=== PATIENT | male | born 1960 | race Caucasian/White ===

== ENCOUNTER → 2018-10-15 | Outpatient (CLI) | payer OTHER ==
[~2018-10-15] MED LIST: ACET120S; ASPI81CH PO; ASPI81EC PO; ATOR10 PO; BENZ100A PO; BRAIN MIGHT-DH1 EACH; CARV3.125; FERSU90EL PO; GLIP10 PO; Humalog100 UNIT/1; LISI5 PO; MELO7.5 PO; METF500 PO; METF500C PO; METR500 PO; MORP30ER PO; Naprosyn500 MG PO; PRAV20 PO; SULTRIDS PO; TRESIBA FL100 UNIT/1 SQ; VIT1CAPS12
[2018-10-15 15:19] LABS: Albumin, Blood 3.7 g/dL (3.4-5.0); Albumin/Globulin Ratio 1.1 (0.8-1.8); Bilirubin, Total 0.6 mg/dL (0.1-1.0); Bun/Creatinine Ratio 13.7 (12.0-20.0); Calcium, Blood 9.7 mg/dL (8.5-10.1); Creatinine, Blood 2.49 mg/dL (0.60-1.20); Globulin, Blood 3.5 g/dL (2.2-4.0); Potassium, Blood 5.2 mmol/L (3.5-5.5); Total Protein, Blood 7.2 g/dL (6.4-8.2)
== END | disposition home or self-care (01) ==
LOC: LAB SHORT 14:32 → LAB 14:32
PROVIDERS: Nurse Practitioner Family
DX: R10.32 Left lower quadrant pain (principal)
CPT/HCPCS: 80053

== ENCOUNTER 2019-02-14 09:05 | Emergency (ER) | payer OTHER ==
[~2019-02-14] VITALS: Ht 172.7 cm; Wt 70.3 kg
[2019-02-14 09:34] LABS: BASOPHILS ABSOLUTE AUTO 0.07 K/mm3 (0.00-0.23); BASOPHILS PERCENT AUTO 1 % (0-2); EOSINOPHILS ABSOLUTE AUTO 0.34 K/mm3 (0.00-0.68); EOSINOPHILS PERCENT AUTO 3 % (0-6); Hematocrit 40.3 % (37.0-53.0); Hemoglobin 13.2 g/dL (13.5-17.5); IMMATURE GRAN ABSOLUTE AUTO 0.06 K/mm3 (0.00-0.10); IMMATURE GRAN PERCENT AUTO 1 % (0-1); LYMPHOCYTES ABSOLUTE AUTO 2.35 K/mm3 (0.84-5.20); LYMPHOCYTES PERCENT AUTO 22 % (21-46); MONOCYTES ABSOLUTE AUTO 0.57 K/mm3 (0.16-1.47); MONOCYTES PERCENT AUTO 5 % (4-13); Mean Corpuscular HGB 30.6 pg (26.0-34.0); Mean Corpuscular HGB Conc 32.8 g/dL (31.5-36.5); Mean Corpuscular Volume 93 fL (80-100); Mean Platelet Volume 9.7 fL (9.1-12.4); NEUTROPHILS ABSOLUTE AUTO 7.18 K/mm3 (1.96-9.15); NEUTROPHILS PERCENT AUTO 68 % (41-73); Platelet Count 262 K/mm3 (150-400); RDW Coefficient Variation 12.2 % (11.7-14.2); RDW Standard Deviation 42.1 fL (35.1-46.3); Red Blood Cell Count 4.32 M/mm3 (4.30-5.90); White Blood Cell Count 10.57 K/mm3 (4.00-11.30)
[2019-02-14 09:47] LABS: International Normalized Ratio 0.96; Prothrombin Time Results 10.2 Sec (9.7-11.5)
[2019-02-14] MEDS ORDERED: CLOP75 PO (09:47)
[2019-02-14 10:00] LABS: Albumin, Blood 3.6 g/dL (3.4-5.0); Bilirubin, Total 0.4 mg/dL (0.1-1.0); Bun/Creatinine Ratio 20.6 (12.0-20.0); Calcium, Blood 8.9 mg/dL (8.5-10.1); Creatinine, Blood 1.31 mg/dL (0.60-1.20); Globulin, Blood 3.5 g/dL (2.2-4.0); Potassium, Blood 5.1 mmol/L (3.5-5.5); Total Protein, Blood 7.1 g/dL (6.4-8.2)
[2019-02-14] MEDS ORDERED: Percocet 5-3251 EACH PO (11:24)
[2019-02-14] MEDS ORDERED: Zofran4 MG PO (11:24)
== END 2019-02-14 11:53 | disposition home or self-care (01) ==
LOC: ER 09:05
PROVIDERS: Physician Assistant
DX: R51 Headache (principal); R11.0 Nausea; E11.9 Type 2 diabetes mellitus without complications; Z87.891 Personal history of nicotine dependence; Z79.82 Long term (current) use of aspirin; Z79.4 Long term (current) use of insulin; Z79.02 Long term (current) use of antithrombotics/antiplatelets; Z79.899 Other long term (current) drug therapy; Z86.73 Personal history of transient ischemic attack (TIA), and cerebral infarction without residual deficits
CPT/HCPCS: 36415; 70450; 80053; 85025; 85610; 93005; 93010; 96374; 96375; 99284-25; J1170; J2405

== ENCOUNTER → 2021-05-14 | Outpatient (CLI) | payer OTHER ==
[~2021-05-14] MED LIST changes: +CLOP75 PO; +Percocet 5-3251 EACH PO; +Zofran4 MG PO
[2021-05-14 18:28] LABS: BASOPHILS ABSOLUTE AUTO 0.08 K/mm3 (0.00-0.23); BASOPHILS PERCENT AUTO 1 % (0-2); EOSINOPHILS PERCENT AUTO 3 % (0-6); Hematocrit 41.9 % (37.0-53.0); Hemoglobin 14.1 g/dL (13.5-17.5); IMMATURE GRAN PERCENT AUTO 1 % (0-1); LYMPHOCYTES ABSOLUTE AUTO 3.22 K/mm3 (0.84-5.20); LYMPHOCYTES PERCENT AUTO 25 % (21-46); MONOCYTES ABSOLUTE AUTO 0.72 K/mm3 (0.16-1.47); MONOCYTES PERCENT AUTO 6 % (4-13); Mean Corpuscular HGB 30.9 pg (26.0-34.0); Mean Corpuscular HGB Conc 33.7 g/dL (31.5-36.5); Mean Corpuscular Volume 92 fL (80-100); NEUTROPHILS PERCENT AUTO 65 % (41-73); Platelet Count 297 K/mm3 (150-400); RDW Coefficient Variation 12.5 % (11.7-14.2); RDW Standard Deviation 41.7 fL (35.1-46.3); Red Blood Cell Count 4.56 M/mm3 (4.30-5.90); White Blood Cell Count 12.82 K/mm3 (4.00-11.30)
== END | disposition home or self-care (01) ==
LOC: LAB SHORT 18:22
PROVIDERS: Physician Assistant
DX: G50.0 Trigeminal neuralgia (principal)
CPT/HCPCS: 85025; 85651

== ENCOUNTER 2021-10-31 10:26 | Day surgery (SDC) | payer OTHER ==
[~2021-10-31] VITALS: Ht 172.7 cm; Wt 68.0 kg
[2021-10-31] MEDS ORDERED: PERIDEX15 ML (11:17)
[2021-10-31] MEDS ORDERED: GABA300 (11:18)
[2021-10-31] MEDS ORDERED: HYDCHL25 (11:18)
[2021-10-31] MEDS ORDERED: INVOKANA100 MG (11:19)
--- NOTE | 2021-10-31 11:58 | NUR ---
10/31/21 1158 Jesus Alberto Vaughn 0.15MG EPI ADDED TO 30 ML'S OF 0.5% BUPIVACAINE TO ACHIEVE SOLUTION OF 1:200,000. 5 ML'S INJ INTO OPSITE BY MAE.
--- NOTE | 2021-10-31 13:51 | NUR ---
10/31/21 1351 LC WILKINSON PT DC SBA TO GO HOME WITH .
== END 2021-10-31 13:50 | disposition home or self-care (01) ==
LOC: ORSCSDS 10:26
PROVIDERS: Otolaryngology
PROC: 0JB10ZZ Excision of Face Subcutaneous Tissue and Fascia, Open Approach (ICD-10-PCS; principal; 2021-10-31 11:45)
DX: H61.002 Unspecified perichondritis of left external ear (principal); Z87.891 Personal history of nicotine dependence; I25.10 Atherosclerotic heart disease of native coronary artery without angina pectoris; E78.5 Hyperlipidemia, unspecified; Z79.899 Other long term (current) drug therapy; E11.22 Type 2 diabetes mellitus with diabetic chronic kidney disease; I12.9 Hypertensive chronic kidney disease with stage 1 through stage 4 chronic kidney disease, or unspecified chronic kidney disease; N18.4 Chronic kidney disease, stage 4 (severe); Z79.4 Long term (current) use of insulin; Z79.02 Long term (current) use of antithrombotics/antiplatelets
CPT/HCPCS: 82947; 87071; 87075; 87205; 88305; 88312; A9270; J0171; J1100; J2250; J2370; J2405; J2704; J3010; J7120

== ENCOUNTER 2022-11-29 07:33 | Observation (INO) | payer OTHER ==
[~2022-11-29] VITALS: Ht 172.7 cm; Wt 67.7 kg
[~2022-11-29 07:33] MED LIST changes: +GABA300; +HYDCHL25; +INVOKANA100 MG; +PERIDEX15 ML
[2022-11-29 08:11] LABS: BASOPHILS ABSOLUTE AUTO 0.06 K/mm3 (0.00-0.23); BASOPHILS PERCENT AUTO 1 % (0-2); EOSINOPHILS ABSOLUTE AUTO 0.16 K/mm3 (0.00-0.68); EOSINOPHILS PERCENT AUTO 2 % (0-6); Hematocrit 36.2 % (37.0-53.0); Hemoglobin 11.4 g/dL (13.5-17.5); IMMATURE GRAN ABSOLUTE AUTO 0.02 K/mm3 (0.00-0.10); IMMATURE GRAN PERCENT AUTO 0 % (0-1); LYMPHOCYTES ABSOLUTE AUTO 1.13 K/mm3 (0.84-5.20); LYMPHOCYTES PERCENT AUTO 12 % (21-46); MONOCYTES ABSOLUTE AUTO 0.49 K/mm3 (0.16-1.47); MONOCYTES PERCENT AUTO 5 % (4-13); Mean Corpuscular HGB 29.3 pg (26.0-34.0); Mean Corpuscular HGB Conc 31.5 g/dL (31.5-36.5); Mean Corpuscular Volume 93 fL (80-100); Mean Platelet Volume 9.7 fL (9.1-12.4); NEUTROPHILS ABSOLUTE AUTO 7.72 K/mm3 (1.96-9.15); NEUTROPHILS PERCENT AUTO 81 % (41-73); Platelet Count 329 K/mm3 (150-400); RDW Coefficient Variation 12.8 % (11.7-14.2); RDW Standard Deviation 43.8 fL (35.1-46.3); Red Blood Cell Count 3.89 M/mm3 (4.30-5.90); White Blood Cell Count 9.58 K/mm3 (4.00-11.30)
[2022-11-29 08:24] LABS: Albumin, Blood 3.5 g/dL (3.4-5.0); Albumin/Globulin Ratio 0.8 (0.8-1.8); Bilirubin, Total 0.4 mg/dL (0.1-1.0); Bun/Creatinine Ratio 20.9 (12.0-20.0); Calcium, Blood 9.1 mg/dL (8.5-10.1); Creatinine, Blood 2.73 mg/dL (0.60-1.20); Globulin, Blood 4.3 g/dL (2.2-4.0); Potassium, Blood 5.2 mmol/L (3.5-5.5); Total Protein, Blood 7.8 g/dL (6.4-8.2)
[2022-11-29 12:43] VITALS: BP 150/83
[2022-11-29 14:52] VITALS: BP 150/85
[2022-11-29] MEDS ORDERED: VITAMIN D5000 UNIT PO (16:21)
--- NOTE | 2022-11-29 18:41 | NUR ---
SHIFT SUMMARY: PATIENT ARRIVES TO ROOM AT AROUND 1220'S FROM ER FOR DX OF CVA. PATIENT A&OX3 AND FORGETFULL AT TIMES. NO DEFICIT NOTED. PERRLA WNL. SENSATIONS AND STRENGTH EQUAL TO ALL EXTREMITIES. PATIENT REPORTS HEADACHE " CONSTANT AND DULL." MEDICATED X1 c PO FIORECIT c ADEQUATE RELIEF. PATIENT WORK c PT MOBILITY TODAY. PATIENT AMBULATES TO BATHROOM c SBA WITHOUT ANY GAIT DIFFICULTIES AND NO ASSISTIVE DEVICE NEEDED. DENIES CP/PRESSURE. REPORTS SOB. PATIENT ON RA c SPO2 RANGES 96-99%. PATIENT ON ADA DIET c ACCU CHECK ACHS c NO INSULIN COVERAGE ORDER. VITAL SIGNS REVIEWED. PIV TO LAC SALINE LOCKED. CALL LIGHT IN REACH.
[2022-11-29 19:10] VITALS: BP 148/77
[2022-11-30 04:41] VITALS: BP 137/71
--- NOTE | 2022-11-30 05:02 | NUR ---
Summary: No acute events overnight. VSS. Patient requested something for sleep last night, gave melatonin. Headache this am, medicated per emar. Patient independent with ambulation in room. Call light in reach.
[2022-11-30 05:06] LABS: BASOPHILS ABSOLUTE AUTO 0.08 K/mm3 (0.00-0.23); BASOPHILS PERCENT AUTO 1 % (0-2); EOSINOPHILS ABSOLUTE AUTO 0.18 K/mm3 (0.00-0.68); EOSINOPHILS PERCENT AUTO 1 % (0-6); Hematocrit 36.3 % (37.0-53.0); Hemoglobin 11.9 g/dL (13.5-17.5); IMMATURE GRAN ABSOLUTE AUTO 0.08 K/mm3 (0.00-0.10); IMMATURE GRAN PERCENT AUTO 1 % (0-1); LYMPHOCYTES ABSOLUTE AUTO 1.27 K/mm3 (0.84-5.20); LYMPHOCYTES PERCENT AUTO 9 % (21-46); MONOCYTES ABSOLUTE AUTO 0.63 K/mm3 (0.16-1.47); MONOCYTES PERCENT AUTO 5 % (4-13); Mean Corpuscular HGB 29.8 pg (26.0-34.0); Mean Corpuscular HGB Conc 32.8 g/dL (31.5-36.5); Mean Corpuscular Volume 91 fL (80-100); Mean Platelet Volume 9.9 fL (9.1-12.4); NEUTROPHILS PERCENT AUTO 83 % (41-73); Platelet Count 331 K/mm3 (150-400); RDW Coefficient Variation 12.8 % (11.7-14.2); RDW Standard Deviation 42.6 fL (35.1-46.3); Red Blood Cell Count 3.99 M/mm3 (4.30-5.90); White Blood Cell Count 13.44 K/mm3 (4.00-11.30)
[2022-11-30 05:33] LABS: Albumin, Blood 3.1 g/dL (3.4-5.0); Albumin/Globulin Ratio 0.7 (0.8-1.8); Bilirubin, Total 0.6 mg/dL (0.1-1.0); Bun/Creatinine Ratio 19.8 (12.0-20.0); Creatinine, Blood 2.47 mg/dL (0.60-1.20); Globulin, Blood 4.6 g/dL (2.2-4.0); Magnesium, Blood 2.1 mg/dL (1.6-2.4); Potassium, Blood 5.2 mmol/L (3.5-5.5); Total Protein, Blood 7.7 g/dL (6.4-8.2)
[2022-11-30 08:15] VITALS: BP 154/80
[2022-11-30 10:25] VITALS: BP 129/57
[2022-11-30 15:42] VITALS: BP 130/67
[2022-11-30] MEDS ORDERED: Carvedilol12.5 MG PO (16:38)
[2022-11-30] MEDS ORDERED: OMEP20ER PO (16:39)
[2022-11-30] MEDS ORDERED: ATOR40TA PO (16:39)
[2022-11-30] MEDS ORDERED: LOSA25 PO (16:40)
[2022-11-30] MEDS ORDERED: CLOP75 PO (16:40)
--- NOTE | 2022-11-30 17:06 | NUR ---
SHIFT SUMMARY: Pt remains A&O X3 this shift. Denies pain. VSS. Ambulating with min ast. LSCTA on RA. Voiding without difficulty. Home med list updated with Marycruz MCGHEE and pt . Dr Byers at bedside. Plan is to dc home today.
--- NOTE | 2022-11-30 18:00 | NUR ---
DISCHARGE SUMMARY: All discharge instructions reviewed with pt and at bedside. Return verbal understanding received. Pt voiced preference to walk to main entrance. Steady gait noted.
== END 2022-11-30 17:52 | disposition home or self-care (01) ==
LOC: ER 07:33 → MEDS 11:23 → ER 11:52 → MEDS 11:52
PROVIDERS: Student in an Organized Health Care Education/Training Program; ADMIT Internal Medicine
DX: I63.9 Cerebral infarction, unspecified (principal); J44.9 Chronic obstructive pulmonary disease, unspecified; N17.9 Acute kidney failure, unspecified; I12.9 Hypertensive chronic kidney disease with stage 1 through stage 4 chronic kidney disease, or unspecified chronic kidney disease; E11.22 Type 2 diabetes mellitus with diabetic chronic kidney disease; N18.30 Chronic kidney disease, stage 3 unspecified; I25.10 Atherosclerotic heart disease of native coronary artery without angina pectoris; L40.9 Psoriasis, unspecified; F41.9 Anxiety disorder, unspecified; Z88.6 Allergy status to analgesic agent; Z88.1 Allergy status to other antibiotic agents
CPT/HCPCS: 36415; 70450; 70496; 70498; 80053; 82947; 83735; 85025; 92610; 93005; 93010; 93306; 96374-59; 96375-59; 97112; 97116; 97162; 99285-25; A9270; G0378; J0360; J1200; J1650; J2765; J3010; J7030; Q9967

== ENCOUNTER → 2023-12-19 | Outpatient (CLI) | payer OTHER ==
[~2023-12-19] MED LIST changes: +ATOR40TA PO; +Betamethasone D15 G1 TOP; +Carvedilol12.5 MG PO; +DUPIXENT300 MG/21 SC; +Deltasone 10 mg10 MG PO; +ENTRESTO 24 MG1 EACH PO; +FARXIGA10 MG PO; +HUMALOG100 UNIT/1 SC; +HYDCHL25 PO; +INSULIN GL300 UNIT/1 SC; +ISOMON20 PO; +LOSA25 PO; +METO25ER PO; +METPRE4DP PO; +NEURONTIN300 MG PO; +Norco 5-325 Ta1 EACH PO; +OMEP20ER PO; +SERT50 PO; +Triamcinolone A15 G3 TOP; +VITAMIN D5000 UNIT PO; +XARELTO20 MG PO
[2023-12-19 09:36] LABS: BASOPHILS ABSOLUTE AUTO 0.02 K/mm3 (0.00-0.23); BASOPHILS PERCENT AUTO 0 % (0-2); EOSINOPHILS ABSOLUTE AUTO 0.09 K/mm3 (0.00-0.68); EOSINOPHILS PERCENT AUTO 1 % (0-6); Hematocrit 30.7 % (37.0-53.0); IMMATURE GRAN ABSOLUTE AUTO 0.06 K/mm3 (0.00-0.10); IMMATURE GRAN PERCENT AUTO 1 % (0-1); LYMPHOCYTES PERCENT AUTO 11 % (21-46); MONOCYTES ABSOLUTE AUTO 0.48 K/mm3 (0.16-1.47); MONOCYTES PERCENT AUTO 5 % (4-13); Mean Corpuscular HGB 29.5 pg (26.0-34.0); Mean Corpuscular HGB Conc 32.6 g/dL (31.5-36.5); Mean Corpuscular Volume 91 fL (80-100); Mean Platelet Volume 9.9 fL (9.1-12.4); NEUTROPHILS ABSOLUTE AUTO 8.43 K/mm3 (1.96-9.15); NEUTROPHILS PERCENT AUTO 83 % (41-73); Platelet Count 309 K/mm3 (150-400); RDW Coefficient Variation 14.1 % (11.7-14.2); RDW Standard Deviation 46.8 fL (35.1-46.3); Red Blood Cell Count 3.39 M/mm3 (4.30-5.90); White Blood Cell Count 10.18 K/mm3 (4.00-11.30)
[2023-12-19 10:26] LABS: Albumin, Blood 3.1 g/dL (3.4-5.0); Anion Gap 14 mmol/L (6-16); Blood Urea Nitrogen 56 mg/dL (8-24); Bun/Creatinine Ratio 23.1 (12.0-20.0); CO2, Blood 23 mmol/L (21-32); Calcium, Blood 8.7 mg/dL (8.5-10.1); Chloride, Blood 107 mmol/L (98-108); Creatinine, Blood 2.42 mg/dL (0.60-1.20); Glomerular Filtration Rate 30 (60-); Glucose, Blood 123 mg/dL (70-99); Phosphorus, Blood 3.5 mg/dL (2.5-4.9); Potassium, Blood 5.7 mmol/L (3.5-5.5); Sodium, Blood 138 mmol/L (136-145)
[2023-12-19 11:09] LABS: Percent Saturation 16.3 % (20.0-50.0)
== END | disposition home or self-care (01) ==
LOC: LAB SHORT 09:20 → LAB 09:20
PROVIDERS: Family Medicine
DX: D64.9 Anemia, unspecified (principal); E87.5 Hyperkalemia
CPT/HCPCS: 36415; 80069; 82728; 83540; 83550; 83735; 85025

== ENCOUNTER 2024-02-26 09:33 | Emergency (ER) | payer OTHER ==
[~2024-02-26] VITALS: Ht 172.7 cm; Wt 64.9 kg
[~2024-02-26 09:33] MED LIST changes: +ATOR80 PO; +CALC.25 PO; +ELIQUIS5 M2 PO; +EPOGEN4000 UNIT/ INJ; +HUMALOG KW100 UNIT/1 SC; +MELATONIN5 M1 PO; +ONE DAILY ESS400 MCG PO; +PANT20 PO; +Vitamin D1000 UNI1 PO; +XARELTO15 MG PO; -XARELTO20 MG PO
[2024-02-26 09:51] LABS: BASOPHILS ABSOLUTE AUTO 0.05 K/mm3 (0.00-0.23); BASOPHILS PERCENT AUTO 1 % (0-2); EOSINOPHILS ABSOLUTE AUTO 0.17 K/mm3 (0.00-0.68); EOSINOPHILS PERCENT AUTO 2 % (0-6); Hemoglobin 9.3 g/dL (13.5-17.5); IMMATURE GRAN ABSOLUTE AUTO 0.04 K/mm3 (0.00-0.10); IMMATURE GRAN PERCENT AUTO 0 % (0-1); LYMPHOCYTES ABSOLUTE AUTO 0.87 K/mm3 (0.84-5.20); LYMPHOCYTES PERCENT AUTO 10 % (21-46); MONOCYTES ABSOLUTE AUTO 0.66 K/mm3 (0.16-1.47); MONOCYTES PERCENT AUTO 7 % (4-13); Mean Corpuscular HGB 28.4 pg (26.0-34.0); Mean Corpuscular Volume 92 fL (80-100); NEUTROPHILS ABSOLUTE AUTO 7.25 K/mm3 (1.96-9.15); NEUTROPHILS PERCENT AUTO 80 % (41-73); Platelet Count 372 K/mm3 (150-400); RDW Coefficient Variation 15.4 % (11.7-14.2); RDW Standard Deviation 50.7 fL (35.1-46.3); Red Blood Cell Count 3.27 M/mm3 (4.30-5.90); White Blood Cell Count 9.04 K/mm3 (4.00-11.30)
[2024-02-26 10:07] LABS: Albumin, Blood 2.8 g/dL (3.4-5.0); Albumin/Globulin Ratio 0.7 (0.8-1.8); Bilirubin, Total 0.5 mg/dL (0.1-1.0); Calcium, Blood 8.3 mg/dL (8.5-10.1); Creatinine, Blood 2.44 mg/dL (0.60-1.20); Magnesium, Blood 2.1 mg/dL (1.6-2.4); Potassium, Blood 4.4 mmol/L (3.5-5.5); Total Protein, Blood 6.8 g/dL (6.4-8.2)
[2024-02-26] MEDS ORDERED: Acetaminophen 500 MG Tab PO ONE (10:25)
[2024-02-26] MEDS ORDERED: Epoetin Alfa-EPBX 10,000 Unit/ML 1ML Vial SC ONE (11:30)
[2024-02-26] MEDS ORDERED: Epoetin Alfa-EPBX 4,000 UNIT/ML 1ML Vial SC ONE (12:10)
[2024-02-26 12:15] VITALS: BP 114/64
== END 2024-02-26 12:27 | disposition home or self-care (01) ==
LOC: ER 09:33
PROVIDERS: Physician Assistant
DX: R55 Syncope and collapse (principal); E11.22 Type 2 diabetes mellitus with diabetic chronic kidney disease; I12.9 Hypertensive chronic kidney disease with stage 1 through stage 4 chronic kidney disease, or unspecified chronic kidney disease; N18.30 Chronic kidney disease, stage 3 unspecified; J44.9 Chronic obstructive pulmonary disease, unspecified; E78.5 Hyperlipidemia, unspecified; Z86.73 Personal history of transient ischemic attack (TIA), and cerebral infarction without residual deficits; Z87.891 Personal history of nicotine dependence; Z79.899 Other long term (current) drug therapy; Z79.4 Long term (current) use of insulin; Z88.6 Allergy status to analgesic agent; Z88.1 Allergy status to other antibiotic agents; Z88.8 Allergy status to other drugs, medicaments and biological substances
CPT/HCPCS: 70450; 71046; 80053; 83735; 85025; 93005; 93010; 96372; 99285-25; A9270; Q5106

== ENCOUNTER 2024-03-03 13:40 | Inpatient (IN) | payer OTHER ==
[~2024-03-03] VITALS: Ht 172.7 cm; Wt 63.9 kg
[2024-03-03] MEDS ORDERED: Ondansetron HCl 2 MG / ML 2ML Vial IV PRN ×2 (13:55→18:35)
[2024-03-03 14:12] LABS: BASOPHILS ABSOLUTE AUTO 0.04 K/mm3 (0.00-0.23); BASOPHILS PERCENT AUTO 0 % (0-2); EOSINOPHILS PERCENT AUTO 0 % (0-6); Hematocrit 31.4 % (37.0-53.0); Hemoglobin 9.9 g/dL (13.5-17.5); IMMATURE GRAN ABSOLUTE AUTO 0.11 K/mm3 (0.00-0.10); IMMATURE GRAN PERCENT AUTO 1 % (0-1); LYMPHOCYTES PERCENT AUTO 3 % (21-46); MONOCYTES ABSOLUTE AUTO 0.73 K/mm3 (0.16-1.47); MONOCYTES PERCENT AUTO 5 % (4-13); Mean Corpuscular HGB 28.6 pg (26.0-34.0); Mean Corpuscular HGB Conc 31.5 g/dL (31.5-36.5); Mean Corpuscular Volume 91 fL (80-100); Mean Platelet Volume 9.8 fL (9.1-12.4); NEUTROPHILS ABSOLUTE AUTO 13.22 K/mm3 (1.96-9.15); NEUTROPHILS PERCENT AUTO 91 % (41-73); Platelet Count 263 K/mm3 (150-400); RDW Standard Deviation 53.2 fL (35.1-46.3); Red Blood Cell Count 3.46 M/mm3 (4.30-5.90)
[2024-03-03 14:38] LABS: Albumin, Blood 3.1 g/dL (3.4-5.0); Albumin/Globulin Ratio 0.7 (0.8-1.8); Bilirubin, Total 0.8 mg/dL (0.1-1.0); Calcium, Blood 9.1 mg/dL (8.5-10.1); Creatinine, Blood 4.12 mg/dL (0.60-1.20); Globulin, Blood 4.5 g/dL (2.2-4.0); Potassium, Blood 4.5 mmol/L (3.5-5.5); Total Protein, Blood 7.6 g/dL (6.4-8.2)
[2024-03-03] MEDS ORDERED: NS 1,000 ML IV SCH (16:00)
[2024-03-03 17:14] LABS: Influenza A, PCR NEGATIVE (NEGATIVE); Influenza B, PCR NEGATIVE (NEGATIVE); Resp Syncytial Virus, PCR NEGATIVE (NEGATIVE); SARS-Cov-2 (COVID-19) PCR, MMC NEGATIVE (NEGATIVE)
[2024-03-03] MEDS ORDERED: Cefepime HCl 1,000 MG in NS 100 ML IV ONE (17:45)
[2024-03-03 18:12] LABS: Source, Urine Voided
[2024-03-03 18:15] LABS: Appearance, Urine Clear (Clear); Bilirubin, Urine Neg (Neg); Blood, Urine 2+ (Neg); Color, Urine Yellow (P-Yellow); Glucose Qualitative, Urine Neg (Neg); Ketones, Urine Neg (Neg); Leukocyte Esterase, Urine Neg (Neg); Nitrite, Urine Neg (Neg); Protein, Urine 4+ (Neg); Urobilinogen, Urine 1+ (Normal)
[2024-03-03 18:24] LABS: Amorphous Light (0-Heavy); Bacteria Few /hpf; Squamous Epithelial Cells Rare /hpf (Few); White Blood Cells, Urine 0-2 /hpf (0-5)
[2024-03-03 18:25] LABS: Hyaline Casts 0-2 /lpf (0-2)
[2024-03-03] MEDS ORDERED: Acetaminophen 325 MG TABLET PO PRN (18:35)
[2024-03-03] MEDS ORDERED: Vancomycin HCL 1,500 MG in NS 250 ML IV ONE (20:00)
[2024-03-03] MEDS ORDERED: Vancomycin HCL 1,250 MG in NS 250 ML IV ONE (20:05)
[2024-03-03] MEDS ORDERED: Apixaban 5 MG Tab PO SCH (21:00)
[2024-03-03] MEDS ORDERED: Insulin Glargine-Yfgn 100 Unit/mL 3 ML SYR SC SCH (21:00)
[2024-03-03] MEDS ORDERED: NITR.4SL (21:07)
[2024-03-03 22:46] VITALS: BP 138/64
[2024-03-04] MEDS ORDERED: CALC.25 PO (01:41)
[2024-03-04] MEDS ORDERED: DUPIXENT P300 MG/2 M SC (01:42)
[2024-03-04] MEDS ORDERED: PROCRIT4000 UNIT/ SC (01:43)
[2024-03-04] MEDS ORDERED: TOUJEO SOL300 UNIT/2 SC (01:44)
[2024-03-04] MEDS ORDERED: MELATONIN5 M1 PO (01:45)
[2024-03-04] MEDS ORDERED: HUMALOG KW100 UNIT/1 SC (01:45)
[2024-03-04] MEDS ORDERED: MIRALAX17 GM PO (01:46)
[2024-03-04] MEDS ORDERED: PANT20 PO (01:46)
[2024-03-04] MEDS ORDERED: MULVITA PO (01:46)
[2024-03-04] MEDS ORDERED: Triamcinolone A15 G3 TOP (01:48)
[2024-03-04 03:50] VITALS: BP 116/70
--- NOTE | 2024-03-04 04:27 | NUR ---
SHIFT SUMMARY PATIENT ABLE TO SLEEP INLONG INTERVAL. C/O HEADACHE, BUT TOO EARLY TO MEDICATE WITH TYLENOL. TELE SR 81. NO NAUSEA DRINKING WATER
[2024-03-04 05:23] LABS: BASOPHILS ABSOLUTE AUTO 0.02 K/mm3 (0.00-0.23); BASOPHILS PERCENT AUTO 0 % (0-2); Hematocrit 24.6 % (37.0-53.0); LYMPHOCYTES ABSOLUTE AUTO 0.55 K/mm3 (0.84-5.20); LYMPHOCYTES PERCENT AUTO 4 % (21-46); MONOCYTES ABSOLUTE AUTO 0.96 K/mm3 (0.16-1.47); MONOCYTES PERCENT AUTO 7 % (4-13); Mean Corpuscular HGB Conc 32.5 g/dL (31.5-36.5); Mean Corpuscular Volume 89 fL (80-100); Mean Platelet Volume 9.9 fL (9.1-12.4); Platelet Count 199 K/mm3 (150-400); RDW Standard Deviation 51.9 fL (35.1-46.3); Red Blood Cell Count 2.76 M/mm3 (4.30-5.90); White Blood Cell Count 14.34 K/mm3 (4.00-11.30)
[2024-03-04 05:27] LABS: EOSINOPHILS PERCENT AUTO 0 % (0-6); IMMATURE GRAN ABSOLUTE AUTO 0.14 K/mm3 (0.00-0.10); IMMATURE GRAN PERCENT AUTO 1 % (0-1); NEUTROPHILS ABSOLUTE AUTO 12.67 K/mm3 (1.96-9.15); NEUTROPHILS PERCENT AUTO 88 % (41-73)
[2024-03-04 05:46] LABS: Bun/Creatinine Ratio 17.7 (12.0-20.0); Calcium, Blood 8.3 mg/dL (8.5-10.1); Creatinine, Blood 4.41 mg/dL (0.60-1.20); Magnesium, Blood 2.2 mg/dL (1.6-2.4)
[2024-03-04 05:50] LABS: BAND PERCENT MAN 4 % (0-8); BASOPHILS PERCENT MAN 0 % (0-2); EOSINOPHILS PERCENT MAN 0 % (0-6); LYMPHOCYTES ABSOLUTE MAN 0.14 K/mm3 (0.84-5.20); LYMPHOCYTES PERCENT MAN 1 % (21-46); MONOCYTES ABSOLUTE MAN 0.28 K/mm3 (0.16-1.47); MONOCYTES PERCENT MAN 2 % (4-13); SEG NEUTROPHILS PERCENT MAN 93 % (41-73); TOTAL CELLS COUNTED 100
[2024-03-04] MEDS ORDERED: Pantoprazole Sodium 20 MG Tab PO SCH (06:00)
[2024-03-04] MEDS ORDERED: Insulin Human Lispro 100 Units/ML 3ML Syringe SC SCH ×3 (07:30→21:00)
[2024-03-04 07:36] VITALS: BP 113/65
[2024-03-04] MEDS ORDERED: Heparin Sodium,Porcine 5,000 UNIT/0.5 ML SDV SC SCH (08:00)
[2024-03-04] MEDS ORDERED: Carvedilol 6.25 MG Tab PO SCH (08:00)
[2024-03-04] MEDS ORDERED: Metoprolol Succinate 50 MG TABCR PO SCH (09:00)
[2024-03-04] MEDS ORDERED: Atorvastatin 40 MG Tab PO SCH (09:00)
[2024-03-04 09:29] LABS: Vancomycin, Random 20.1 ug/mL
[2024-03-04] MEDS ORDERED: CefTRIAXone Sodium 1,000 MG in NS 100 ML IV SCH (12:00)
[2024-03-04] MEDS ORDERED: HYDROcodone 5-APAP 325 TAB PO PRN (12:30)
[2024-03-04 16:04] VITALS: BP 96/56
--- NOTE | 2024-03-04 17:19 | NUR ---
SHIFT SUMMARY; PATIENT WILL HAVE PERMA CATH REMOVED TOMORROW. HOPE IS FOR BEFORE NOON. PATIENT IS AO X 4 TODAY. AFEBRILE. COMPLAINS OF MIGRAINE HEADACHE EARLY AFTERNOON AND IS MEDICATED WITH HYDROCODONE 5/325 FOR PAIN. PATIENT SAYS IT BROUGHT LEVEL TO MANAGEABLE LEVEL. HE IS NOTED TO BE UP AMBULATING USING FWW IN HALLWAY AND AROUND UNIT. PATIENT HAS PLEASANT AFFECT AND IS COOPERATIVE WITH CARE. HIS CHEM BG ARE IN THE 200 RANGE THROUGHOUT DAY AND HE RECEIVES INSULIN ORDERED. HE IS ON A 2GM LOW SODIUM RENAL DIET AND 2 LITER FLUID RESTRICTION. WILL CONTINUE TO MONITOR THIS PATIENT CLOSELY UNTIL REPORT AND HAND OFF TO NOC SHIFT RN.
[2024-03-04] MEDS ORDERED: Cefepime HCl 1,000 MG in NS 100 ML IV SCH (18:00)
[2024-03-04 19:23] VITALS: BP 100/53
[2024-03-05 04:21] VITALS: BP 122/62
[2024-03-05 05:48] LABS: BASOPHILS ABSOLUTE AUTO 0.02 K/mm3 (0.00-0.23); BASOPHILS PERCENT AUTO 0 % (0-2); EOSINOPHILS ABSOLUTE AUTO 0.15 K/mm3 (0.00-0.68); EOSINOPHILS PERCENT AUTO 2 % (0-6); Hematocrit 24.7 % (37.0-53.0); IMMATURE GRAN ABSOLUTE AUTO 0.02 K/mm3 (0.00-0.10); IMMATURE GRAN PERCENT AUTO 0 % (0-1); LYMPHOCYTES ABSOLUTE AUTO 0.75 K/mm3 (0.84-5.20); LYMPHOCYTES PERCENT AUTO 8 % (21-46); MONOCYTES PERCENT AUTO 10 % (4-13); Mean Corpuscular HGB Conc 32.4 g/dL (31.5-36.5); Mean Corpuscular Volume 90 fL (80-100); Mean Platelet Volume 10.2 fL (9.1-12.4); NEUTROPHILS PERCENT AUTO 80 % (41-73); Platelet Count 182 K/mm3 (150-400); RDW Coefficient Variation 15.7 % (11.7-14.2); RDW Standard Deviation 50.7 fL (35.1-46.3); Red Blood Cell Count 2.76 M/mm3 (4.30-5.90); White Blood Cell Count 9.04 K/mm3 (4.00-11.30)
[2024-03-05 06:23] LABS: Albumin, Blood 2.5 g/dL (3.4-5.0); Anion Gap 13 mmol/L (3-11); Blood Urea Nitrogen 99 mg/dL (8-24); Bun/Creatinine Ratio 21.4 (12.0-20.0); CO2, Blood 25 mmol/L (21-32); Calcium, Blood 8.8 mg/dL (8.5-10.1); Chloride, Blood 97 mmol/L (98-108); Creatinine, Blood 4.62 mg/dL (0.60-1.20); Glomerular Filtration Rate 14 (60-); Glucose, Blood 169 mg/dL (70-99); Potassium, Blood 3.8 mmol/L (3.5-5.5); Sodium, Blood 131 mmol/L (136-145); Vancomycin, Random 15.8 ug/mL
--- NOTE | 2024-03-05 07:08 | NUR ---
NO ACUTE CHANGES OVERNIGHT. NO SIGNS OF FLUID OVERLOAD. NO SWELLING, LUNGS ARE CLEAR, NO SOB. PT HAS BEEN NPO SINCE MIDNIGHT. TALKED TO WARP TESTER MD AND GOT STOOL SOFTENERS ORDERED AND CLARIFIED OK TO HOLD SQ HEPARIN FOR PROCEDURE.
[2024-03-05 07:35] VITALS: BP 101/54
[2024-03-05] MEDS ORDERED: Sertraline HCl 50 MG Tab PO SCH (09:00)
[2024-03-05] MEDS ORDERED: Docusate Sodium/Senna 1 Tab PO SCH (09:00)
[2024-03-05] MEDS ORDERED: Vancomycin HCL 750 MG in NS 250 ML IV ONE (09:55)
[2024-03-05 14:39] VITALS: BP 111/74
--- NOTE | 2024-03-05 16:52 | NUR ---
SHIFT SUMMARY; PERMACATH REMOVED BY DR.SAVATORE KINNEY IN PATIENT ROOM. PATIENT TOLERATED WELL. MINIMAL BLEEDING NOTED AND PATIENT DENIES ANY PAIN AFTER PROCEDURE FROM PERMACATH SITE. PER MD PATIENT CAN TAKE SHOWER TOMORROW WITH SITE COVERED. PATIENT COMPLAINS OF FEELING VERY TIRED TODAY. HE IS NOTED TO BE UP AND AMBULATING IN HALLWAY OFTEN. HE HAS FAIR APPETITE AND SPOUSE BRINGS HIM VENISON WITH ONIONS FROM HOME. HIS BLOOD SUGARS ARE ELEVATE DURING DAY AND HE RECEVES INSULIN FOR COVERAGE. NEW ORDER FOR IRON PO TODAY.
[2024-03-05] MEDS ORDERED: Ferrous Sulfate 325 MG Tab PO SCH (17:00)
--- NOTE | 2024-03-05 18:23 | NUR ---
Encountered Pt. as he is slowly walking the halls with his walker. Pt. displays evidence of being weak, so this cigar bander hand stayed with him till he returned to the room. Pt. displayed evidence of mixed emotions. Pt. verbalized that he doesn't want to be a burden to his , while on his own he is trying to make himself stronger. Listen with empathy and pastoral care. Pts. overall demeanor reflected exhaustion. Once in is room, this cigar bander hand Prayed for the Pt. Pt. verbalized gratitude for the companionship and spiritual care support.
[2024-03-05 19:48] VITALS: BP 125/65
[2024-03-06 03:24] VITALS: BP 129/76
--- NOTE | 2024-03-06 04:30 | NUR ---
DRUG INSPECTOR SUMMARY NO ACUTE CHANGES OVERNIGHT. SITE WHERE PERMACATH WAS PULLED MONITORED AND REMAINS WNL. PT CONTINUES TO SHOW NO SIGNS OF FLUID OVERLOAD WITH VITALS WNL.
[2024-03-06 06:24] LABS: Vancomycin, Random 21.8 ug/mL
[2024-03-06 07:11] VITALS: BP 131/60
[2024-03-06] MEDS ORDERED: Insulin Human Lispro 100 Units/ML 3ML Syringe SC SCH (08:30)
[2024-03-06 08:32] LABS: BASOPHILS ABSOLUTE AUTO 0.03 K/mm3 (0.00-0.23); BASOPHILS PERCENT AUTO 0 % (0-2); EOSINOPHILS ABSOLUTE AUTO 0.09 K/mm3 (0.00-0.68); EOSINOPHILS PERCENT AUTO 1 % (0-6); Hematocrit 25.3 % (37.0-53.0); Hemoglobin 8.3 g/dL (13.5-17.5); IMMATURE GRAN ABSOLUTE AUTO 0.05 K/mm3 (0.00-0.10); IMMATURE GRAN PERCENT AUTO 1 % (0-1); LYMPHOCYTES ABSOLUTE AUTO 0.68 K/mm3 (0.84-5.20); LYMPHOCYTES PERCENT AUTO 8 % (21-46); MONOCYTES ABSOLUTE AUTO 0.72 K/mm3 (0.16-1.47); MONOCYTES PERCENT AUTO 9 % (4-13); Mean Corpuscular HGB 28.8 pg (26.0-34.0); Mean Corpuscular HGB Conc 32.8 g/dL (31.5-36.5); Mean Corpuscular Volume 88 fL (80-100); Mean Platelet Volume 10.2 fL (9.1-12.4); NEUTROPHILS ABSOLUTE AUTO 6.54 K/mm3 (1.96-9.15); NEUTROPHILS PERCENT AUTO 81 % (41-73); Platelet Count 205 K/mm3 (150-400); RDW Coefficient Variation 15.5 % (11.7-14.2); RDW Standard Deviation 49.9 fL (35.1-46.3); Red Blood Cell Count 2.88 M/mm3 (4.30-5.90); White Blood Cell Count 8.11 K/mm3 (4.00-11.30)
[2024-03-06 08:42] LABS: Albumin, Blood 2.5 g/dL (3.4-5.0); Anion Gap 14 mmol/L (3-11); Blood Urea Nitrogen 94 mg/dL (8-24); Bun/Creatinine Ratio 22.8 (12.0-20.0); CO2, Blood 23 mmol/L (21-32); Calcium, Blood 8.4 mg/dL (8.5-10.1); Chloride, Blood 101 mmol/L (98-108); Creatinine, Blood 4.13 mg/dL (0.60-1.20); Glomerular Filtration Rate 16 (60-); Glucose, Blood 206 mg/dL (70-99); Phosphorus, Blood 3.8 mg/dL (2.5-4.9); Sodium, Blood 134 mmol/L (136-145)
[2024-03-06] MEDS ORDERED: CeFAZolin Sodium 2,000 MG in NS 100 ML IV ONE (11:55)
--- NOTE | 2024-03-06 12:39 | NUR ---
CALL FROM SHA IN LAB: BLOOD CULTURE YIELDED GRAM-POSITIVE COCCI IN CLUSTERS.
[2024-03-06 14:56] VITALS: BP 132/74
[2024-03-06] MEDS ORDERED: Polyethylene Glycol 3350 17 gm PO SCH (15:35)
--- NOTE | 2024-03-06 15:36 | NUR ---
CONTACTED DR RAMOS FOR BOWEL MEDICATIONS. INFORMED HIM THAT PATIENT CONTINUES TO DUMP URINE MAKING IT DIFFICULT TO ACCURATELY MEASURE. PATIENT INDEPENDENT IN ROOM AND A/O X4. DOC WOULD LIKE TO CONTINUE TO OBTAIN MEASUREMENTS. SIGNAGE PLACED IN PATIENT'S BATHROOM AND GIVEN SEVERAL VERBAL REMINDERS TO SAVE URINE FOR MEASUREMENT. DISCUSSED PATIENT WRITING IT ON BOARD IF UNCOMFORTABLE WITH SAVING IT, PATIENT DEFERRED TO THE LATER. STRICT I &O ORDER PLACED.
--- NOTE | 2024-03-06 16:43 | NUR ---
SHIFT SUMMARY PATIENT INDEPENDENT IN ROOM. STRICT I &O, WHICH PATIENT HAS DIFFICULTIES WITH, SIGNAGE PLACED IN BATHROOM TO HELP HIM REMEMBER. GIVEN MIRALAX AND SWAMP JUICE THIS SHIFT WITH GOOD RESULTS, MEDIUM BM. C/O PAIN TO POSTERIOR RIGHT EAR OCCIPUT REGION, GIVEN NORCO FOR RELIEF. BLOOD CX RESULTED WITH BACTERIA GROWTH CONTINUED. ABLE TO MAKE NEEDS KNOWN. CALL LIGHT IN REACH WHEN IN ROOM. CARES ONGOING.
--- NOTE | 2024-03-06 18:43 | NUR ---
CONTACTED DR RAMOS REGARDING PERSISTENT RIGHT EAR PAIN. PATIENT STATES THE PAIN CAME ON SUDDENLY AND HASN'T RESPONDED TO NORCO DOSE GIVEN. RECEIVED ORDER FOR ONE TIME ADDITIONAL NORCO 10MG TO BE GIVEN AND TO CONTINUE TO OFFER ICE. STATED IF PAIN PERSISTED INTO TOMORROW HE WOULD CONSIDER IMAGING.
[2024-03-06] MEDS ORDERED: HYDROcodone 10-APAP 325 TAB PO ONE (18:45)
[2024-03-06 19:13] VITALS: BP 142/67
[2024-03-07] MEDS ORDERED: CeFAZolin Sodium 1,000 MG in NS 50 ML IV SCH
--- NOTE | 2024-03-07 03:44 | NUR ---
BIN FILLER SUMMARY NO ACUTE CHANGES OVERNIGHT. PT IS MAKING SOME URINE AND IS BEING COMPLIANT ABOUT USING THE URINAL INSTEAD OF THE TOILET. (SEE I$O). STRICT I AND O IN PROGRESS. NO SIGNS OF FLUID OVERLOAD. HE DOESNT APPEAR SWOLLEN, LUNGS ARE CLEAR, NO SOB WHILE AMBULATING IN THE HALLWAY. HE CONTINUES TO ASK FOR PAIN MEDICATION RELATED TO HIS FALL AT HOME (HIS HIPS AND RIBS ARE PAINFUL). BUT HE IS ALSO COMPLAINING OF PAIN BEHIND HIS R EAR, SHARP, STABBING AND INTERMITTENT. HE SAYS HE WILL DISCUSS THIS WITH HIS DOCTOR AGAIN TODAY. HE IS FIXATED ON GETTING HIS EAR EVALUATED.
[2024-03-07 04:23] VITALS: BP 161/82
[2024-03-07 07:49] VITALS: BP 144/62
[2024-03-07 09:23] LABS: Albumin, Blood 2.6 g/dL (3.4-5.0); Anion Gap 14 mmol/L (3-11); Blood Urea Nitrogen 95 mg/dL (8-24); Bun/Creatinine Ratio 25.6 (12.0-20.0); CO2, Blood 22 mmol/L (21-32); Calcium, Blood 8.9 mg/dL (8.5-10.1); Chloride, Blood 105 mmol/L (98-108); Creatinine, Blood 3.71 mg/dL (0.60-1.20); Glomerular Filtration Rate 18 (60-); Glucose, Blood 133 mg/dL (70-99); Phosphorus, Blood 3.2 mg/dL (2.5-4.9); Potassium, Blood 4.2 mmol/L (3.5-5.5); Sodium, Blood 137 mmol/L (136-145)
--- NOTE | 2024-03-07 14:47 | NUR ---
CALLED BLOOD CULTURE RESULTS TO DR RAMOS THAT WERE DRAWN 03/06. STATED NO CX TODAY, BUT WOULD DRAW TOMORROW AGAIN.
[2024-03-07 15:36] VITALS: BP 134/64
--- NOTE | 2024-03-07 17:31 | NUR ---
PATIENT DECLINED TO HAVE STAFF CHECK BLOOD SUGAR WITH OUR EQUIPMENT, HAS METER PLACED TO L ARM. STATED READING PRIOR TO EATING WAS 128. SPOUSE BROUGHT IN DINNER FROM [employer], APPROXIMATE CARBS CONSUMED THIS MEAL WAS 15. 1 UNIT HUMALOG ADMINISTERED.
--- NOTE | 2024-03-07 17:38 | NUR ---
SHIFT SUMMARY PATIENT INDEPENDENT IN ROOM AND HALLS THIS SHIFT, INTERACTING PLEASANTLY WITH STAFF. VSS AND WNL. ECHO SCHEDULED, WILL PROBABLY HAPPEN TOMORROW. CT OF FACE PERFOMED THIS SHIFT, FOLLOWING UP FROM C/O EAR PAIN. SEE REPORT. SEVERAL REMINDERS TO SAVE URINE OUTPUT FOR MEASURING. CONTINUES TO COMPLAIN OF RIGHT EAR PAIN, GIVEN NORCO WITH MINIMAL RELIEF, STATED IT TAKES THE EDGE OFF AND STOPS THE PULSATING SENSATION. CONTINUING TO WAIT FOR NEG BLOOD CX RESULTS. CALL LIGHT IN REACH WHEN IN ROOM, ABLE TO MAKE NEEDS KNOWN. CARES ONGOING.
[2024-03-07] MEDS ORDERED: Insulin Glargine-Yfgn 100 Unit/mL 3 ML SYR SC SCH (21:00)
[2024-03-07 21:22] VITALS: BP 171/77
[2024-03-07 22:00] VITALS: BP 158/92
[2024-03-08 04:45] VITALS: BP 144/57
[2024-03-08 06:06] LABS: BASOPHILS ABSOLUTE AUTO 0.05 K/mm3 (0.00-0.23); BASOPHILS PERCENT AUTO 1 % (0-2); EOSINOPHILS ABSOLUTE AUTO 0.17 K/mm3 (0.00-0.68); EOSINOPHILS PERCENT AUTO 2 % (0-6); Hematocrit 26.8 % (37.0-53.0); Hemoglobin 8.7 g/dL (13.5-17.5); IMMATURE GRAN ABSOLUTE AUTO 0.42 K/mm3 (0.00-0.10); IMMATURE GRAN PERCENT AUTO 4 % (0-1); LYMPHOCYTES ABSOLUTE AUTO 1.36 K/mm3 (0.84-5.20); LYMPHOCYTES PERCENT AUTO 14 % (21-46); MONOCYTES ABSOLUTE AUTO 0.82 K/mm3 (0.16-1.47); MONOCYTES PERCENT AUTO 8 % (4-13); Mean Corpuscular HGB 28.6 pg (26.0-34.0); Mean Corpuscular HGB Conc 32.5 g/dL (31.5-36.5); Mean Corpuscular Volume 88 fL (80-100); Mean Platelet Volume 9.8 fL (9.1-12.4); NEUTROPHILS ABSOLUTE AUTO 6.94 K/mm3 (1.96-9.15); NEUTROPHILS PERCENT AUTO 71 % (41-73); Platelet Count 304 K/mm3 (150-400); RDW Coefficient Variation 15.5 % (11.7-14.2); RDW Standard Deviation 49.8 fL (35.1-46.3); Red Blood Cell Count 3.04 M/mm3 (4.30-5.90); White Blood Cell Count 9.76 K/mm3 (4.00-11.30)
[2024-03-08 06:40] LABS: Albumin, Blood 2.6 g/dL (3.4-5.0); Anion Gap 14 mmol/L (3-11); Blood Urea Nitrogen 86 mg/dL (8-24); Bun/Creatinine Ratio 24.7 (12.0-20.0); CO2, Blood 21 mmol/L (21-32); Calcium, Blood 9.1 mg/dL (8.5-10.1); Chloride, Blood 108 mmol/L (98-108); Creatinine, Blood 3.48 mg/dL (0.60-1.20); Glomerular Filtration Rate 19 (60-); Glucose, Blood 101 mg/dL (70-99); Phosphorus, Blood 3.3 mg/dL (2.5-4.9); Potassium, Blood 4.4 mmol/L (3.5-5.5); Sodium, Blood 139 mmol/L (136-145)
--- NOTE | 2024-03-08 06:43 | NUR ---
HIRED WORKER SUMMARY --9-2 NO ACUTE CHANGES OVERNIGHT. PT IS MAKING SOME URINE AND IS BEING COMPLIANT WITH STRICT I AND OS. NO SIGNS OF FLUID OVERLOAD. HE ASKS FOR PAIN MEDICATION FOR THE PAIN BEHIND HIS R EAR AND THE PAIN FROM HIS FALL TO HIS RIBS AND HIPS. NORCO APPEARS VERY EFFECTIVE FOR HIS PAIN AND HE APPEARED TO SLEEP WELL.
[2024-03-08 07:29] VITALS: BP 134/62
[2024-03-08] MEDS ORDERED: Epoetin Alfa-EPBX 10,000 Unit/ML 1ML Vial SC SCH (09:00)
--- NOTE | 2024-03-08 12:42 | NUR ---
PATIENT C/O NO APPETITE FOR SOLID FOOD BUT DID REQUEST TWO ENSURES FOR LUNCH.
--- NOTE | 2024-03-08 12:48 | NUR ---
TOOK PATIENT HIS LUNCH TRAY. C/O RIGHT EAR PAIN, SEVERE HEADACHE AND NOT WANTING TO EAT. REQUESTED TRAY BE REMOVED FROM ROOM AND REQUESTED ENSURE x2.
[2024-03-08 15:41] VITALS: BP 141/55
--- NOTE | 2024-03-08 16:30 | NUR ---
RETURNED CALL TO . SHE WANTED TO CHECK ON PATIENT HE HAS BEEN AVOIDING HER PHONE CALLS AND VERY SLEEPY WHEN SHE HAS SPOKEN TO HIM. THIS RN HAS NOTICED THAT PATIENT HAS BEEN MORE TIRED, TODAY. PATIENT DID STATE HE'S ALWAYS TAKEN 25MG SERTRALINE AND HE IS ON 50MG HERE WHICH HE THINKS MAY BE CONTRIBUTING TO HIS FATIGUE. WILL DISCUSS WITH PROVIDER.
--- NOTE | 2024-03-08 16:43 | NUR ---
CALL TO PROVIDER WHO WILL ADJUST SERTRALINE.
[2024-03-08] MEDS ORDERED: ValACYClovir HCL 500 MG Tab PO SCH (19:00)
--- NOTE | 2024-03-08 19:50 | NUR ---
END OF SHIFT SUMMARY: A&Ox4. PLEASANT AND COOPERATIVE WITH CARE. CALLS APPROPRIATELY AND IS ABLE TO ADVOCATE NEEDS EFFECTIVELY. AMBULATION. CONTINENT OF BOTH BOWEL AND BLADDER. NO BM REPORTED TODAY. TRACKING URINE OUTPUT. MEDS WHOLE WITH FLUIDS. TELE NS c BBB @ 72bpm. C / O PAIN DIRECTLY BEHIND RIGHT EAR/CARTILAGE IN EMINENT OF CONCH REGION. ? SEVERE HEADACHE. VERY FATIGUED TODAY AND HAS SLEPT MUCH OF THE DAY. MORE APATHETIC THIS AFTERNOON, AVOIDING S PHONE CALLS. DR. RAMOS MADE ADJUSTMENT TO SERTRALINE DOSE AND TIMING. IN TO VISIT AND BROUGHT HIM DINNER. HE DID NOT EAT LUNCH, BUT INSTEAD OPTED FOR TWO GLUCERNA ORAL SUPPLEMENT DRINKS. AMBULATES INDEPENDENTLY c FWW, BUT WAS NOTED TO BE DOING LESS WALKING TODAY. ECHO COMPLETED TODAY; RESULTS PENDING. AROUND 1800 PATIENT S NOTED PT TO HAVE PATCHY AREA OF FLUID-FILLED VESICLES RIGHT BANDING ALONG RIGHT SIDE OF NECK. PT CONFIRMED Hx SHINGLES. CALL TO PROVIDER: GIVEN SEVERE HEADACHE, MALAISE/FATIGUE AND EAR PAIN TODAY, STARTED ON VALTREX, PLACED ON AIRBORNE PRECAUTIONS WITH PLANS TO MOVE TO AIRBORNE ROOM. BED IN LOWEST POSITION. CALL LIGHT WITHIN REACH. ALL NEEDS MET. REPORT TO ONCOMING RN.
[2024-03-09 03:55] VITALS: BP 150/74
--- NOTE | 2024-03-09 04:12 | NUR ---
AIR BAG BUILDER SUMMARY PT WAS MOVED TO ROOM 332, A NEGATIVE PRESSURE ROOM, RELATED TO HIS SHINGLES OUTBREAK. HOWEVER, ACCORDING TO OUR PROTOCOL, SINCE HIS SHINGLES ARE LOCATED IN ONE DERMATOME AND ARE NOT YET WEEPING, HE DOESNT NEED TO BE ON AIRBORNE PRECAUTIONS. WE WILL KEEP HIM LOCATED THERE JUST IN CASE HIS LESIONS OPEN. PT CONTINUES TO EXPERIENCE SHINGLES RELATED PAIN. [employer] APPEARS TO WORK WELL FOR THIS. PT CONTINUES TO USE URINAL FOR ADEQUATE URINE MEASURING. NO SIGNS OF FLUID OVERLOAD. ANTICIPATE ECHO WILL BE INTERPRETED TODAY.
[2024-03-09 05:13] LABS: Hematocrit 29.4 % (37.0-53.0); Hemoglobin 9.2 g/dL (13.5-17.5); Mean Corpuscular HGB 28.3 pg (26.0-34.0); Mean Corpuscular HGB Conc 31.3 g/dL (31.5-36.5); Mean Corpuscular Volume 91 fL (80-100); Mean Platelet Volume 9.7 fL (9.1-12.4); Platelet Count 373 K/mm3 (150-400); RDW Coefficient Variation 15.5 % (11.7-14.2); RDW Standard Deviation 51.4 fL (35.1-46.3); Red Blood Cell Count 3.25 M/mm3 (4.30-5.90); White Blood Cell Count 9.76 K/mm3 (4.00-11.30)
[2024-03-09 05:38] LABS: Albumin, Blood 2.7 g/dL (3.4-5.0); Anion Gap 14 mmol/L (3-11); Blood Urea Nitrogen 75 mg/dL (8-24); Bun/Creatinine Ratio 23.9 (12.0-20.0); CO2, Blood 21 mmol/L (21-32); Calcium, Blood 9.4 mg/dL (8.5-10.1); Chloride, Blood 110 mmol/L (98-108); Creatinine, Blood 3.14 mg/dL (0.60-1.20); Glomerular Filtration Rate 22 (60-); Glucose, Blood 84 mg/dL (70-99); Phosphorus, Blood 3.8 mg/dL (2.5-4.9); Potassium, Blood 4.8 mmol/L (3.5-5.5); Sodium, Blood 140 mmol/L (136-145)
[2024-03-09 05:53] LABS: BAND PERCENT MAN 2 % (0-8); BASOPHILS ABSOLUTE MAN 0.29 K/mm3 (0.00-0.23); BASOPHILS PERCENT MAN 3 % (0-2); EOSINOPHILS ABSOLUTE MAN 0.29 K/mm3 (0.00-0.68); EOSINOPHILS PERCENT MAN 3 % (0-6); LYMPHOCYTES % ATYPICAL MANUAL 3 % (0-0); LYMPHOCYTES ABSOLUTE MAN 2.34 K/mm3 (0.84-5.20); LYMPHOCYTES PERCENT MAN 21 % (21-46); MONOCYTES ABSOLUTE MAN 0.68 K/mm3 (0.16-1.47); MONOCYTES PERCENT MAN 7 % (4-13); NEUTROPHILS ABSOLUTE MAN 6.14 K/mm3 (1.96-9.15); SEG NEUTROPHILS PERCENT MAN 61 % (41-73); TOTAL CELLS COUNTED 100
[2024-03-09 07:55] VITALS: BP 140/64
[2024-03-09] MEDS ORDERED: Ergocalciferol 50000 Intn'l Units PO SCH (11:25)
--- NOTE | 2024-03-09 11:34 | NUR ---
Pt. is awake in bed while in isolation for Shingles when he welcomes my visit. Pt. is pleasant but displays fatigue from the lengthy series of hospital visits. Pt. verbalized that he wasn't eating much, and that the meals he was provdied did not appeal to him. Pt. verbalized that what he really wanted was biscuits and gravy, and/or a mocha. Facilitated more life review. Pt. displays evidence of trust, engagement, and hope. Prayed with Pt. Pt. verbalized gratitude for the spiritual care visit. After the visit this transfer agent confirmed with the Pts. nurse if it would be permissible to provide the Pt. with a Mocha. Upon apprival of Pts. nurse, this transfer agent provided a sugar-free Mocha to the Pt. Pt. verbalized gratitude for the gift.
[2024-03-09 16:19] VITALS: BP 149/65
[2024-03-09] MEDS ORDERED: Ascorbic Acid 250 MG Chew PO SCH (17:00)
--- NOTE | 2024-03-09 19:38 | NUR ---
VSS, A-Ox4, denies SOB, states 7 our of 10 pain that was well managed with prn norco, ambulates independently, on RA. Lungs clear, heart regular, bowel sounds normative, continent of urine, shingles dry intact, dressing C/D/I. Pt can make needs known, call taveras in hand, bed in lowest position.
[2024-03-09 20:01] VITALS: BP 146/60
[2024-03-09] MEDS ORDERED: Sertraline HCl 50 MG Tab PO SCH (21:00)
--- NOTE | 2024-03-10 04:02 | NUR ---
PT C/O PAIN. MEDICATED X 1 THROUGH THE NIGHT. RESTING QUIETLY IN BED WITH EYES CLOSED. RESP EVEN AND UNLABORED. NO DISTRESS NOTED.
[2024-03-10 04:45] VITALS: BP 161/70
[2024-03-10 05:59] LABS: BASOPHILS ABSOLUTE AUTO 0.08 K/mm3 (0.00-0.23); BASOPHILS PERCENT AUTO 1 % (0-2); EOSINOPHILS ABSOLUTE AUTO 0.43 K/mm3 (0.00-0.68); EOSINOPHILS PERCENT AUTO 5 % (0-6); Hematocrit 27.9 % (37.0-53.0); Hemoglobin 8.8 g/dL (13.5-17.5); IMMATURE GRAN ABSOLUTE AUTO 0.52 K/mm3 (0.00-0.10); IMMATURE GRAN PERCENT AUTO 6 % (0-1); LYMPHOCYTES ABSOLUTE AUTO 1.75 K/mm3 (0.84-5.20); LYMPHOCYTES PERCENT AUTO 19 % (21-46); MONOCYTES ABSOLUTE AUTO 0.75 K/mm3 (0.16-1.47); MONOCYTES PERCENT AUTO 8 % (4-13); Mean Corpuscular HGB 28.3 pg (26.0-34.0); Mean Corpuscular HGB Conc 31.5 g/dL (31.5-36.5); Mean Corpuscular Volume 90 fL (80-100); Mean Platelet Volume 9.8 fL (9.1-12.4); NEUTROPHILS ABSOLUTE AUTO 5.81 K/mm3 (1.96-9.15); NEUTROPHILS PERCENT AUTO 62 % (41-73); Platelet Count 389 K/mm3 (150-400); RDW Coefficient Variation 15.7 % (11.7-14.2); RDW Standard Deviation 50.7 fL (35.1-46.3); Red Blood Cell Count 3.11 M/mm3 (4.30-5.90); White Blood Cell Count 9.34 K/mm3 (4.00-11.30)
[2024-03-10 06:33] LABS: Albumin, Blood 2.4 g/dL (3.4-5.0); Albumin/Globulin Ratio 0.5 (0.8-1.8); Bilirubin, Total 0.3 mg/dL (0.1-1.0); Bun/Creatinine Ratio 23.4 (12.0-20.0); Calcium, Blood 9.2 mg/dL (8.5-10.1); Creatinine, Blood 2.99 mg/dL (0.60-1.20); Globulin, Blood 4.5 g/dL (2.2-4.0); Phosphorus, Blood 3.8 mg/dL (2.5-4.9); Potassium, Blood 5.1 mmol/L (3.5-5.5); Total Protein, Blood 6.9 g/dL (6.4-8.2)
[2024-03-10 06:52] LABS: BAND PERCENT MAN 1 % (0-8); BASOPHILS PERCENT MAN 0 % (0-2); EOSINOPHILS ABSOLUTE MAN 0.46 K/mm3 (0.00-0.68); EOSINOPHILS PERCENT MAN 5 % (0-6); LYMPHOCYTES ABSOLUTE MAN 1.49 K/mm3 (0.84-5.20); LYMPHOCYTES PERCENT MAN 16 % (21-46); MONOCYTES ABSOLUTE MAN 0.46 K/mm3 (0.16-1.47); MONOCYTES PERCENT MAN 5 % (4-13); NEUTROPHILS ABSOLUTE MAN 6.91 K/mm3 (1.96-9.15); SEG NEUTROPHILS PERCENT MAN 73 % (41-73); TOTAL CELLS COUNTED 100
[2024-03-10 07:55] VITALS: BP 133/66
[2024-03-10 15:50] VITALS: BP 143/74
--- NOTE | 2024-03-10 17:40 | NUR ---
Pt. is awake in bed and welcomes my visit. Pt. is pleasant and is very familiar to this tongue binder over his extended hospitalization. Facilitated an update, and Pt. verbalized an expectation that he would be having a procedure tomorrow that would seek to address the soource of his blood infection. Listen with interest and empathy. Pt. verbalized concerns about adjusting to new routines to address his health. Personal stories are shared. Pt. displayed evidence of understanding and agreement with the idea that he can make some changes in his routine. We prayed together. Pt. verbalized gratitude for the spiritual care visit. Will remain available to the Pt. and his family.
--- NOTE | 2024-03-10 19:32 | NUR ---
VSS, A-Ox4, denies SOB, states 6 out of 10 pain that was well managed with prn norco, ambulates independently, on RA. Lungs clear, heart regular, bowel sounds normative, R should, and back dressing changed, shingles dry and intact, new dressing C/D/I, R chest dressing changed new dressing C/D/I. Pt can make needs known, call taveras in hand, bed in lowest position.
[2024-03-10 20:33] VITALS: BP 141/61
[2024-03-10] MEDS ORDERED: Lactobacil 2-S.Thermo-Bifido 1 1 Cap PO SCH (21:00)
[2024-03-11] VITALS (9 sets, daily range): BP systolic 122–155; BP diastolic 61–93
--- NOTE | 2024-03-11 04:35 | NUR ---
PT RESTING QUIETLY THROUGH THE NIGHT. MEDICATED X1 FOR C/O PAIN. NO DISTRESS NOTED.
[2024-03-11 05:12] LABS: BASOPHILS ABSOLUTE AUTO 0.08 K/mm3 (0.00-0.23); BASOPHILS PERCENT AUTO 1 % (0-2); EOSINOPHILS ABSOLUTE AUTO 0.39 K/mm3 (0.00-0.68); EOSINOPHILS PERCENT AUTO 4 % (0-6); Hematocrit 27.5 % (37.0-53.0); Hemoglobin 8.8 g/dL (13.5-17.5); IMMATURE GRAN PERCENT AUTO 7 % (0-1); LYMPHOCYTES ABSOLUTE AUTO 2.34 K/mm3 (0.84-5.20); LYMPHOCYTES PERCENT AUTO 22 % (21-46); MONOCYTES ABSOLUTE AUTO 0.82 K/mm3 (0.16-1.47); MONOCYTES PERCENT AUTO 8 % (4-13); Mean Corpuscular HGB 28.8 pg (26.0-34.0); Mean Corpuscular Volume 90 fL (80-100); Mean Platelet Volume 9.8 fL (9.1-12.4); NEUTROPHILS ABSOLUTE AUTO 6.32 K/mm3 (1.96-9.15); NEUTROPHILS PERCENT AUTO 59 % (41-73); Platelet Count 425 K/mm3 (150-400); RDW Coefficient Variation 15.9 % (11.7-14.2); RDW Standard Deviation 51.7 fL (35.1-46.3); Red Blood Cell Count 3.06 M/mm3 (4.30-5.90); White Blood Cell Count 10.65 K/mm3 (4.00-11.30)
[2024-03-11 05:32] LABS: Albumin, Blood 2.4 g/dL (3.4-5.0); Albumin/Globulin Ratio 0.5 (0.8-1.8); Bilirubin, Total 0.2 mg/dL (0.1-1.0); Creatinine, Blood 2.96 mg/dL (0.60-1.20); Globulin, Blood 4.7 g/dL (2.2-4.0); Potassium, Blood 5.5 mmol/L (3.5-5.5); Total Protein, Blood 7.1 g/dL (6.4-8.2)
[2024-03-11] MEDS ORDERED: NS 1,000 ML IV ONE (09:40)
[2024-03-11] MEDS ORDERED: Benzocaine Oral Spray 0.5ML UD ONE (09:42)
--- NOTE | 2024-03-11 10:25 | NUR ---
ASSUMED CARE FROM ANESTHESIA. PT AWAKE AND VERBALIZED WELL. PT TOLERATED PROCEDURE WELL.
--- NOTE | 2024-03-11 10:34 | NUR ---
PT A/OX3 AND VERABLIZING WELL. PT UP IN RM /S OUT DIFFICULTY. REPORT GIVEN TO MEDICAL FLOOR RN. PT WILL BE TRANSFERED BACK TO RM 332 VIA W/C.
--- NOTE | 2024-03-11 19:47 | NUR ---
VSS, A-Ox4, denies SOB, states 8 out 10 that was well managed with prn Roosevelt, ambulates independently, on RA. Lung clear, heart regular, bowel sounds normative, states small BM today, had FERMIN done today, changed from airborn to Contact precaution per MD due to shingle be dry and crusted. Pt possibly D/C tommorrow, can make needs known, call taveras in hand, bed in lowest position.
[2024-03-12 02:22] VITALS: BP 161/77
[2024-03-12] MEDS ORDERED: CeFAZolin Sodium 1,000 MG in NS 50 ML IV ONE ×2 (02:30→15:30)
[2024-03-12 05:55] LABS: BASOPHILS ABSOLUTE AUTO 0.05 K/mm3 (0.00-0.23); BASOPHILS PERCENT AUTO 1 % (0-2); EOSINOPHILS ABSOLUTE AUTO 0.33 K/mm3 (0.00-0.68); EOSINOPHILS PERCENT AUTO 3 % (0-6); Hematocrit 27.8 % (37.0-53.0); Hemoglobin 8.8 g/dL (13.5-17.5); IMMATURE GRAN ABSOLUTE AUTO 0.36 K/mm3 (0.00-0.10); IMMATURE GRAN PERCENT AUTO 3 % (0-1); LYMPHOCYTES ABSOLUTE AUTO 1.69 K/mm3 (0.84-5.20); LYMPHOCYTES PERCENT AUTO 16 % (21-46); MONOCYTES ABSOLUTE AUTO 0.67 K/mm3 (0.16-1.47); MONOCYTES PERCENT AUTO 6 % (4-13); Mean Corpuscular HGB 28.4 pg (26.0-34.0); Mean Corpuscular HGB Conc 31.7 g/dL (31.5-36.5); Mean Corpuscular Volume 90 fL (80-100); Mean Platelet Volume 9.4 fL (9.1-12.4); NEUTROPHILS ABSOLUTE AUTO 7.51 K/mm3 (1.96-9.15); NEUTROPHILS PERCENT AUTO 71 % (41-73); Platelet Count 436 K/mm3 (150-400); RDW Coefficient Variation 16.2 % (11.7-14.2); RDW Standard Deviation 51.6 fL (35.1-46.3); White Blood Cell Count 10.61 K/mm3 (4.00-11.30)
[2024-03-12 06:33] LABS: Albumin, Blood 2.5 g/dL (3.4-5.0); Albumin/Globulin Ratio 0.5 (0.8-1.8); Bilirubin, Total 0.2 mg/dL (0.1-1.0); Bun/Creatinine Ratio 23.8 (12.0-20.0); Calcium, Blood 9.2 mg/dL (8.5-10.1); Creatinine, Blood 2.81 mg/dL (0.60-1.20); Globulin, Blood 4.6 g/dL (2.2-4.0); Phosphorus, Blood 4.2 mg/dL (2.5-4.9); Potassium, Blood 5.6 mmol/L (3.5-5.5); Total Protein, Blood 7.1 g/dL (6.4-8.2)
[2024-03-12 07:38] VITALS: BP 155/72
[2024-03-12] MEDS ORDERED: Sodium Bicarb 8.4% Inj 150 MEQ in Dextrose 5% 1,000 ML IV SCH (08:00)
[2024-03-12] MEDS ORDERED: Fludrocortisone Acetate 0.1 MG Tab PO SCH (09:00)
[2024-03-12 15:07] VITALS: BP 143/68
[2024-03-12] MEDS ORDERED: VITAMIN C125 MG PO (16:14)
[2024-03-12] MEDS ORDERED: CEFAZOLIN SODIUM1 G1 IV (16:15)
[2024-03-12] MEDS ORDERED: FLUDROCORTISON0.1 M1 PO (16:16)
[2024-03-12] MEDS ORDERED: FERSU300 PO (16:16)
[2024-03-12] MEDS ORDERED: VISBIOME 112.51 EACH PO (16:17)
[2024-03-12] MEDS ORDERED: METO50ER PO (16:17)
[2024-03-12] MEDS ORDERED: VALA500 PO (16:18)
--- NOTE | 2024-03-12 17:16 | NUR ---
DISCHARGE: PT D/C @1648 INDEPENDENTLY WITH . SULEMAS FAXED TO [facility]. TELE SENT BACK. INFUSION SET UP @ 0730 AND 1600 TOMORROW. ANX INFUSED PRIOR TO D/C. PHARMACIST WENT OVER MEDICATIONS IN DEPTH WITH PT PRIOR TO D/C.
[2024-03-12] MEDS ORDERED: Etomidate 2MG / ML 10ML Vial IV ONE (17:31)
[2024-03-12] MEDS ORDERED: Lidocaine HCl 1% 5 ML SYR INFIL ONE (17:31)
[2024-03-12] MEDS ORDERED: Propofol 10mg/ml 20 ml Vial (Procedural) IV ONE (17:31)
== END 2024-03-12 16:48 | disposition home or self-care (01) | DRG 314 ==
LOC: ER 13:40 → MEDS 19:32 → EOR 19:32 → MEDS 22:31
PROVIDERS: Emergency Medicine; Family Medicine; Internal Medicine Endocrinology, Diabetes & Metabolism; Nurse Practitioner Acute Care; Student in an Organized Health Care Education/Training Program; ADMIT Internal Medicine
DX: T82.7XXA Infection and inflammatory reaction due to other cardiac and vascular devices, implants and grafts, initial encounter (principal); A41.01 Sepsis due to Methicillin susceptible Staphylococcus aureus; I33.0 Acute and subacute infective endocarditis; N18.6 End stage renal disease; N17.9 Acute kidney failure, unspecified; I25.810 Atherosclerosis of coronary artery bypass graft(s) without angina pectoris; I50.22 Chronic systolic (congestive) heart failure; F32.A Depression, unspecified; E11.22 Type 2 diabetes mellitus with diabetic chronic kidney disease; D63.1 Anemia in chronic kidney disease; D50.9 Iron deficiency anemia, unspecified; I48.0 Paroxysmal atrial fibrillation; I25.5 Ischemic cardiomyopathy; E78.5 Hyperlipidemia, unspecified; E87.5 Hyperkalemia; B02.9 Zoster without complications; H92.09 Otalgia, unspecified ear; Y83.8 Other surgical procedures as the cause of abnormal reaction of the patient, or of later complication, without mention of misadventure at the time of the procedure; Z79.4 Long term (current) use of insulin; Z99.2 Dependence on renal dialysis; Z86.73 Personal history of transient ischemic attack (TIA), and cerebral infarction without residual deficits; Z95.1 Presence of aortocoronary bypass graft; Z88.8 Allergy status to other drugs, medicaments and biological substances; Z88.1 Allergy status to other antibiotic agents; Z79.01 Long term (current) use of anticoagulants; Z79.899 Other long term (current) drug therapy; Z87.891 Personal history of nicotine dependence
CPT/HCPCS: 0241U; 36415; 36569; 70486; 71045; 80048; 80053; 80069; 80202; 81001; 82947; 83605; 83735; 84100; 84145; 84484; 85025; 87040; 87070; 87077; 87147; 87186; 87205; 93005; 93010; 93308; 93312; 93321; 93325; 94760; 96365; 96375; 97116; 97162; 97530; 99284-25; A9270; C1751; J0690; J0692; J0696; J1644; J1815; J2405; J2470; J2704; J3370; J7030; J7050; J7070; Q5106

== ENCOUNTER 2024-03-13 02:34 | Day surgery (SDC) | payer OTHER ==
[~2024-03-13 02:34] MED LIST changes: +CEFAZOLIN SODIUM1 G1 IV; +DUPIXENT P300 MG/2 M SC; +FERSU300 PO; +FLUDROCORTISON0.1 M1 PO; +METO50ER PO; +MIRALAX17 GM PO; +MULVITA PO; +NITR.4SL; +PROCRIT4000 UNIT/ SC; +TOUJEO SOL300 UNIT/2 SC; +VALA500 PO; +VISBIOME 112.51 EACH PO; +VITAMIN C125 MG PO
[2024-03-13] MEDS ORDERED: CeFAZolin Sodium 1,000 MG in NS 50 ML IV SCH (06:00)
[2024-03-13 08:16] VITALS: BP 133/65
[2024-03-13 16:25] VITALS: BP 132/70
== END 2024-03-13 16:47 | disposition home or self-care (01) ==
LOC: ATC 02:34
DX: A49.01 Methicillin susceptible Staphylococcus aureus infection, unspecified site (principal); I13.2 Hypertensive heart and chronic kidney disease with heart failure and with stage 5 chronic kidney disease, or end stage renal disease; E11.22 Type 2 diabetes mellitus with diabetic chronic kidney disease; N18.6 End stage renal disease; I50.20 Unspecified systolic (congestive) heart failure; E78.5 Hyperlipidemia, unspecified; I48.0 Paroxysmal atrial fibrillation; I25.10 Atherosclerotic heart disease of native coronary artery without angina pectoris; Z95.1 Presence of aortocoronary bypass graft; Z79.01 Long term (current) use of anticoagulants; Z88.1 Allergy status to other antibiotic agents; Z88.8 Allergy status to other drugs, medicaments and biological substances
CPT/HCPCS: 96365; J0690

== ENCOUNTER 2024-03-19 01:20 | Day surgery (SDC) | payer OTHER ==
[2024-03-19] MEDS ORDERED: CeFAZolin Sodium 1,000 MG in NS 50 ML IV SCH (06:00)
[2024-03-19 07:35] VITALS: BP 130/69
[2024-03-19 16:08] VITALS: BP 139/56
--- NOTE | 2024-03-24 15:33 | NUR ---
END TIME FOR 1600 DOSE WAS [id number]
== END 2024-03-19 16:28 | disposition home or self-care (01) ==
LOC: ATC 01:20
DX: I13.2 Hypertensive heart and chronic kidney disease with heart failure and with stage 5 chronic kidney disease, or end stage renal disease (principal); B95.61 Methicillin susceptible Staphylococcus aureus infection as the cause of diseases classified elsewhere; E78.5 Hyperlipidemia, unspecified; I50.20 Unspecified systolic (congestive) heart failure; N18.6 End stage renal disease; E11.22 Type 2 diabetes mellitus with diabetic chronic kidney disease; I25.10 Atherosclerotic heart disease of native coronary artery without angina pectoris; I48.0 Paroxysmal atrial fibrillation; Z79.01 Long term (current) use of anticoagulants; Z86.73 Personal history of transient ischemic attack (TIA), and cerebral infarction without residual deficits; Z88.8 Allergy status to other drugs, medicaments and biological substances; Z95.1 Presence of aortocoronary bypass graft; Z99.2 Dependence on renal dialysis
CPT/HCPCS: 96365; J0690

== ENCOUNTER 2024-03-22 02:59 | Day surgery (SDC) | payer OTHER ==
[2024-03-22] MEDS ORDERED: CeFAZolin Sodium 1,000 MG in NS 50 ML IV SCH (06:00)
[2024-03-22 07:20] VITALS: BP 144/72
[2024-03-22 16:11] VITALS: BP 159/75
== END 2024-03-22 16:33 | disposition home or self-care (01) ==
LOC: ATC 02:59
DX: A49.01 Methicillin susceptible Staphylococcus aureus infection, unspecified site (principal); I13.2 Hypertensive heart and chronic kidney disease with heart failure and with stage 5 chronic kidney disease, or end stage renal disease; E11.22 Type 2 diabetes mellitus with diabetic chronic kidney disease; N18.6 End stage renal disease; I50.20 Unspecified systolic (congestive) heart failure; I25.10 Atherosclerotic heart disease of native coronary artery without angina pectoris; E78.5 Hyperlipidemia, unspecified; I48.0 Paroxysmal atrial fibrillation; Z88.1 Allergy status to other antibiotic agents; Z88.8 Allergy status to other drugs, medicaments and biological substances; Z79.01 Long term (current) use of anticoagulants; Z79.899 Other long term (current) drug therapy
CPT/HCPCS: 96365; J0690

== ENCOUNTER 2024-03-23 03:13 | Day surgery (SDC) | payer OTHER ==
[2024-03-23] MEDS ORDERED: CeFAZolin Sodium 1,000 MG in NS 50 ML IV SCH (06:00)
[2024-03-23 07:25] VITALS: BP 137/71
== END 2024-03-23 16:57 | disposition home or self-care (01) ==
LOC: ATC 03:13
DX: B95.61 Methicillin susceptible Staphylococcus aureus infection as the cause of diseases classified elsewhere (principal); I48.0 Paroxysmal atrial fibrillation; E78.5 Hyperlipidemia, unspecified; E11.22 Type 2 diabetes mellitus with diabetic chronic kidney disease; I13.2 Hypertensive heart and chronic kidney disease with heart failure and with stage 5 chronic kidney disease, or end stage renal disease; I50.20 Unspecified systolic (congestive) heart failure; N18.6 End stage renal disease; Z88.8 Allergy status to other drugs, medicaments and biological substances; Z99.2 Dependence on renal dialysis
CPT/HCPCS: 96365; J0690

== ENCOUNTER 2024-03-24 01:34 | Day surgery (SDC) | payer OTHER ==
[2024-03-24] MEDS ORDERED: CeFAZolin Sodium 1,000 MG in NS 50 ML IV SCH (06:00)
[2024-03-24 07:21] VITALS: BP 100/61
[2024-03-24 16:30] VITALS: BP 137/67
== END 2024-03-24 16:50 | disposition home or self-care (01) ==
LOC: ATC 01:34
DX: R78.81 Bacteremia (principal); B95.61 Methicillin susceptible Staphylococcus aureus infection as the cause of diseases classified elsewhere
CPT/HCPCS: 96365; J0690

== ENCOUNTER 2024-03-25 02:40 | Day surgery (SDC) | payer OTHER ==
[2024-03-25] MEDS ORDERED: CeFAZolin Sodium 1,000 MG in NS 50 ML IV SCH (06:00)
[2024-03-25 07:42] VITALS: BP 123/65
[2024-03-25 16:21] VITALS: BP 140/66
== END 2024-03-25 16:34 | disposition home or self-care (01) ==
LOC: ATC 02:40
DX: A49.01 Methicillin susceptible Staphylococcus aureus infection, unspecified site (principal); I13.2 Hypertensive heart and chronic kidney disease with heart failure and with stage 5 chronic kidney disease, or end stage renal disease; E11.22 Type 2 diabetes mellitus with diabetic chronic kidney disease; N18.6 End stage renal disease; I50.20 Unspecified systolic (congestive) heart failure; I25.10 Atherosclerotic heart disease of native coronary artery without angina pectoris; I48.0 Paroxysmal atrial fibrillation; E78.5 Hyperlipidemia, unspecified
CPT/HCPCS: 96365; J0690

== ENCOUNTER 2024-03-26 04:32 | Day surgery (SDC) | payer OTHER ==
[2024-03-26] MEDS ORDERED: CeFAZolin Sodium 1,000 MG in NS 50 ML IV SCH (06:00)
[2024-03-26 07:42] VITALS: BP 138/79
[2024-03-26 17:14] LABS: BASOPHILS ABSOLUTE AUTO 0.07 K/mm3 (0.00-0.23); BASOPHILS PERCENT AUTO 1 % (0-2); EOSINOPHILS ABSOLUTE AUTO 0.31 K/mm3 (0.00-0.68); EOSINOPHILS PERCENT AUTO 4 % (0-6); Hematocrit 28.1 % (37.0-53.0); IMMATURE GRAN ABSOLUTE AUTO 0.02 K/mm3 (0.00-0.10); IMMATURE GRAN PERCENT AUTO 0 % (0-1); LYMPHOCYTES ABSOLUTE AUTO 1.03 K/mm3 (0.84-5.20); LYMPHOCYTES PERCENT AUTO 14 % (21-46); MONOCYTES ABSOLUTE AUTO 0.67 K/mm3 (0.16-1.47); MONOCYTES PERCENT AUTO 9 % (4-13); Mean Corpuscular HGB 31.4 pg (26.0-34.0); Mean Corpuscular Volume 98 fL (80-100); Mean Platelet Volume 9.7 fL (9.1-12.4); NEUTROPHILS ABSOLUTE AUTO 5.27 K/mm3 (1.96-9.15); NEUTROPHILS PERCENT AUTO 72 % (41-73); Platelet Count 274 K/mm3 (150-400); RDW Coefficient Variation 21.2 % (11.7-14.2); Red Blood Cell Count 2.87 M/mm3 (4.30-5.90); White Blood Cell Count 7.37 K/mm3 (4.00-11.30)
[2024-03-26 17:38] LABS: Albumin/Globulin Ratio 0.7 (0.8-1.8); Bilirubin, Total 0.3 mg/dL (0.1-1.0); Bun/Creatinine Ratio 22.3 (12.0-20.0); Calcium, Blood 8.4 mg/dL (8.5-10.1); Creatinine, Blood 2.24 mg/dL (0.60-1.20); Globulin, Blood 4.2 g/dL (2.2-4.0); Potassium, Blood 4.6 mmol/L (3.5-5.5); Total Protein, Blood 7.2 g/dL (6.4-8.2)
== END 2024-03-26 16:56 | disposition home or self-care (01) ==
LOC: ATC 04:32
PROVIDERS: Family Medicine
DX: R78.81 Bacteremia (principal); B95.61 Methicillin susceptible Staphylococcus aureus infection as the cause of diseases classified elsewhere
CPT/HCPCS: 80053; 85025; 96365; J0690

== ENCOUNTER 2024-03-27 01:55 | Day surgery (SDC) | payer OTHER ==
[2024-03-27] MEDS ORDERED: CeFAZolin Sodium 1,000 MG in NS 50 ML IV SCH (06:00)
[2024-03-27 07:14] VITALS: BP 146/72
[2024-03-27 16:12] VITALS: BP 162/75
== END 2024-03-27 16:36 | disposition home or self-care (01) ==
LOC: ATC 01:55
DX: D72.829 Elevated white blood cell count, unspecified (principal); B95.61 Methicillin susceptible Staphylococcus aureus infection as the cause of diseases classified elsewhere; R65.10 Systemic inflammatory response syndrome (SIRS) of non-infectious origin without acute organ dysfunction; Z88.8 Allergy status to other drugs, medicaments and biological substances
CPT/HCPCS: 96365; J0690

== ENCOUNTER 2024-03-28 07:04 | Day surgery (SDC) | payer OTHER ==
[~2024-03-28 07:04] MED LIST changes: +CeFAZolin Sodium 1,000 MG in NS 50 ML IV SCH
[2024-03-28 07:23] VITALS: BP 124/67
== END 2024-03-28 16:42 | disposition home or self-care (01) ==
LOC: ATC 07:04
DX: R78.81 Bacteremia (principal); B95.61 Methicillin susceptible Staphylococcus aureus infection as the cause of diseases classified elsewhere
CPT/HCPCS: 96365; J0690

== ENCOUNTER 2024-03-29 04:11 | Day surgery (SDC) | payer OTHER ==
[~2024-03-29 04:11] MED LIST changes: -CeFAZolin Sodium 1,000 MG in NS 50 ML IV SCH
[2024-03-29] MEDS ORDERED: CeFAZolin Sodium 1,000 MG in NS 50 ML IV SCH (06:00)
[2024-03-29 07:29] VITALS: BP 126/58
[2024-03-29 16:19] VITALS: BP 138/68
== END 2024-03-29 16:39 | disposition home or self-care (01) ==
LOC: ATC 04:11
DX: A49.02 Methicillin resistant Staphylococcus aureus infection, unspecified site (principal); B95.61 Methicillin susceptible Staphylococcus aureus infection as the cause of diseases classified elsewhere; I13.2 Hypertensive heart and chronic kidney disease with heart failure and with stage 5 chronic kidney disease, or end stage renal disease; I50.20 Unspecified systolic (congestive) heart failure; N18.6 End stage renal disease; E11.22 Type 2 diabetes mellitus with diabetic chronic kidney disease; E78.5 Hyperlipidemia, unspecified; I48.0 Paroxysmal atrial fibrillation; I25.10 Atherosclerotic heart disease of native coronary artery without angina pectoris
CPT/HCPCS: 96365; J0690

== ENCOUNTER 2024-04-01 02:48 | Day surgery (SDC) | payer OTHER ==
[2024-04-01] MEDS ORDERED: CeFAZolin Sodium 1,000 MG in NS 50 ML IV SCH (06:00)
[2024-04-01 07:20] VITALS: BP 131/71
[2024-04-01 16:18] VITALS: BP 147/79
== END 2024-04-01 16:41 | disposition home or self-care (01) ==
LOC: ATC 02:48
DX: A49.01 Methicillin susceptible Staphylococcus aureus infection, unspecified site (principal); I13.2 Hypertensive heart and chronic kidney disease with heart failure and with stage 5 chronic kidney disease, or end stage renal disease; N18.6 End stage renal disease; E11.22 Type 2 diabetes mellitus with diabetic chronic kidney disease; I50.20 Unspecified systolic (congestive) heart failure; Z99.2 Dependence on renal dialysis; E78.5 Hyperlipidemia, unspecified; I25.10 Atherosclerotic heart disease of native coronary artery without angina pectoris; I48.0 Paroxysmal atrial fibrillation; Z88.1 Allergy status to other antibiotic agents; Z79.01 Long term (current) use of anticoagulants; Z79.899 Other long term (current) drug therapy
CPT/HCPCS: 96365; J0690

== ENCOUNTER 2024-04-02 01:23 | Day surgery (SDC) | payer OTHER ==
[2024-04-02] MEDS ORDERED: CeFAZolin Sodium 1,000 MG in NS 50 ML IV SCH (06:00)
[2024-04-02 07:20] VITALS: BP 135/86
[2024-04-02 16:17] VITALS: BP 134/103
== END 2024-04-02 16:32 | disposition home or self-care (01) ==
LOC: ATC 01:23
DX: I13.2 Hypertensive heart and chronic kidney disease with heart failure and with stage 5 chronic kidney disease, or end stage renal disease (principal); B95.61 Methicillin susceptible Staphylococcus aureus infection as the cause of diseases classified elsewhere; R65.10 Systemic inflammatory response syndrome (SIRS) of non-infectious origin without acute organ dysfunction; E11.22 Type 2 diabetes mellitus with diabetic chronic kidney disease; N18.6 End stage renal disease; I25.10 Atherosclerotic heart disease of native coronary artery without angina pectoris; E78.5 Hyperlipidemia, unspecified; I48.0 Paroxysmal atrial fibrillation; Z86.73 Personal history of transient ischemic attack (TIA), and cerebral infarction without residual deficits; Z88.6 Allergy status to analgesic agent; Z88.1 Allergy status to other antibiotic agents; Z88.8 Allergy status to other drugs, medicaments and biological substances
CPT/HCPCS: 96365; J0690

== ENCOUNTER 2024-04-03 02:02 | Day surgery (SDC) | payer OTHER ==
[2024-04-03] MEDS ORDERED: CeFAZolin Sodium 1,000 MG in NS 50 ML IV SCH (07:00)
[2024-04-03 07:19] VITALS: BP 125/66
== END 2024-04-03 16:29 | disposition home or self-care (01) ==
LOC: ATC 02:02
DX: R78.81 Bacteremia (principal); B95.61 Methicillin susceptible Staphylococcus aureus infection as the cause of diseases classified elsewhere
CPT/HCPCS: 96365; J0690

== ENCOUNTER 2024-04-04 07:05 | Day surgery (SDC) | payer OTHER ==
[~2024-04-04 07:05] MED LIST changes: +CeFAZolin Sodium 1,000 MG in NS 50 ML IV SCH
[2024-04-04 07:12] VITALS: BP 141/78
[2024-04-04 16:15] VITALS: BP 151/85
== END 2024-04-04 16:38 | disposition home or self-care (01) ==
LOC: ATC 07:05
DX: A49.01 Methicillin susceptible Staphylococcus aureus infection, unspecified site (principal); I13.2 Hypertensive heart and chronic kidney disease with heart failure and with stage 5 chronic kidney disease, or end stage renal disease; E11.22 Type 2 diabetes mellitus with diabetic chronic kidney disease; N18.6 End stage renal disease; I50.20 Unspecified systolic (congestive) heart failure; I25.10 Atherosclerotic heart disease of native coronary artery without angina pectoris; E78.5 Hyperlipidemia, unspecified; I48.0 Paroxysmal atrial fibrillation; Z88.1 Allergy status to other antibiotic agents; Z88.8 Allergy status to other drugs, medicaments and biological substances; Z79.01 Long term (current) use of anticoagulants; Z79.899 Other long term (current) drug therapy
CPT/HCPCS: 96365; J0690

== ENCOUNTER 2024-08-31 09:28 | Inpatient (IN) | payer OTHER ==
[~2024-08-31] VITALS: Ht 172.7 cm; Wt 62.7 kg
[~2024-08-31 09:28] MED LIST changes: -CeFAZolin Sodium 1,000 MG in NS 50 ML IV SCH
[2024-08-31] MEDS ORDERED: ISOSORBIDE MONO60 MG PO (09:57)
[2024-08-31] MEDS ORDERED: OMEGA-3 + VITA1 EAC2 (09:59)
[2024-08-31] MEDS ORDERED: Ondansetron HCl 2 MG / ML 2ML Vial IV ONE ×2 (10:00→12:50)
[2024-08-31 10:15] LABS: BASOPHILS ABSOLUTE AUTO 0.04 K/mm3 (0.00-0.23); BASOPHILS PERCENT AUTO 0 % (0-2); EOSINOPHILS ABSOLUTE AUTO 0.01 K/mm3 (0.00-0.68); EOSINOPHILS PERCENT AUTO 0 % (0-6); Hematocrit 31.8 % (37.0-53.0); Hemoglobin 10.1 g/dL (13.5-17.5); IMMATURE GRAN ABSOLUTE AUTO 0.17 K/mm3 (0.00-0.10); IMMATURE GRAN PERCENT AUTO 1 % (0-1); LYMPHOCYTES ABSOLUTE AUTO 2.67 K/mm3 (0.84-5.20); LYMPHOCYTES PERCENT AUTO 20 % (21-46); MONOCYTES ABSOLUTE AUTO 1.01 K/mm3 (0.16-1.47); MONOCYTES PERCENT AUTO 8 % (4-13); Mean Corpuscular HGB 28.6 pg (26.0-34.0); Mean Corpuscular HGB Conc 31.8 g/dL (31.5-36.5); Mean Corpuscular Volume 90 fL (80-100); Mean Platelet Volume 9.4 fL (9.1-12.4); NEUTROPHILS ABSOLUTE AUTO 9.28 K/mm3 (1.96-9.15); NEUTROPHILS PERCENT AUTO 70 % (41-73); NRBC ABSOLUTE 0.02 K/mm3 (0.00-0.02); NRBC Auto 0.2 /100 WBC (0.0-0.2); Platelet Count 392 K/mm3 (150-400); RDW Coefficient Variation 16.7 % (11.7-14.2); RDW Standard Deviation 53.7 fL (35.1-46.3); Red Blood Cell Count 3.53 M/mm3 (4.30-5.90); White Blood Cell Count 13.18 K/mm3 (4.00-11.30)
[2024-08-31] MEDS ORDERED: FentaNYL Citrate 50 MCG/ML 2 ML Injection IV ONE ×2 (10:25→12:35)
[2024-08-31 11:36] LABS: Albumin, Blood 3.3 g/dL (3.4-5.0); Albumin/Globulin Ratio 0.6 (0.8-1.8); Bilirubin, Total 0.9 mg/dL (0.1-1.0); Bun/Creatinine Ratio 21.4 (12.0-20.0); Calcium, Blood 9.7 mg/dL (8.5-10.1); Creatinine, Blood 3.46 mg/dL (0.60-1.20); Globulin, Blood 5.4 g/dL (2.2-4.0); Potassium, Blood 5.3 mmol/L (3.5-5.5); Total Protein, Blood 8.7 g/dL (6.4-8.2)
[2024-08-31 12:23] LABS: CORONAVIRUS COVID-19 AG Negative (NEGATIVE); INFLUENZA A AG Negative (NEGATIVE); INFLUENZA B AG Negative (NEGATIVE)
[2024-08-31] MEDS ORDERED: CefTRIAXone Sodium 1,000 MG in NS 100 ML IV ONE (13:25)
[2024-08-31] MEDS ORDERED: Ondansetron HCl 2 MG / ML 2ML Vial IV PRN (14:10)
[2024-08-31] MEDS ORDERED: FLU VACC TS2024-25(6MOS UP)/PF 45 MCG/0.5 ML SYRINGE IM SCH (14:10)
[2024-08-31 14:38] LABS: International Normalized Ratio 1.63; Prothrombin Time Results 16.8 Sec (9.7-11.5)
[2024-08-31 15:16] LABS: Influenza A, PCR NEGATIVE (NEGATIVE); Influenza B, PCR NEGATIVE (NEGATIVE); Resp Syncytial Virus, PCR NEGATIVE (NEGATIVE); SARS-Cov-2 (COVID-19) PCR, MMC NEGATIVE (NEGATIVE)
[2024-08-31] MEDS ORDERED: NS 1,000 ML IV SCH ×2 (15:30→17:30)
[2024-08-31] MEDS ORDERED: Azithromycin 500 MG in NS 250 ML IV SCH (15:33)
[2024-08-31] MEDS ORDERED: NS 1,000 ML IV ONE (15:35)
[2024-08-31] MEDS ORDERED: Insulin Regular 100 UNIT/ML 10ML Vial SC SCH (16:30)
[2024-08-31 16:42] VITALS: BP 147/114
[2024-08-31] MEDS ORDERED: Aspirin 325 MG Tab PO ONE (16:45)
[2024-08-31] MEDS ORDERED: Calcitriol 0.25 MCG Cap PO SCH (17:00)
[2024-08-31] MEDS ORDERED: FentaNYL Citrate 50 MCG/ML 2 ML Injection IV PRN (17:00)
[2024-08-31 17:25] VITALS: BP 131/67
[2024-08-31] MEDS ORDERED: [UNRECOGNIZED DRUG - OTHER] SC (18:16)
[2024-08-31 18:34] VITALS: BP 92/62
[2024-08-31] MEDS ORDERED: METO25ER PO (18:45)
[2024-08-31] MEDS ORDERED: NITR.4SL SL (18:46)
[2024-08-31] MEDS ORDERED: Triamcinolone A15 G3 (18:46)
[2024-08-31] MEDS ORDERED: MULVITA PO (18:47)
[2024-08-31] MEDS ORDERED: ATOR40TA PO (18:47)
[2024-08-31 19:01] LABS: Anti-Xa UFH, PHA Monitoring 0.64 IU/mL
--- NOTE | 2024-08-31 19:01 | NUR ---
ARRIVAL TO PCU 17 PT ARRIVED TO PCU 17 AT APPROXIMATELY 1630, PT TRANSFERED FROM ER [facility] TO HOSPITAL BED WITH 1 ASSIST. PT A&Ox4, CALLS AND COMMUNICATES NEEDS APPROPRIATELY, ORIENTED TO CALL LIGHT/UNIT. BP STABLE, SINUS 80's REPORTS MILD INTERMITTENT CHEST/RIB/ABD PAIN. SpO2> 92% RA, REPORTS INTERMITTENT SOB. MANAGING PTs PAIN PER EMAR. PT AMBULATED TO BATHROOM WITH SBA, STARTED FEELING LIGHTHEADED AND NAUSEOUS. BACK TO BED WITH 1-2 ASSIST, BP SLIGHTLY LOWER - SEE VS. PT WITH C/O PAIN EVERYWHERE, NAUSEOUS, AND "SOMETHING IS NOT RIGHT" BUT CAN'T BE SPECIFIC. WILL REPORT TO ONCOMING RN.
[2024-08-31] MEDS ORDERED: Heparin Sodium,Porcine/0.5 NS 500 ML IV SCH (19:15)
[2024-08-31] MEDS ORDERED: Heparin Sodium 5000 Units/ML 1ML MDV IV ONE (19:15)
[2024-08-31 20:07] VITALS: BP 99/72
[2024-08-31] MEDS ORDERED: Insulin Glargine-Yfgn 100 Unit/mL 3 ML SYR SC SCH (21:00)
[2024-08-31] MEDS ORDERED: Lactobacil 2-S.Thermo-Bifido 1 1 Cap PO SCH (21:00)
[2024-08-31] MEDS ORDERED: Acetaminophen 325 MG TABLET PO PRN (21:35)
[2024-08-31] MEDS ORDERED: Melatonin 3 MG Tab PO PRN (21:35)
[2024-08-31 22:22] LABS: Base Excess Venous -17.7 mmol/L; Bicarbonate Venous 11.8 mmol/L (24.0-30.0); PCO2 Venous 25.5 mmHg (38-42); pH Blood Venous 7.21 (7.34-7.37)
[2024-08-31 23:15] VITALS: BP 105/67
[2024-09-01] VITALS (18 sets, daily range): BP systolic 56–154; BP diastolic 32–98
[2024-09-01] MEDS ORDERED: Sodium Bicarb 8.4% 1 MEQ/ML 50 ML Vial IV ONE (01:00)
[2024-09-01 03:17] LABS: BASOPHILS ABSOLUTE AUTO 0.03 K/mm3 (0.00-0.23); BASOPHILS PERCENT AUTO 0 % (0-2); EOSINOPHILS PERCENT AUTO 0 % (0-6); Hematocrit 24.8 % (37.0-53.0); Hemoglobin 8.1 g/dL (13.5-17.5); IMMATURE GRAN ABSOLUTE AUTO 0.29 K/mm3 (0.00-0.10); IMMATURE GRAN PERCENT AUTO 2 % (0-1); LYMPHOCYTES ABSOLUTE AUTO 1.78 K/mm3 (0.84-5.20); LYMPHOCYTES PERCENT AUTO 13 % (21-46); MONOCYTES ABSOLUTE AUTO 1.17 K/mm3 (0.16-1.47); MONOCYTES PERCENT AUTO 8 % (4-13); Mean Corpuscular HGB 29.1 pg (26.0-34.0); Mean Corpuscular HGB Conc 32.7 g/dL (31.5-36.5); Mean Corpuscular Volume 89 fL (80-100); Mean Platelet Volume 9.6 fL (9.1-12.4); NEUTROPHILS ABSOLUTE AUTO 10.89 K/mm3 (1.96-9.15); NEUTROPHILS PERCENT AUTO 77 % (41-73); NRBC ABSOLUTE 0.05 K/mm3 (0.00-0.02); NRBC Auto 0.4 /100 WBC (0.0-0.2); Platelet Count 304 K/mm3 (150-400); RDW Coefficient Variation 16.7 % (11.7-14.2); Red Blood Cell Count 2.78 M/mm3 (4.30-5.90); White Blood Cell Count 14.16 K/mm3 (4.00-11.30)
[2024-09-01 03:50] LABS: Albumin, Blood 2.6 g/dL (3.4-5.0); Albumin/Globulin Ratio 0.6 (0.8-1.8); Bilirubin, Total 0.6 mg/dL (0.1-1.0); Bun/Creatinine Ratio 21.8 (12.0-20.0); Calcium, Blood 8.6 mg/dL (8.5-10.1); Creatinine, Blood 3.8 mg/dL (0.60-1.20); Globulin, Blood 4.3 g/dL (2.2-4.0); Potassium, Blood 5.6 mmol/L (3.5-5.5); Total Protein, Blood 6.9 g/dL (6.4-8.2)
[2024-09-01] MEDS ORDERED: Heparin Sodium 5000 Units/ML 1ML MDV IV ONE ×2 (04:25→11:15)
[2024-09-01] MEDS ORDERED: Dose Adjust by Pharmacy XX STA ×2 (04:31→11:12)
[2024-09-01 05:29] LABS: U Amphetamine Screen Not Detected; U Barbituate Screen Not Detected; U Benzodiazapine Screen Not Detected; U Buprenorphine Screen Not Detected; U Cannabinoids Screen DETECTED; U Cocaine Screen Not Detected; U Methadone Screen Not Detected; U Methamphetamine Screen Not Detected; U Opiates Screen Not Detected; U Oxycodone Screen Not Detected; U Phencyclidine Screen Not Detected
--- NOTE | 2024-09-01 06:15 | NUR ---
SHIFT SUMMARY PT A&O X4, OBEYS COMMANDS, MOVING ALL EXTREMITIES WITH PURPOSE/NO DEFICITS OBSERVED/HX CVA, HOLDING APPROPRIATE CONVERSATION, PT SBA/PT EDUCATED TO CALL PRIOR TO AMBULATING. CONTINUOUS SPO2, SPO2 GREATER THAN 90% ON RA, NO SIGNS OF REPERTORY DISTRESS OBSERVED. CONTINOS TELE MONITORING, SINUS 60-80 S, HEART MURMUR HEARD, PT REPORTS GENERALIZED PAIN THAT INCLUDES HIS CHEST BUT IS UNSPECIFIED ABOUT HOW IT HURTS, PULSES PRESENT T/O, BP STABLE WITH MAP GREATER THAN 65. BOWEL TONES PRESENT IN ALL 4Q, PT DENIES FEELINGS OF CONSTIPATION, PT REPORTS FEELINGS OF NAUSEA/NO VOMITING THIS SHIFT, PT REPORTS ABD PAIN THAT IS BURNING , ABD TENDER ON PALPATION. PT USING URINAL AT BEDSIDE, URINE YELLOW IN COLOR. PT REPORTING GENERALIZED ALL OVER PAIN, MEDICATED PER ORDERS. DR. GILLETTE ROUNDED ON PT THIS SHIFT. PT TO ABD CT THIS SHIFT @ APPROX 1140. BED LOWEST POSITION, CALL LIGHT IN REACH, AWAITING TO GIVE REPORT TO ONCOMING RN.
--- NOTE | 2024-09-01 07:40 | NUR ---
AM NOTE PT APPEARS TO BE SLEEPING, WAKES EASILY TO VERBAL STIMULI. ONCE AWAKE PATIENT ALERT, ORIENTED X4; ANXIOUS AT TIMES, COOPERATIVE WITH CARE. PT UP WITH 1 PERSON ASSIST. PT DENIES PAIN, CHEST PAIN/PRESSURE, SOB, NAUSEA, DIZZINESS AND NUMB/TINGLING AT THIS TIME. TELE SINUS 70'S, BP ELEVATED BUT STABLE; NO EDEMA NOTED. SPO2 >90% ON RA, BREATHING EVEN AND UNLABORED, SHALLOW AT TIMES, LS CLEAR. ABD SOFT, NONTENDER, +HYPERACTIVE T/O. OTHER VSS. NO OTHER ACUTE CHANGES NOTED. WILL CONTINUE TO MONITOR.
[2024-09-01] MEDS ORDERED: Omega-3 Acid Ethyl Esters 1,000 MG CAP PO SCH (09:00)
[2024-09-01] MEDS ORDERED: Cholecalciferol 1000 Unit Tablet (=25MCG) PO SCH (09:00)
[2024-09-01] MEDS ORDERED: CefTRIAXone Sodium 1,000 MG in NS 100 ML IV SCH (09:00)
[2024-09-01] MEDS ORDERED: Multivitamins 1 Tab PO SCH (09:00)
[2024-09-01] MEDS ORDERED: Metoprolol Succinate 50 MG TABCR PO SCH (09:00)
[2024-09-01] MEDS ORDERED: Heparin Sodium 5000 Units/ML 1ML MDV SC SCH (09:00)
[2024-09-01] MEDS ORDERED: Isosorbide Mononitrate 60 MG TABCR PO SCH (09:00)
[2024-09-01 10:50] LABS: Bun/Creatinine Ratio 22.8 (12.0-20.0); Calcium, Blood 8.4 mg/dL (8.5-10.1); Creatinine, Blood 3.81 mg/dL (0.60-1.20)
[2024-09-01] MEDS ORDERED: NS 1,000 ML IV SCH (11:05)
[2024-09-01 11:50] LABS: Base Excess Venous -7.4 mmol/L; Bicarbonate Venous 18.3 mmol/L (24.0-30.0); PCO2 Venous 33.4 mmHg (38-42); pH Blood Venous 7.35 (7.34-7.37)
[2024-09-01] MEDS ORDERED: Heparin Sodium 1000 Units/ML 10ML MDV ONE ×3 (11:58→15:52)
[2024-09-01] MEDS ORDERED: NS 1,000 ML IV ONE (11:58)
[2024-09-01] MEDS ORDERED: NS 250 ML IV ONE (11:58)
[2024-09-01] MEDS ORDERED: TraMADol HCl 50 MG Tab PO PRN (12:15)
[2024-09-01] MEDS ORDERED: NS 500 ML IV ONE ×3 (12:16→15:52)
[2024-09-01 13:16] LABS: PCO2 Arterial 26.3 mmHg (35-45); PO2 Arterial 72.2 mmHg (80-100)
[2024-09-01 13:19] LABS: Bicarbonate Venous 18.3 mmol/L (24.0-30.0); PCO2 Venous 35.2 mmHg (38-42); pH Blood Venous 7.34 (7.34-7.37)
[2024-09-01 13:20] LABS: PO2 Venous 20.9 mmHg (38-42)
[2024-09-01] MEDS ORDERED: Ondansetron HCl 2 MG / ML 2ML Vial IV PRN (14:35)
[2024-09-01] MEDS ORDERED: Mag Hydrox/AL Hydrox/Simeth 30 ML UDC PO PRN (15:15)
[2024-09-01] MEDS ORDERED: NS 500 ML IV SCH (15:35)
[2024-09-01] MEDS ORDERED: Dextrose 5% 1,000 ML IV SCH (15:40)
[2024-09-01] MEDS ORDERED: Dextrose 5% 500 ML IV SCH (15:40)
[2024-09-01] MEDS ORDERED: FentaNYL Citrate 50 MCG/ML 2 ML Injection ONE (16:05)
--- NOTE | 2024-09-01 16:06 | NUR ---
Update Pt to laboratory geneticist for [facility] at approx 1210. Pt back for laboratory geneticist at approx 1350; right brachial venous access c/d/i no bruising, bleeding or hematoma note. VSS, bp 140/62, hr 81, spo1 98-100%, at this time pt reporting increased heachache 10/10, medicated with tramadol per orders with no relief noted. At approx 1445 BP trending down, 107/65, pt reports nausea and burning pain to abd, medicated with zofran and fent, with minimal relief. Pt noted to be having bloody nose and blood clot the size of a large grape noted in tissue. BP continues to be trending down. Dr Gotti notified of BP trending, clarification on heparin gtt, and bloody nose. Dr to room while patient noting cought up blood, 1v chest xray order. MAP <65, aware, overall trending down, plans to go back to laboratory geneticist and then to ICU, new orders for Levo, bp 56/44; ICU charge to start levo while waiting for transport to laboratory geneticist at at approx 1532. Patient asked student RN to "If something happens to me, give my a kiss on the forehead and tell her I love her." Pt left for laboratory geneticist at approx 1540. Report given to Marta MCGHEE assuming care of patient in ICU, Brandi, spouse, was updated.
[2024-09-01] MEDS ORDERED: Lidocaine 2% Jelly Uro-Jet UR ONE (18:00)
[2024-09-01] MEDS ORDERED: DOBUtamine 250 MG/D5W 250 ML 250 ML IV SCH (18:00)
[2024-09-01] MEDS ORDERED: Bumetanide 10 MG in Bag 1 BAG IV SCH (18:00)
[2024-09-01] MEDS ORDERED: Morphine Sulfate 4 MG/1 ML Injection IV ONE (18:25)
[2024-09-01] MEDS ORDERED: NS 250 ML IV PRN (18:35)
[2024-09-01] MEDS ORDERED: Bumetanide 0.25 MG/ML 10ML Vial IV ONE (18:35)
--- NOTE | 2024-09-01 19:15 | NUR ---
PT ARRIVAL... PT ARRIVED TO THE UNIT FROM THE SUBSTATION TECHNICIAN. PA CATH TO THE RIGHT IJ, SITE IS STABLE, MEASUREMENT OF THE LINE IS 55CM. ART LINE TO THE RIGHT RADIAL IS STABLE. THE PT'S RIGHT FINGERS ARE PALE, COOL AND NAIL BEDS ARE SLIGHTLY DUSKY, S IRON WORKER IS AWARE. PT DENIES PAIN TO THE RIGHT HAND/FINGERS. PT IS IN SR IN THE 80'S. LEVOPHED IS RUNNING AT 6MCG/MIN TO KEEP MAPS>65. PT IS A&Ox4, DENIES CHEST PAIN/PRESSURE DOES C/O OF A HEAD ACHE AND NECK PAIN TO THE SWAN SITE. PT DENIES N/V AT THIS TIME. HE IS ON RA WITH O2 SATS>95% L/S CLEAR T/O. BROWN CATH PLACED PER ORDERS FOR STRICT I'S & O'S. DOUBTAMINE GTT STARTED AND TITRATED PER ORDERS UP TO 8MCG/KG/MIN. BUMEX DRIP STARTED PER ORDERS. PT'S AT THE BEDSIDE SHE WAS UPDATED BY S IRON WORKER. REPORT GIVEN TO PATRIC CLEMENTS RN.
[2024-09-01 19:50] LABS: HEPATITIS A ANTIBODY, IGM Negative (Negative); HEPATITIS B CORE ANTIBODY, IGM Negative (Negative); HEPATITIS B SURFACE ANTIGEN Negative (Negative); HEPATITIS C AB CIA INTERP Negative (Negative)
--- NOTE | 2024-09-01 22:00 | NUR ---
ASSUMPTION OF CARE/ASSESSMENT: ASSUMED CARE OF PT AT 1900; BEDSIDE REPORT RECIEVED FROM DRE MCGHEE. PT A&O X 4, PLEASANT AND COOPERATIVE WITH CARE. CURRENTLY ON RA WITH SPO2 94<, AND LUNG SOUNDS CLEAR T/O; PT DENIES SOB AT THIS TIME. PT HAS PA CATHETER IN PLACE IN [place]; MEASURING AT 55 CM. R. RADIAL ART-LINE IN PLACE. LINES PATENT AND ZEROED AT START OF SHIFT; C.O MEASURING AT 5.48. AT START OF SHIFT DOBUTAMINE @ 8 MCG AND LEVO @ 3 MCG. ABP 160-170, SR ON MONITOR WITH HR 60-70. LEVO ABLE TO BE TITRATED OFF AND DOBUTAMINE TITRATED DOWN TO [address] GONZÁLES UPDATED ON MEDICATIONS AND HTN. PER DR. GONZÁLES, DOBUTAMINE TO REMAIN ON WITH LOWEST RATE OF 2.5 MCG. PROVIDER AWARE OF HTN AND VERBAL ORDERS RECIEVED TO START NITRO IF HTN PERSISTS. PT CONTINUES WITH NO COMPLAINTS OF CHEST PAIN/PRESSURE. PT DOES COMPLAIN OF PERSISTANT HEADACHES AND NECK PAIN AT THE SITE OF CATHETER. PT TOLERATES PO INTAKE, + BT, AND NON-TENDER ABD. BROWN PATENT, URINE CLEAR/LIGHT YELLOW; BUMEX GTT @ 0.5, 1-1.5 L OUTPUT. PPP X 4. BED LOWERED, CALL LIGHT IN REACH.
[2024-09-01 22:11] LABS: Base Excess Venous -9.5 mmol/L; Bicarbonate Venous 16.7 mmol/L (24.0-30.0); PCO2 Venous 36.2 mmHg (38-42); pH Blood Venous 7.28 (7.34-7.37)
[2024-09-01 22:23] LABS: PO2 Venous 32.6 mmHg (38-42)
[2024-09-01 22:29] LABS: BASOPHILS ABSOLUTE AUTO 0.03 K/mm3 (0.00-0.23); BASOPHILS PERCENT AUTO 0 % (0-2); EOSINOPHILS ABSOLUTE AUTO 0.01 K/mm3 (0.00-0.68); EOSINOPHILS PERCENT AUTO 0 % (0-6); Hematocrit 24.2 % (37.0-53.0); Hemoglobin 7.7 g/dL (13.5-17.5); IMMATURE GRAN ABSOLUTE AUTO 0.28 K/mm3 (0.00-0.10); IMMATURE GRAN PERCENT AUTO 2 % (0-1); LYMPHOCYTES ABSOLUTE AUTO 1.48 K/mm3 (0.84-5.20); LYMPHOCYTES PERCENT AUTO 12 % (21-46); MONOCYTES ABSOLUTE AUTO 1.02 K/mm3 (0.16-1.47); MONOCYTES PERCENT AUTO 8 % (4-13); Mean Corpuscular HGB 29.1 pg (26.0-34.0); Mean Corpuscular HGB Conc 31.8 g/dL (31.5-36.5); Mean Corpuscular Volume 91 fL (80-100); Mean Platelet Volume 9.5 fL (9.1-12.4); NEUTROPHILS ABSOLUTE AUTO 9.98 K/mm3 (1.96-9.15); NEUTROPHILS PERCENT AUTO 78 % (41-73); NRBC ABSOLUTE 0.06 K/mm3 (0.00-0.02); NRBC Auto 0.5 /100 WBC (0.0-0.2); Platelet Count 281 K/mm3 (150-400); RDW Coefficient Variation 16.9 % (11.7-14.2); RDW Standard Deviation 53.4 fL (35.1-46.3); Red Blood Cell Count 2.65 M/mm3 (4.30-5.90)
[2024-09-01 23:15] LABS: Albumin, Blood 2.5 g/dL (3.4-5.0); Albumin/Globulin Ratio 0.6 (0.8-1.8); Bilirubin, Direct 0.2 mg/dL (0.0-0.3); Bilirubin, Indirect 0.4 mg/dL (0.1-0.7); Bilirubin, Total 0.6 mg/dL (0.1-1.0); Calcium, Blood 8.2 mg/dL (8.5-10.1); Creatinine, Blood 4.04 mg/dL (0.60-1.20); Globulin, Blood 4.1 g/dL (2.2-4.0); Potassium, Blood 5.1 mmol/L (3.5-5.5); Total Protein, Blood 6.6 g/dL (6.4-8.2)
[2024-09-01] MEDS ORDERED: Nitroglycerin/D5W 250 ML IV SCH (23:45)
[2024-09-02] VITALS (9 sets, daily range): BP systolic 136–177; BP diastolic 45–64
--- NOTE | 2024-09-02 | NUR ---
PT UPDATE: DR. ROCK CALLED REGARDING CRITICAL PH OF 7.28. UPDATED ON OTHER LABS. UPDATED ON URINE OUTPUT OF 1.5 L; BUMEX DRIP TURNED OFF PER PROVIDER.
[2024-09-02 00:01] LABS: Beta-hydroxybutyrate 9.5 mg/dL (0.2-2.8)
[2024-09-02 04:03] LABS: BASOPHILS ABSOLUTE AUTO 0.04 K/mm3 (0.00-0.23); BASOPHILS PERCENT AUTO 0 % (0-2); EOSINOPHILS ABSOLUTE AUTO 0.05 K/mm3 (0.00-0.68); EOSINOPHILS PERCENT AUTO 1 % (0-6); Hematocrit 23.5 % (37.0-53.0); Hemoglobin 7.7 g/dL (13.5-17.5); IMMATURE GRAN ABSOLUTE AUTO 0.28 K/mm3 (0.00-0.10); IMMATURE GRAN PERCENT AUTO 3 % (0-1); LYMPHOCYTES ABSOLUTE AUTO 1.51 K/mm3 (0.84-5.20); LYMPHOCYTES PERCENT AUTO 14 % (21-46); MONOCYTES ABSOLUTE AUTO 0.72 K/mm3 (0.16-1.47); MONOCYTES PERCENT AUTO 7 % (4-13); Mean Corpuscular HGB 29.5 pg (26.0-34.0); Mean Corpuscular HGB Conc 32.8 g/dL (31.5-36.5); Mean Corpuscular Volume 90 fL (80-100); Mean Platelet Volume 10.4 fL (9.1-12.4); NEUTROPHILS ABSOLUTE AUTO 8.05 K/mm3 (1.96-9.15); NEUTROPHILS PERCENT AUTO 76 % (41-73); NRBC ABSOLUTE 0.04 K/mm3 (0.00-0.02); NRBC Auto 0.4 /100 WBC (0.0-0.2); Platelet Count 283 K/mm3 (150-400); RDW Coefficient Variation 17.4 % (11.7-14.2); RDW Standard Deviation 54.3 fL (35.1-46.3); Red Blood Cell Count 2.61 M/mm3 (4.30-5.90); White Blood Cell Count 10.65 K/mm3 (4.00-11.30)
[2024-09-02 04:05] LABS: Base Excess Venous -8.8 mmol/L; Bicarbonate Venous 17.8 mmol/L (24.0-30.0); PCO2 Venous 32.6 mmHg (38-42); pH Blood Venous 7.33 (7.34-7.37)
[2024-09-02 04:44] LABS: Albumin, Blood 2.4 g/dL (3.4-5.0); Albumin/Globulin Ratio 0.6 (0.8-1.8); Bilirubin, Total 0.6 mg/dL (0.1-1.0); Bun/Creatinine Ratio 24.2 (12.0-20.0); Calcium, Blood 8.3 mg/dL (8.5-10.1); Creatinine, Blood 3.92 mg/dL (0.60-1.20); Globulin, Blood 4.2 g/dL (2.2-4.0); Phosphorus, Blood 5.5 mg/dL (2.5-4.9); Potassium, Blood 5.1 mmol/L (3.5-5.5); Total Protein, Blood 6.6 g/dL (6.4-8.2)
[2024-09-02 05:08] LABS: Source, Urine Clean Catch
[2024-09-02 05:11] LABS: Appearance, Urine Clear (Clear); Bilirubin, Urine Neg (Neg); Blood, Urine 3+ (Neg); Color, Urine Yellow (P-Yellow); Glucose Qualitative, Urine Neg (Neg); Ketones, Urine Neg (Neg); Leukocyte Esterase, Urine Neg (Neg); Nitrite, Urine Neg (Neg); Protein, Urine 2+ (Neg); Urobilinogen, Urine NORM (Normal)
[2024-09-02 05:24] LABS: Bacteria Mod /hpf; Red Blood Cells, Urine 0-2 /hpf (0-2); Squamous Epithelial Cells Mod /hpf (Few)
--- NOTE | 2024-09-02 06:22 | NUR ---
SHIFT SUMMARY: NO CHANGES SINCE PREVIOUS NOTE. NITRO GTT @ 40 MCG, DOBUTAMINE @ 2.5 MCG. PT C/O PAIN IN HEAD/NECK, MEDICATED PER EMAR. BROWN PATENT AND DRAINING TO GRAVITY; 2.7 L URINE OUTPUT THIS SHIFT. RADIAL ARTLINE PATENT; ABP 160-170'S, AUTOMOTIVE SPECIALTY TECHNICIAN AWARE. RIJ PA CATHETER PATENT, REMAINS @ 55 CM; PAP TRENDING DOWN THIS MORNING. ATTEMPTED TO CALL DR. REID BUT WAS UNABLE TO GET IN TOUCH. WILL RELAY INFORMATION TO DAYSHIFT RN. PT DESATS WHEN SLEEPING, NC PLACED, 2-4 LPM TO MAINTAIN SPO2 90<. BED LOWERED, CALL LIGHT IN REACH.
--- NOTE | 2024-09-02 06:46 | NUR ---
PT UPDATE: DR. GONZÁLES UPDATED BY THIS RN REGARDING CURRENT RATES OF THE DOBUTAMINE AND NITRO GTTS, WELL THE TRENDING DOWN OF THE PAP. DIRECTED TO TITRATE DOBUTAMINE GTT UP; CURRENTLY DUBUTAMINE GTT @ 4.
[2024-09-02] MEDS ORDERED: Insulin Human Regular 100 UNIT in NS 100 ML IV SCH (07:35)
[2024-09-02] MEDS ORDERED: Lactated Ringer's 500 ML IV ONE (07:35)
[2024-09-02] MEDS ORDERED: Sodium Nitroprusside 50 MG in Dextrose 5% 250 ML IV SCH (07:50)
[2024-09-02 08:37] LABS: PCO2 Arterial 38.4 mmHg (35-45); PO2 Arterial 31.3 mmHg (80-100); pH Blood Arterial 7.32 (7.35-7.45)
[2024-09-02] MEDS ORDERED: Metoprolol Succinate 25 MG TABCR PO SCH (09:00)
[2024-09-02] MEDS ORDERED: Sertraline HCl 50 MG Tab PO SCH (09:00)
[2024-09-02] MEDS ORDERED: Dextrose 10% 500 ML IV SCH (09:30)
[2024-09-02] MEDS ORDERED: Thiamine HCl 100 MG in NS 50 ML IV SCH (10:00)
[2024-09-02 10:28] LABS: Bun/Creatinine Ratio 23.7 (12.0-20.0); Calcium, Blood 8.5 mg/dL (8.5-10.1); Creatinine, Blood 3.92 mg/dL (0.60-1.20); Magnesium, Blood 1.8 mg/dL (1.6-2.4); Phosphorus, Blood 4.8 mg/dL (2.5-4.9)
[2024-09-02] MEDS ORDERED: Azithromycin 500 MG VIAL ONE (11:13)
--- NOTE | 2024-09-02 12:10 | NUR ---
AM NOTE... ASSUMED CARE OF PT AT 0700, PT IS A&Ox4. SWAN CATH TO THE RIGHT IJ IS STABLE AT 55CM. ART LINE TO THE RIGHT RADIAL IS STABLE. ALL LINES ZEROED AT THE START OF THIS SHIFT. DOUBUTAMINE GTT RUNNING 4MCG/KG/MIN, NITRO GTT RUNNNING AT 40MCG. DR. MATTHEWS WAS AT THE BEDSIDE THIS AM TO ASSESS THE PT, PER HIS ORDERS NITRO GTT WAS CHANGED TO NITROPRUSSIDE GTT. ALSO PER HIS ORDERS AN INSULIN GTT WAS STARTED. PT'S CBG WAS 152, D10W WAS STARTED AT 50MLS/HR FOR GLUCOSE SUPPORT. PT WAS PLACED ON 2L NC TO KEEP O2 SATS>94% L/S CLEAR T/O. PT IS IN SR IN THE 70'S-80'S. NO SWELLING OR EDEMA IS NOTED ON THIS ASSESSMENT. THE PT'S RIGHT HAND/FINGERS ARE MORE WARM THAN YESTERDAY. PT'S BROWN IS PATENT AND DRAINING CLEAR YELLOW URINE TO GRAVITY. BT ARE PRESENT AND HYPOACTIVE, PT C/O OF ABD PAIN AND TENDERNESS WITH PALPATION. AT 1145 DR[address] MATTHEWS CAME TO ASSESS THE PT'S SWAN LINE AGAIN, PER CHEST XRAY EARLIER THIS SHIFT THE PROVIDER PULLED OUT THE LINE APROX 5CM. CURRENT MEASUREMENT IS 50CM XRAY VERIFICATION WAS DONE AFTER THE LINE WAS REPOSITIONED. PER DR. MATTHEWS HE WOULD LIKE THE DOBUTAMINE GTT UP TO 10MCG/KG/MIN AND THE NITORPRUSSIDE TO BE TITRATED UP TO KEEP MAPS 65-70.
[2024-09-02 13:52] LABS: BASOPHILS ABSOLUTE AUTO 0.03 K/mm3 (0.00-0.23); BASOPHILS PERCENT AUTO 0 % (0-2); EOSINOPHILS ABSOLUTE AUTO 0.03 K/mm3 (0.00-0.68); EOSINOPHILS PERCENT AUTO 0 % (0-6); Hematocrit 25.6 % (37.0-53.0); Hemoglobin 7.9 g/dL (13.5-17.5); IMMATURE GRAN ABSOLUTE AUTO 0.19 K/mm3 (0.00-0.10); IMMATURE GRAN PERCENT AUTO 2 % (0-1); LYMPHOCYTES ABSOLUTE AUTO 0.88 K/mm3 (0.84-5.20); LYMPHOCYTES PERCENT AUTO 7 % (21-46); MONOCYTES PERCENT AUTO 4 % (4-13); Mean Corpuscular HGB 28.9 pg (26.0-34.0); Mean Corpuscular HGB Conc 30.9 g/dL (31.5-36.5); Mean Corpuscular Volume 94 fL (80-100); Mean Platelet Volume 9.8 fL (9.1-12.4); NEUTROPHILS ABSOLUTE AUTO 10.29 K/mm3 (1.96-9.15); NEUTROPHILS PERCENT AUTO 86 % (41-73); NRBC ABSOLUTE 0.04 K/mm3 (0.00-0.02); NRBC Auto 0.3 /100 WBC (0.0-0.2); Platelet Count 222 K/mm3 (150-400); RDW Coefficient Variation 17.3 % (11.7-14.2); Red Blood Cell Count 2.73 M/mm3 (4.30-5.90); White Blood Cell Count 11.92 K/mm3 (4.00-11.30)
[2024-09-02] MEDS ORDERED: FentaNYL Citrate 50 MCG/ML 2 ML Injection IV PRN (16:05)
[2024-09-02 16:10] LABS: PCO2 Arterial 38.4 mmHg (35-45); PO2 Arterial 37.3 mmHg (80-100); pH Blood Arterial 7.34 (7.35-7.45)
--- NOTE | 2024-09-02 16:37 | NUR ---
Spiritual Care Visit. Pt. is awake in bed and welcomes my visit. Spouse is at bedside. Pt. is known to this diesel maintenance technician from previous hospital stays. Facilitated an update and life review. Pt. verbalizes that he is ready. This diesel maintenance technician made sure the Pt. was verbalizing he was not giving up, and Pt. confirmed that he is not giving up. During the visit the Pts. cardiac doctor came to give the Pt. and spouse an update of the Pts. condition. Afterward this diesel maintenance technician prayed with Pt. Pt. and spouse verbalize gratitude for the spiritual care visit.
[2024-09-02 17:11] LABS: Bun/Creatinine Ratio 21.9 (12.0-20.0); Calcium, Blood 8.3 mg/dL (8.5-10.1); Creatinine, Blood 3.7 mg/dL (0.60-1.20); Magnesium, Blood 1.7 mg/dL (1.6-2.4); Phosphorus, Blood 3.8 mg/dL (2.5-4.9); Potassium, Blood 3.6 mmol/L (3.5-5.5)
[2024-09-02 17:46] LABS: Magnesium, Blood 1.7 mg/dL (1.6-2.4)
[2024-09-02] MEDS ORDERED: Potassium Chloride 20 MEQ TabCR PO ONE ×2 (17:50→21:55)
[2024-09-02 18:12] LABS: Albumin, Blood 2.4 g/dL (3.4-5.0); Albumin/Globulin Ratio 0.6 (0.8-1.8); Bilirubin, Direct 0.3 mg/dL (0.0-0.3); Bilirubin, Indirect 0.7 mg/dL (0.1-0.7); Bun/Creatinine Ratio 23.8 (12.0-20.0); Calcium, Blood 8.1 mg/dL (8.5-10.1); Creatinine, Blood 3.62 mg/dL (0.60-1.20); Globulin, Blood 3.8 g/dL (2.2-4.0); Phosphorus, Blood 4.2 mg/dL (2.5-4.9); Potassium, Blood 3.9 mmol/L (3.5-5.5); Total Protein, Blood 6.2 g/dL (6.4-8.2)
--- NOTE | 2024-09-02 18:35 | NUR ---
SHIFT SUMMARY... NO ACUTE NEGATIVE CHANGES ASSESSED SINCE PREVIOUS NOTES. THE PT'S SWAN CATH IS STABLE, DOBUTAMINE GTT IS RUNNING AT 10MCG/KG/MIN PER PROVIDER ORDERS, NITROPRUSSIDE GTT RUNNING TO KEEP MAPS 65-70 PER ORDERS. THE PT DENIES CHEST PAIN BUT DOES C/O OF NECK PAIN TO THE SWAN SITE AND A HEADACHE, THE PT'S PAIN DOES NOT RESOLVE WITH PAIN MEDS PER THE PT EVEN IF THE PT IS SLEEPING AND DROWSY. PT IS ON 2L NC WITH O2 SATS>95%. THE PT'S BROWN IS PATENT AND DRAINING CLEAR YELLOW URINE TO GRAVITY. PT HAS NOT HAD A BM THIS SHIFT. PT'S AT THE BEDSIDE AND UPDATED BY THE PROVIDER. WILL REPORT TO ONCOMING RN.
[2024-09-02] MEDS ORDERED: Insulin Human Lispro 100 Units/ML 3ML Syringe SC SCH (20:00)
--- NOTE | 2024-09-02 20:10 | NUR ---
ASSESSMENT/ASSUMED CARE PT RESTING QUIETLY. A&O X4. C/O PAIN TO RIGHT NECK AND HEAD WITH MOVEMENT DUE TO PA CATH TO RIGHT NECK. LUNGS CLEAR ON 3 LITERS VIA NC. RESP EVEN AND NONLABORED. DENIES COUGH AND SOB. HEART RATE REGULAR IN THE 80'S. BP STABLE VIA JOSE GUADALUPE TO RIGHT WRIST WITH DOBUTAMINE AT 10 MCQ/KG/MIN AND NITROPRESS AT 2.5 MCQ/KG/MIN. NO PEDAL EDEMA NOTED. BT+ ABD SOFT AND NONTENDER. DENIES N/V. PA CATH TO RIGHT IJ AT 50 CM. DRSG INTACT. CATH FLUSHED AND ZEROED WITHOUT DIFFICULTY. IV TO RIGHT FOREARM SITE CLEAR, FLUSHED WITHOUT DIFFICULTY. IV LEFT UPPER ARM SALINE LOCKED, SITE CLEAR. FLUSHED WITHOUT DIFFICULTY. IV TO LEFT FOREARM SALINE LOCKED, SITE CLEAR. FLUSHED WITHOUT DIFFICULTY. BROWN CATH PATENT DRAINING YELLOW URINE. REPOSTIONED WITH MIN ASSIST.
[2024-09-02 20:31] LABS: PCO2 Arterial 32.9 mmHg (35-45); PO2 Arterial 84.6 mmHg (80-100); pH Blood Arterial 7.39 (7.35-7.45)
[2024-09-02 21:43] LABS: Bun/Creatinine Ratio 22.2 (12.0-20.0); Calcium, Blood 8.2 mg/dL (8.5-10.1); Creatinine, Blood 3.74 mg/dL (0.60-1.20); Magnesium, Blood 1.6 mg/dL (1.6-2.4); Phosphorus, Blood 3.7 mg/dL (2.5-4.9); Potassium, Blood 3.4 mmol/L (3.5-5.5)
[2024-09-02] MEDS ORDERED: Mag Sulfate 1 GM/D5% 100ML 100 ML IV ONE (21:55)
[2024-09-03 02:30] LABS: Bun/Creatinine Ratio 20.2 (12.0-20.0); Calcium, Blood 8.4 mg/dL (8.5-10.1); Creatinine, Blood 3.72 mg/dL (0.60-1.20)
[2024-09-03 03:12] LABS: Potassium, Blood 3.3 mmol/L (3.5-5.5)
[2024-09-03] MEDS ORDERED: Potassium Chloride 20 MEQ TabCR PO ONE (03:25)
[2024-09-03 05:04] LABS: BASOPHILS ABSOLUTE AUTO 0.03 K/mm3 (0.00-0.23); BASOPHILS PERCENT AUTO 0 % (0-2); EOSINOPHILS ABSOLUTE AUTO 0.07 K/mm3 (0.00-0.68); EOSINOPHILS PERCENT AUTO 1 % (0-6); Hematocrit 25.2 % (37.0-53.0); Hemoglobin 8.3 g/dL (13.5-17.5); IMMATURE GRAN ABSOLUTE AUTO 0.17 K/mm3 (0.00-0.10); IMMATURE GRAN PERCENT AUTO 2 % (0-1); LYMPHOCYTES ABSOLUTE AUTO 0.89 K/mm3 (0.84-5.20); LYMPHOCYTES PERCENT AUTO 8 % (21-46); MONOCYTES ABSOLUTE AUTO 0.73 K/mm3 (0.16-1.47); MONOCYTES PERCENT AUTO 6 % (4-13); Mean Corpuscular HGB 28.6 pg (26.0-34.0); Mean Corpuscular HGB Conc 32.9 g/dL (31.5-36.5); Mean Platelet Volume 9.2 fL (9.1-12.4); NEUTROPHILS ABSOLUTE AUTO 9.65 K/mm3 (1.96-9.15); NEUTROPHILS PERCENT AUTO 84 % (41-73); NRBC ABSOLUTE 0.03 K/mm3 (0.00-0.02); NRBC Auto 0.3 /100 WBC (0.0-0.2); Platelet Count 233 K/mm3 (150-400); RDW Standard Deviation 54.2 fL (35.1-46.3); White Blood Cell Count 11.54 K/mm3 (4.00-11.30)
[2024-09-03 05:26] LABS: Mean Corpuscular Volume 87 fL (80-100)
[2024-09-03 05:43] LABS: Magnesium, Blood 1.8 mg/dL (1.6-2.4)
[2024-09-03 05:46] LABS: Albumin, Blood 2.3 g/dL (3.4-5.0); Albumin/Globulin Ratio 0.7 (0.8-1.8); Bilirubin, Total 0.8 mg/dL (0.1-1.0); Bun/Creatinine Ratio 20.1 (12.0-20.0); Calcium, Blood 8.1 mg/dL (8.5-10.1); Creatinine, Blood 3.63 mg/dL (0.60-1.20); Globulin, Blood 3.4 g/dL (2.2-4.0); Potassium, Blood 3.6 mmol/L (3.5-5.5); Total Protein, Blood 5.7 g/dL (6.4-8.2)
--- NOTE | 2024-09-03 05:55 | NUR ---
SHIFT SUMMARY PT RESTING QUIETLY. MED WITH ULTRAM DURING THE NIGHT FOR NECK PAIN WITH GOOD RESULTS. PT ASSISTING WITH TURNING AND MOVING IN BED. CONT DOBUTAMINE AT 10 MCQ/KG/MIN AND NIRTOPRUSIDE AT 2.5 MCQ/KG/MIN. SWAN CATH TO RIGHT IJ WITH DRSG INTACT. LENGTH AT 50CM. CARDIAC DENNISE DONE AND ON CHART. O2 AT 3 LITERS VIA NC. RESP EVEN AND NONLABORED. HEART RATE IN THE 80'S. BP STABLE WITH MAP 65-70. BROWN CATH PATENT DRAINING YELLOW URINE. MED WITH INSULIN PER SLIDING SCALE Q4HR. NOW TO BE CHANGED TO AC/HS. REPORT TO ON COMING NURSE
--- NOTE | 2024-09-03 08:30 | NUR ---
[place] of care: Resting in bed complaining of pain to his R neck where PA catheter is located. Ultram given. Alert & oriented. IN NSR in the 80s. MAPs 65-70. Dobutamine infusing at 10 mcgs/kg/min & nitroprusside at 2.5 mcgs/kg/min. On 3L NC with oxygen sats in the mid-90s. Poor appetite & complaining of nausea so zofran administered. PIV x4 & PA cath to R IJ. Will give fentanyl if he continues to complain of pain & monitor his nausea. Will discuss plan of care with Dr. Staples when he rounds.
[2024-09-03 09:46] LABS: Magnesium, Blood 1.8 mg/dL (1.6-2.4)
[2024-09-03 09:47] LABS: Bun/Creatinine Ratio 19.9 (12.0-20.0); Calcium, Blood 7.9 mg/dL (8.5-10.1); Creatinine, Blood 3.61 mg/dL (0.60-1.20); Phosphorus, Blood 3.5 mg/dL (2.5-4.9); Potassium, Blood 4.3 mmol/L (3.5-5.5)
[2024-09-03] MEDS ORDERED: Insulin Human Lispro 100 Units/ML 3ML Syringe SC SCH (11:30)
[2024-09-03] MEDS ORDERED: Sod Ferric Gluc Complx/Sucrose 125 MG in NS 100 ML IV SCH (12:20)
[2024-09-03] MEDS ORDERED: Ondansetron HCl 2 MG / ML 2ML Vial IV ONE (13:00)
[2024-09-03 13:57] LABS: Percent Saturation 19.3 % (20.0-50.0)
[2024-09-03 14:00] LABS: Bun/Creatinine Ratio 20.8 (12.0-20.0); Calcium, Blood 7.4 mg/dL (8.5-10.1); Creatinine, Blood 3.07 mg/dL (0.60-1.20); Magnesium, Blood 1.5 mg/dL (1.6-2.4); Phosphorus, Blood 3.1 mg/dL (2.5-4.9); Potassium, Blood 4.4 mmol/L (3.5-5.5)
[2024-09-03] MEDS ORDERED: Ondansetron HCl 2 MG / ML 2ML Vial IV PRN (16:00)
--- NOTE | 2024-09-03 17:14 | NUR ---
Shift summary: Neuro intact. Has not been complaining of pain unless PA cath site is manipulated. NSR in 70s. Dobutamine stopped per Dr. MATTHEWS & nitroprusside gtt down to 1 mcg/kg/min. See flowsheets for hemodynamics throughout the day. Room air with oxygen saturation of 92%. Cook cath draining clear yellow urine. Poor appetite - harbour master consulted. Zofran administered for nausea. PIV x3, arterial line R radial, & PA catheter to R IJ. 24 hour urine started at [address]. MATTHEWS at 1630 with most recent PA numbers as well as MAPs in the 75-80n range - he is ok with this. Will continue to monitor.
[2024-09-03] MEDS ORDERED: Mag Sulfate 1 GM/D5% 100ML 100 ML IV ONE (18:25)
[2024-09-03] MEDS ORDERED: Ethanolamine Oleate 50MG/ML 2ML Amp ONE (19:21)
[2024-09-03] MEDS ORDERED: EpiNEPhrine 1 MG/1 ML 1ML Vial ONE (19:21)
[2024-09-03 20:54] VITALS: BP 127/39
--- NOTE | 2024-09-03 20:59 | NUR ---
ASSUMPTION OF CARE: ASSUMED CARE OF PT AT 1915. PT ALERT AND ORIENTED MAKES NEEDS KNOWN AND FOLLOWS DIRECTION. MOVES ALL EXTREMETIES. PT PLACED ON 2L NC FOR SLEEP, PT WAS DESATTING TO MID 80'S. WHILE ON 2L PT SATTING 97. DENIES SOB. MONTESSORI LEAD TEACHER IN PLACE, SR WITH HR 70'S. NITROPRUSSIDE INFUSING AT 3 MCG/KG/MIN TO MAINTAIN MAP 65-70. DENIES CP/PRESSURE. ART LINE TO RIGHT RADIAL INTACT. ARMBOARD IN PLACE. PULSES PALPABLE. NO NUMBESS OR TINGLING NOTED. PA CATH TO RIGHT IJ AT 50. DRESSING INTACT. PIVS INTACT. BROWN PATENT AND DRAINING TO GRAVITY. NO BM YET. TOLERATING PO INTAKE WITH NO C/O N/V. BED LOW AND LOCKED, CALL LIGHT IN REACH.
[2024-09-03 21:19] VITALS: BP 120/39
[2024-09-04] VITALS (26 sets, daily range): BP systolic 114–160; BP diastolic 57–103
[2024-09-04 04:21] LABS: PCO2 Arterial 34.1 mmHg (35-45); pH Blood Arterial 7.38 (7.35-7.45)
[2024-09-04 04:21] LABS: Magnesium, Blood 2.1 mg/dL (1.6-2.4)
[2024-09-04 04:28] LABS: BASOPHILS ABSOLUTE AUTO 0.02 K/mm3 (0.00-0.23); BASOPHILS PERCENT AUTO 0 % (0-2); EOSINOPHILS ABSOLUTE AUTO 0.21 K/mm3 (0.00-0.68); EOSINOPHILS PERCENT AUTO 2 % (0-6); Hematocrit 24.2 % (37.0-53.0); Hemoglobin 7.8 g/dL (13.5-17.5); IMMATURE GRAN ABSOLUTE AUTO 0.12 K/mm3 (0.00-0.10); IMMATURE GRAN PERCENT AUTO 1 % (0-1); LYMPHOCYTES ABSOLUTE AUTO 1.24 K/mm3 (0.84-5.20); LYMPHOCYTES PERCENT AUTO 13 % (21-46); MONOCYTES ABSOLUTE AUTO 0.77 K/mm3 (0.16-1.47); MONOCYTES PERCENT AUTO 8 % (4-13); Mean Corpuscular HGB 29.1 pg (26.0-34.0); Mean Corpuscular HGB Conc 32.2 g/dL (31.5-36.5); Mean Corpuscular Volume 90 fL (80-100); Mean Platelet Volume 9.8 fL (9.1-12.4); NEUTROPHILS ABSOLUTE AUTO 6.94 K/mm3 (1.96-9.15); NEUTROPHILS PERCENT AUTO 75 % (41-73); NRBC ABSOLUTE 0.03 K/mm3 (0.00-0.02); NRBC Auto 0.3 /100 WBC (0.0-0.2); Platelet Count 170 K/mm3 (150-400); RDW Coefficient Variation 18.5 % (11.7-14.2); RDW Standard Deviation 57.3 fL (35.1-46.3); Red Blood Cell Count 2.68 M/mm3 (4.30-5.90)
[2024-09-04 04:30] LABS: Albumin, Blood 2.3 g/dL (3.4-5.0); Albumin/Globulin Ratio 0.6 (0.8-1.8); Bun/Creatinine Ratio 19.5 (12.0-20.0); Calcium, Blood 8.6 mg/dL (8.5-10.1); Creatinine, Blood 3.48 mg/dL (0.60-1.20); Globulin, Blood 3.6 g/dL (2.2-4.0); Phosphorus, Blood 3.8 mg/dL (2.5-4.9); Potassium, Blood 4.1 mmol/L (3.5-5.5); Total Protein, Blood 5.9 g/dL (6.4-8.2)
--- NOTE | 2024-09-04 06:10 | NUR ---
SHIFT SUMMARY: NO ACUTE CHANGES OVERNIGHT. REMAINS ALERT AND ORIENTED. PA CATH TO RIJ REMAINS AT 50, DRESSING INTACT. NITROPRUSSIDE AT 2.25 MCG/KG/MIN, TITRATED TO MAINTAIN MAP 65-70. REMAINS IN SR WITH HR 70'S. DENIES C/O CP/PRESSURE. DENIES SOB/ DENIES PAIN T/O. ABLE TO SLEEP T/O THE NIGHT. ON 2-3L NC WITH SPO2 >95%. BROWN PATENT AND DRAINING TO GRAVITY. A-LINE TO RIGHT RADIAL INTACT, ARMBOARD IN PLACE. PIVS INTACT. NO BM THIS SHIFT. TOLERATING PO INTAKE WITH NO C/O N/V OR ABDOMINAL PAIN. BED LOW AND LOCKED, CALL LIGHT IN REACH.
--- NOTE | 2024-09-04 07:00 | NUR ---
ASSUMPTION OF CARE BEDSIDE REPORT RECEIVED. PT IS ALERT AND ORIENTED, PARTICIPATES IN CONVERSATION. PA CATH TO RI. Q12 CALCULATIONS COMPLETED WITH PREVIOUS RN. R RADIAL ART LINE IN PLACE. PT ON 2L NC. REPORTS FEELING HUNGRY. BROWN PATENT AND DRAINING TO GRAVITY. 24HR URINE COLLECTION IN PROCESS. BED IN LOW POSITION, CALL LIGHT WITHIN REACH.
--- NOTE | 2024-09-04 09:00 | NUR ---
UPDATE CARDIOLOGY AT BEDSIDE THIS AM. PA CATH REMOVED BY PROVIDER, PRESSURE HELD AND DRESSING APPLIED. R RADIAL ART LINE REMOVED, PRESSURE HELD, DRESSING AND ARMBOARD IN PLACE. ORDER RECEIVED TO START COREG BID. SBP 120S, MAP >65. DENIES CP AND SOB. BED IN LOW POSITION, CALL LIGHT WITHIN REACH.
[2024-09-04] MEDS ORDERED: Carvedilol 3.125 MG Tab PO SCH (09:10)
[2024-09-04 16:30] LABS: Creatinine Urine 57.8 mg/dL (27.00-270.00)
[2024-09-04 16:41] LABS: Protein, Urine Quantitative 88.6 mg/dL (0.0-11.9)
--- NOTE | 2024-09-04 18:30 | NUR ---
SHIFT SUMMARY PT RECEIVING NITROPRESS 1.75MCG/KG/MIN. HE IS ALERT AND ORIENTED. PA CATH AND ART LINE REMOVED THIS SHIFT. DRESSINGS C/D/I. R RADIAL ARMBOARD IN PLACE. HE IS ON 2L NC. SINUS ON MONITOR WITH RATE IN 70S. 24HR URINE COMPLETED THIS SHIFT. PT REQUESTED BROWN TO BE REMOVED. PT VOIDED POST-REMOVAL. PT ABLE TO STAND AND WALK TO TOILET WITH MINIMAL ASSIST. DENIED DIZZINESS/LIGHTHEADEDNESS. PT CURRENTLY SITTING ON EDGE OF BED VISITING WITH HIS . BED IN LOW POSITION, CALL LIGHT WITHIN REACH.
[2024-09-05] VITALS (53 sets, daily range): BP systolic 107–161; BP diastolic 51–107
--- NOTE | 2024-09-05 06:14 | NUR ---
SHIFT SUMMARY PT A/OX4, RESPONDS AND CALLS APPROPRIATLY. ASSISTS WITH CARE. ON ELEMENTARY SUBSTITUTE TEACHER, SINUS, HR 70-80'S. NITROPRESS INFUSING AT 2.25 MCG/KG/HR. DENIES CP/PRESSURE THIS SHIFT. ON 3L NC, SATS > 94%. WHEN PLACED ON ROOM AIR PT DESATTED INTO THE MID-80'S. PT DENIES SOB. NO BM THIS SHIFT. PT USES URINAL IN BED INDEPENDENTLY. HAS 2 DRESSINGS FROM SWAN CATH AND A-LINE, BOTH C/D/I. NO HEMATOMAS NOTED. NO ACUTE EVENTS THIS SHIFT. CALL LIGHT IN REACH.
[2024-09-05 06:45] LABS: BASOPHILS ABSOLUTE AUTO 0.04 K/mm3 (0.00-0.23); BASOPHILS PERCENT AUTO 0 % (0-2); EOSINOPHILS ABSOLUTE AUTO 0.28 K/mm3 (0.00-0.68); EOSINOPHILS PERCENT AUTO 3 % (0-6); Hematocrit 24.6 % (37.0-53.0); Hemoglobin 7.7 g/dL (13.5-17.5); IMMATURE GRAN ABSOLUTE AUTO 0.32 K/mm3 (0.00-0.10); IMMATURE GRAN PERCENT AUTO 3 % (0-1); LYMPHOCYTES ABSOLUTE AUTO 2.02 K/mm3 (0.84-5.20); LYMPHOCYTES PERCENT AUTO 19 % (21-46); MONOCYTES ABSOLUTE AUTO 0.99 K/mm3 (0.16-1.47); MONOCYTES PERCENT AUTO 10 % (4-13); Mean Corpuscular HGB 29.3 pg (26.0-34.0); Mean Corpuscular HGB Conc 31.3 g/dL (31.5-36.5); Mean Corpuscular Volume 94 fL (80-100); Mean Platelet Volume 9.9 fL (9.1-12.4); NEUTROPHILS ABSOLUTE AUTO 6.79 K/mm3 (1.96-9.15); NEUTROPHILS PERCENT AUTO 65 % (41-73); NRBC ABSOLUTE 0.04 K/mm3 (0.00-0.02); NRBC Auto 0.4 /100 WBC (0.0-0.2); Platelet Count 139 K/mm3 (150-400); RDW Coefficient Variation 18.9 % (11.7-14.2); RDW Standard Deviation 57.7 fL (35.1-46.3); Red Blood Cell Count 2.63 M/mm3 (4.30-5.90); White Blood Cell Count 10.44 K/mm3 (4.00-11.30)
--- NOTE | 2024-09-05 07:00 | NUR ---
ASSUMPTION OF CARE PT RECEIVING NITROPRESS 2.25MCG/KG/MIN. SINUS ON MONITOR WITH RATE IN 70S-80S. MAP 71. HE IS ON 2L NC. BED IN LOW POSITION, CALL LIGHT WITHIN REACH. SEE SHIFT ASSESSMENT.
[2024-09-05 07:05] LABS: Albumin, Blood 2.3 g/dL (3.4-5.0); Albumin/Globulin Ratio 0.6 (0.8-1.8); Bilirubin, Total 1.5 mg/dL (0.1-1.0); Bun/Creatinine Ratio 22.4 (12.0-20.0); Calcium, Blood 8.6 mg/dL (8.5-10.1); Creatinine, Blood 2.99 mg/dL (0.60-1.20); Globulin, Blood 3.9 g/dL (2.2-4.0); Potassium, Blood 4.6 mmol/L (3.5-5.5); Total Protein, Blood 6.2 g/dL (6.4-8.2)
[2024-09-05] MEDS ORDERED: Bumetanide 0.25 MG/ML 4ML ViaL IV SCH (09:00)
[2024-09-05] MEDS ORDERED: Carvedilol 3.125 MG Tab PO ONE ×2 (11:15→14:15)
[2024-09-05] MEDS ORDERED: HydrALAZINE HCl 10 MG Tab PO SCH (14:00)
[2024-09-05] MEDS ORDERED: Isosorbide Dinitrate 20 MG TAB PO SCH (14:00)
[2024-09-05] MEDS ORDERED: Carvedilol 6.25 MG Tab PO SCH (14:09)
[2024-09-05] MEDS ORDERED: TraMADol HCl 50 MG Tab PO PRN (17:00)
--- NOTE | 2024-09-05 18:50 | NUR ---
SHIFT SUMMARY PT HAS BEEN OFF OF NITROPRESS SINCE 1400. PO REGIMEN STARTED THIS AFTERNOON. PT IS ALERT AND ORIENTED. REPORTS FEELING TIRED AND WAS ABLE TO REST INTERMITTENTLY THROUGHOUT THE DAY. HE IS ON 2L NC. HE HAS A COUGH THAT HAS DEVELOPED OVER THE LAST COUPLE DAYS. C/O CP WITH DEEP INSPIRATION/COUGHING AND GENERALIZED DISCOMFORT. PT AND REPORT HE IS CHRONICALLY UNCOMFORTABLE. PROVIDER NOTIFIED AND ORDER RECEIVED FOR PRN TRAMADOL. SINUS ON MONITOR WITH RATE IN 70S-80S. PT HAS BEEN VOIDING FREQUENTLY. AT BEDSIDE THIS EVENING. SHE WOULD LIKE ASSISTANCE WITH DISCHARGE PLANNING. BED IN LOW POSITION, CALL LIGHT WITHIN REACH.
[2024-09-06] VITALS (16 sets, daily range): BP systolic 113–157; BP diastolic 53–87
[2024-09-06 03:40] LABS: BASOPHILS ABSOLUTE AUTO 0.05 K/mm3 (0.00-0.23); BASOPHILS PERCENT AUTO 1 % (0-2); EOSINOPHILS ABSOLUTE AUTO 0.26 K/mm3 (0.00-0.68); EOSINOPHILS PERCENT AUTO 2 % (0-6); Hematocrit 25.2 % (37.0-53.0); Hemoglobin 8.1 g/dL (13.5-17.5); IMMATURE GRAN ABSOLUTE AUTO 0.29 K/mm3 (0.00-0.10); IMMATURE GRAN PERCENT AUTO 3 % (0-1); LYMPHOCYTES ABSOLUTE AUTO 1.97 K/mm3 (0.84-5.20); LYMPHOCYTES PERCENT AUTO 18 % (21-46); MONOCYTES ABSOLUTE AUTO 1.06 K/mm3 (0.16-1.47); MONOCYTES PERCENT AUTO 10 % (4-13); Mean Corpuscular HGB 29.9 pg (26.0-34.0); Mean Corpuscular HGB Conc 32.1 g/dL (31.5-36.5); Mean Corpuscular Volume 93 fL (80-100); Mean Platelet Volume 10.2 fL (9.1-12.4); NEUTROPHILS ABSOLUTE AUTO 7.27 K/mm3 (1.96-9.15); NEUTROPHILS PERCENT AUTO 67 % (41-73); Platelet Count 146 K/mm3 (150-400); RDW Coefficient Variation 18.6 % (11.7-14.2); RDW Standard Deviation 54.1 fL (35.1-46.3); Red Blood Cell Count 2.71 M/mm3 (4.30-5.90)
[2024-09-06 04:14] LABS: Albumin, Blood 2.6 g/dL (3.4-5.0); Albumin/Globulin Ratio 0.6 (0.8-1.8); Bilirubin, Total 1.6 mg/dL (0.1-1.0); Bun/Creatinine Ratio 24.9 (12.0-20.0); Calcium, Blood 9.1 mg/dL (8.5-10.1); Creatinine, Blood 3.05 mg/dL (0.60-1.20); Globulin, Blood 4.3 g/dL (2.2-4.0); Potassium, Blood 4.1 mmol/L (3.5-5.5); Total Protein, Blood 6.9 g/dL (6.4-8.2)
--- NOTE | 2024-09-06 05:05 | NUR ---
SHIFT SUMMARY PT A/OX4, PARTICIPATING IN HIS CARE. VSS ON 2L NC. SBP RANGING BEWTEEN 110-140'S. HR MAINTAINING 60-80'S. DENIES CHEST PAIN. PO MEDS STARTED THIS SHIFT, NITROPRESS OFF FOR ENTIRE SHIFT. PT GETTING DIURETICS, GOOD UOP NOTED. USES URINAL IN BED INDEPENDENTLY. NO BM THIS SHIFT. AFEBRILE. NO ACUTE EVENTS THIS SHIFT. CALL LIGHT IN REACH.
[2024-09-06] MEDS ORDERED: HydrALAZINE HCl 25 MG Tab PO SCH (09:00)
[2024-09-06] MEDS ORDERED: Epoetin Alfa-EPBX 10,000 Unit/ML 1ML Vial SC SCH (09:00)
[2024-09-06] MEDS ORDERED: Apixaban 5 MG Tab PO SCH (09:30)
[2024-09-06] MEDS ORDERED: Docusate Sodium/Senna 1 Tab PO PRN (11:40)
--- NOTE | 2024-09-06 18:00 | NUR ---
SHIFT SUMMARY PT A&O X3. RESPONDS APPROPRIATELY TO PROMPTS AND USES CALL LIGHT INDEPENDENTLY.PT IS STAND BY ASSIST,AMBULATES AROUND ROOM W/WALKER. SBP 120'S,HR 70-80S. SINUS RHYTHM. PT STARTED THIS SHIFT ON 2L O2 VIA NC. AT END OF SHIFT, PT SATS >90% MAINTAINING ON RA. PT DESATS A BIT W/ ACTIVITY, RECOVERS WELL. PT TOLERATING ORAL INTAKE APPROPRIATELY. USING URINAL AT BEDSIDE INDEPENDENTLY. NO URINARY ISSUES REPORTED. PT STARTED ON SENNA THIS AM PER DR. IRWIN ORDERS. PT HAD BM THIS SHIFT. PT CONTINUES TO REPORT GENERALIZED PAIN, MAINLY IN JOINTS AND FEET. PT RECEIVED ONE DOSE TRAMADOL AND 50MCG FENTANYL- SEE EMAR- THIS SHIFT. PT STATES PAIN RELIEF MEASURES ADEQUATE AT THIS TIME "HE IS ALWAYS IN PAIN AND MEDICATIONS ONLY NUMB IT." PT MADE MEDICAL TELE STATUS THIS SHIFT, REMAINS IN ICU 14.
[2024-09-07 03:29] LABS: BASOPHILS ABSOLUTE AUTO 0.03 K/mm3 (0.00-0.23); BASOPHILS PERCENT AUTO 0 % (0-2); EOSINOPHILS ABSOLUTE AUTO 0.31 K/mm3 (0.00-0.68); EOSINOPHILS PERCENT AUTO 3 % (0-6); Hematocrit 24.3 % (37.0-53.0); Hemoglobin 7.8 g/dL (13.5-17.5); IMMATURE GRAN ABSOLUTE AUTO 0.22 K/mm3 (0.00-0.10); IMMATURE GRAN PERCENT AUTO 2 % (0-1); LYMPHOCYTES ABSOLUTE AUTO 2.48 K/mm3 (0.84-5.20); LYMPHOCYTES PERCENT AUTO 25 % (21-46); MONOCYTES PERCENT AUTO 11 % (4-13); Mean Corpuscular HGB Conc 32.1 g/dL (31.5-36.5); Mean Corpuscular Volume 94 fL (80-100); Mean Platelet Volume 9.8 fL (9.1-12.4); NEUTROPHILS ABSOLUTE AUTO 5.62 K/mm3 (1.96-9.15); NEUTROPHILS PERCENT AUTO 58 % (41-73); Platelet Count 136 K/mm3 (150-400); RDW Coefficient Variation 19.1 % (11.7-14.2); RDW Standard Deviation 55.9 fL (35.1-46.3); White Blood Cell Count 9.76 K/mm3 (4.00-11.30)
[2024-09-07 04:27] LABS: Albumin, Blood 2.6 g/dL (3.4-5.0); Albumin/Globulin Ratio 0.6 (0.8-1.8); Bilirubin, Total 0.9 mg/dL (0.1-1.0); Bun/Creatinine Ratio 26.5 (12.0-20.0); Calcium, Blood 8.9 mg/dL (8.5-10.1); Creatinine, Blood 3.36 mg/dL (0.60-1.20); Globulin, Blood 4.3 g/dL (2.2-4.0); Potassium, Blood 4.5 mmol/L (3.5-5.5); Total Protein, Blood 6.9 g/dL (6.4-8.2)
--- NOTE | 2024-09-07 05:49 | NUR ---
SHIFT SUMMARY PT A/OX4 AND PARTICIPATING IN CARE. HE IS ON ROOM AIR, SATS > 90% WITH AN OCCASSIONAL READING IN THE HIGH 80'S BUT POPS BACK UP TO THE 90'S QUICKLY. HR 60-70'S, MAPS > 65, BP STABLE. PT TOLERATING PO INTAKE, GOOD UOP NOTED, NO BM THIS SHIFT DENIES ACUTE PAIN. NO ACUTE EVENTS, CALL LIGHT IN REACH.
[2024-09-07 06:14] VITALS: BP 116/62
[2024-09-07 08:19] VITALS: BP 102/62
[2024-09-07] MEDS ORDERED: Bumetanide 0.25 MG/ML 4ML ViaL IV SCH (09:00)
[2024-09-07 09:40] VITALS: BP 121/64
--- NOTE | 2024-09-07 14:41 | NUR ---
Spiritual Care Visit. Pt. is awake and sitting up. Pt. is known to this eyedotter from previous hospitalizations. Consider matters of nelly and belief. Pt. displays strength and confidence in his nelly. Prayed with Pt. Pt. verbalized gratitude for the spiritual care visit.
--- NOTE | 2024-09-07 18:29 | NUR ---
DAY SHIFT SUMMARY PT W NO MAJOR CHANGED THIS SHIFT. VSS ON RM AIR. PT WORKED W PT/OT TOLERATING AMBULATION AROUND THE NURSES STATION ON RM AIR W NO DROPS IN HIS SPO2. PT TOLERATING PO INTAKE WELL. PT REPORTING GENERALIZED FATIGUE THIS SHIFT. PT UP IN RECLINER ALL DAY. PT DENYING ANY PAIN OR NAUSEA THIS SHIFT. WILL REPORT TO ONCOMING RN.
[2024-09-07 20:40] VITALS: BP 137/63
[2024-09-08 03:20] LABS: BASOPHILS ABSOLUTE AUTO 0.04 K/mm3 (0.00-0.23); BASOPHILS PERCENT AUTO 0 % (0-2); EOSINOPHILS ABSOLUTE AUTO 0.26 K/mm3 (0.00-0.68); EOSINOPHILS PERCENT AUTO 3 % (0-6); Hematocrit 26.1 % (37.0-53.0); Hemoglobin 8.4 g/dL (13.5-17.5); IMMATURE GRAN ABSOLUTE AUTO 0.16 K/mm3 (0.00-0.10); IMMATURE GRAN PERCENT AUTO 2 % (0-1); LYMPHOCYTES ABSOLUTE AUTO 2.24 K/mm3 (0.84-5.20); LYMPHOCYTES PERCENT AUTO 24 % (21-46); MONOCYTES ABSOLUTE AUTO 1.06 K/mm3 (0.16-1.47); MONOCYTES PERCENT AUTO 11 % (4-13); Mean Corpuscular HGB Conc 32.2 g/dL (31.5-36.5); Mean Corpuscular Volume 93 fL (80-100); NEUTROPHILS ABSOLUTE AUTO 5.79 K/mm3 (1.96-9.15); NEUTROPHILS PERCENT AUTO 61 % (41-73); Platelet Count 164 K/mm3 (150-400); RDW Coefficient Variation 19.8 % (11.7-14.2); RDW Standard Deviation 67.2 fL (35.1-46.3); White Blood Cell Count 9.55 K/mm3 (4.00-11.30)
[2024-09-08 03:40] LABS: Albumin, Blood 2.7 g/dL (3.4-5.0); Albumin/Globulin Ratio 0.6 (0.8-1.8); Bilirubin, Total 0.8 mg/dL (0.1-1.0); Bun/Creatinine Ratio 30.4 (12.0-20.0); Calcium, Blood 9.5 mg/dL (8.5-10.1); Creatinine, Blood 3.42 mg/dL (0.60-1.20); Globulin, Blood 4.7 g/dL (2.2-4.0); Potassium, Blood 4.8 mmol/L (3.5-5.5); Total Protein, Blood 7.4 g/dL (6.4-8.2)
--- NOTE | 2024-09-08 05:40 | NUR ---
SHIFT SUMMARY PT A/OX4, VSS. ON ROOM AIR, SATS > 92%. GOOD UOP NOTED. PT SLEPT THROUGH THE NIGHT WITH NO ACUTE EVENTS. CALL LIGHT IN REACH.
[2024-09-08 06:11] VITALS: BP 120/55
[2024-09-08 08:18] VITALS: BP 113/57
[2024-09-08] MEDS ORDERED: Torsemide 20 MG TAB PO SCH (09:00)
[2024-09-08 15:04] VITALS: BP 128/67
--- NOTE | 2024-09-08 18:45 | NUR ---
DAY SHIFT SUMMARY PT W NO EVENTS THIS SHIFT. VSS ON RM AIR. PT W GOOD PO INTAKE. PT INDEPENDENT IN THE RM. WILL REPORT TO ONCOMING RN.
--- NOTE | 2024-09-08 23:26 | NUR ---
ASSUMPTION OF CARE PT LYING IN RECLINER. ALERT AND ORIENTED. VSS. NO CHEST PAIN/PRESSURE, SOB, AB PAIN. PT C/O JOYNER RESISTANT TO ULTRAM THAT WAS GIVEN BEFORE START OF SHIFT. WILL TREAT PER SEP. PT HAS CALL LIGHT HANDY.
[2024-09-09] VITALS (7 sets, daily range): BP systolic 117–135; BP diastolic 47–67
[2024-09-09 03:27] LABS: BASOPHILS ABSOLUTE AUTO 0.03 K/mm3 (0.00-0.23); BASOPHILS PERCENT AUTO 0 % (0-2); EOSINOPHILS ABSOLUTE AUTO 0.21 K/mm3 (0.00-0.68); EOSINOPHILS PERCENT AUTO 2 % (0-6); Hematocrit 23.8 % (37.0-53.0); Hemoglobin 7.7 g/dL (13.5-17.5); IMMATURE GRAN ABSOLUTE AUTO 0.07 K/mm3 (0.00-0.10); IMMATURE GRAN PERCENT AUTO 1 % (0-1); LYMPHOCYTES ABSOLUTE AUTO 2.48 K/mm3 (0.84-5.20); LYMPHOCYTES PERCENT AUTO 28 % (21-46); MONOCYTES ABSOLUTE AUTO 0.96 K/mm3 (0.16-1.47); MONOCYTES PERCENT AUTO 11 % (4-13); Mean Corpuscular HGB 30.4 pg (26.0-34.0); Mean Corpuscular HGB Conc 32.4 g/dL (31.5-36.5); Mean Corpuscular Volume 94 fL (80-100); Mean Platelet Volume 9.8 fL (9.1-12.4); NEUTROPHILS ABSOLUTE AUTO 5.08 K/mm3 (1.96-9.15); NEUTROPHILS PERCENT AUTO 58 % (41-73); Platelet Count 157 K/mm3 (150-400); RDW Coefficient Variation 19.6 % (11.7-14.2); RDW Standard Deviation 65.8 fL (35.1-46.3); Red Blood Cell Count 2.53 M/mm3 (4.30-5.90); White Blood Cell Count 8.83 K/mm3 (4.00-11.30)
[2024-09-09 03:52] LABS: Albumin, Blood 2.5 g/dL (3.4-5.0); Albumin/Globulin Ratio 0.6 (0.8-1.8); Bilirubin, Total 0.7 mg/dL (0.1-1.0); Bun/Creatinine Ratio 33.9 (12.0-20.0); Calcium, Blood 9.1 mg/dL (8.5-10.1); Creatinine, Blood 3.27 mg/dL (0.60-1.20); Globulin, Blood 4.2 g/dL (2.2-4.0); Potassium, Blood 4.4 mmol/L (3.5-5.5); Total Protein, Blood 6.7 g/dL (6.4-8.2)
--- NOTE | 2024-09-09 07:30 | NUR ---
SHIFT SUMMARY PT SITTING UP IN RECLINING AFTER SLEEPING IN IT ALL NIGHT. SAYS HE SLEPT WELL. ALERT AND ORIENTED TO ALL. MAEW AND IS INDEPENDENT WITH ADLS. PT GIVEN FENTANYL FOR JOYNER. HR SINUS RHYTHM IN 70'S WITH ST DEPRESSION AND LONG QRS (0.11 -0.13). BP STABLE WITH MAP 65-71. NO CHEST PAIN/PRESSURE, SOB, AB PAIN, N/V. SATURATIONS >93% ON RA. PT MAY GO HOME TODAY. REPORT GIVEN TO ONCOMING RN. PT HAS CALL LIGHT HANDY.
[2024-09-09] MEDS ORDERED: Torsemide 20 MG TAB PO SCH (09:00)
[2024-09-09] MEDS ORDERED: NS 1,000 ML IV SCH (09:35)
--- NOTE | 2024-09-09 17:22 | NUR ---
Gummy candy labeled with marijuana warning found in patient's bed. Disucussed with patient that consumption of marijunana products is not permitted while in hospital. Item sent home with pt's spouse. Dr Correia notified.
--- NOTE | 2024-09-09 18:39 | NUR ---
SUMMARY PT A/O X4. UP TO RECLINER CHAIR MOST OF THE DAY. DECLINED SHOWER. HAS BEEN MORE LETHARGIC TODAY. BETTER APPETITE TODAY. DR. SEAMAN IS ADJUSTING MEDS THEREFORE PT DID NOT GET DISCHARGED TODAY. UP TO USE URINAL INDEP. NO ACUTE CHANGES. NO SIGN OF DISTRESS.
--- NOTE | 2024-09-09 20:36 | NUR ---
ASSUMPTION OF CARE PT LYING IN RECLINER WATCHING TV. ALERT AND ORIENTED TO ALL. PT SAYS HE IS TIRED OF ALL THE MEDICAL TREATMENT. PT HAS DULL, ACHING JOYNER. CHRONIC JOYNER SINCE RECENT HOSPITAL STAYS. WILL TREAT WITH MEDS PER SEP. HR SINUS RHYTHM 74, STABLE BP AT 133/65 (85). RA PRODUCING SATURATIONS >93% NO CHEST PAIN /PRESSURE. SOME MILD ABDOMINAL PAIN; PT THINKS HE IS CONSTIPATED AND WILL BE MEDICATED WITH GI MEDS. NS HAS BEEN STARTED AT REQUEST OF JURGEN AT 75ML/HR AND PT INPUT AND OUTPUT IS BEING CLOSELY MONITORED. PT HAS CALL LIGHT HANDY. WILL REVIEW PLAN OF CARE OF CONTINUE WITH APPROPRIATE INTERVENTIONS.
[2024-09-10 00:15] VITALS: BP 122/70
--- NOTE | 2024-09-10 02:02 | NUR ---
TRANSFER NOTE HANDOFF RECEIVED FROM BROADCAST MAINTENANCE TECHNICIAN TYSHAWN. PT ARRIVED TO FLOOR VIA WHEELCHAIR. PERSONAL POSSESSIONS WITH PT. IV FLUID INFUSING ORDERED. PT ORIENTED TO UNIT. CALL BUTTON WITHIN REACH.
--- NOTE | 2024-09-10 02:52 | NUR ---
TRANSFER OF CARE AT 0140, PT PUT IN WHEELCHAIR WITH BELONGINGS AND [facility] AND BROUGHT TO ROOM 355 WHERE MARTHA RN WAS WAITING TO RECEIVE PT. REPORT WAS GIVEN TO MARTHA BEFORE THE PHYSICAL TRANSFER OF PT. PT STABLE AT TIME OF TRANSFER. VSS STABLE. NO CHEST PAIN/PRESSURE, SOB, AB PAIN.
[2024-09-10 02:59] VITALS: BP 142/63
--- NOTE | 2024-09-10 03:54 | NUR ---
SHIFT SUMMARY ADMITTED FOR CARDIOGENIC SHOCK, NOW RESOLVED. DNR CODE. TRANSFERED TO MED FLOOR THIS SHIFT. FOUND TO HAVE NABEEL. DR. SEAMAN IS RENAL CONSULT. WE ARE MONITORING HIS FLUID BALANCE. HE IS DRINKING WATER WELL SINCE TRANSFERING HERE. HE IS A&O X4, INDEPENDENT IN ROOM, ON RA. HE IS ON ELIQUIS.
[2024-09-10 05:24] LABS: BASOPHILS ABSOLUTE AUTO 0.05 K/mm3 (0.00-0.23); BASOPHILS PERCENT AUTO 1 % (0-2); EOSINOPHILS ABSOLUTE AUTO 0.25 K/mm3 (0.00-0.68); EOSINOPHILS PERCENT AUTO 3 % (0-6); Hematocrit 24.8 % (37.0-53.0); IMMATURE GRAN ABSOLUTE AUTO 0.07 K/mm3 (0.00-0.10); IMMATURE GRAN PERCENT AUTO 1 % (0-1); LYMPHOCYTES ABSOLUTE AUTO 2.52 K/mm3 (0.84-5.20); LYMPHOCYTES PERCENT AUTO 27 % (21-46); MONOCYTES PERCENT AUTO 11 % (4-13); Mean Corpuscular HGB 30.5 pg (26.0-34.0); Mean Corpuscular HGB Conc 32.3 g/dL (31.5-36.5); Mean Corpuscular Volume 95 fL (80-100); Mean Platelet Volume 10.1 fL (9.1-12.4); NEUTROPHILS ABSOLUTE AUTO 5.45 K/mm3 (1.96-9.15); NEUTROPHILS PERCENT AUTO 58 % (41-73); Platelet Count 175 K/mm3 (150-400); RDW Coefficient Variation 19.4 % (11.7-14.2); RDW Standard Deviation 66.6 fL (35.1-46.3); Red Blood Cell Count 2.62 M/mm3 (4.30-5.90); White Blood Cell Count 9.34 K/mm3 (4.00-11.30)
[2024-09-10 05:54] LABS: Albumin, Blood 2.6 g/dL (3.4-5.0); Anion Gap 12 mmol/L (3-11); Blood Urea Nitrogen 103 mg/dL (8-24); Bun/Creatinine Ratio 30.7 (12.0-20.0); CO2, Blood 24 mmol/L (21-32); Calcium, Blood 9.4 mg/dL (8.5-10.1); Chloride, Blood 100 mmol/L (98-108); Creatinine, Blood 3.36 mg/dL (0.60-1.20); Glomerular Filtration Rate 20 (60-); Glucose, Blood 123 mg/dL (70-99); Phosphorus, Blood 7.4 mg/dL (2.5-4.9); Potassium, Blood 4.2 mmol/L (3.5-5.5); Sodium, Blood 132 mmol/L (136-145)
[2024-09-10 07:40] VITALS: BP 118/79
[2024-09-10] MEDS ORDERED: Torsemide 20 MG TAB PO SCH (09:00)
--- NOTE | 2024-09-10 09:30 | NUR ---
Spiritual Care Visit. Pt. is awake and sitting up on the side of his bed while eating his breakfast. Pt. is pleasant. Facilitated an update mostly with the Pts. daughter at bedside. Listen with interest and empathy while seeking to normal ize the Pt. experience. Pt. displayed evidence of both motivation and compliance as he seeks to shake his virus. Prayed with the Pt. Pt. and daughter both verbalize gratitude for the spiritual care visit.
--- NOTE | 2024-09-10 10:41 | NUR ---
pt laying in bed wakes easily, a/ox4, pleasant and cooperative with care, follows commands well, denies pain at this time, states he slept ok last night, lungs are clear t/o, resp even and unlabored, on r/a, no cough noted, hrr, tele in place running sr with first degree and bbb, no edema noted, ppp+1, cap refill< 3 sec, vs stable afebrile, piv to lfa site is clear and patent, btx4, abd flat soft nontender, voids without diff, skin frail but intact, maew, michael, call light in reach.
[2024-09-10 11:43] VITALS: BP 119/47
[2024-09-10 15:30] VITALS: BP 133/64
[2024-09-10] MEDS ORDERED: Sod Ferric Gluc Complx/Sucrose 125 MG in NS 100 ML IV ONE (15:30)
[2024-09-10] MEDS ORDERED: Sevelamer Carbonate 800 MG Tab PO SCH (17:30)
--- NOTE | 2024-09-10 19:16 | NUR ---
pt sits up on the side of the bed for meals, had a bad h/a this evening, gave tramadol, with some relief, pt had an episode of his left eye not responding to light, by the time came to see him it resolved, did a CT. no further changes this shift. call light in reach.
[2024-09-10 20:05] VITALS: BP 138/69
[2024-09-11 00:26] VITALS: BP 125/52
[2024-09-11] MEDS ORDERED: Acetaminophen 325 MG TABLET PO PRN (01:10)
--- NOTE | 2024-09-11 03:19 | NUR ---
FISHER TROLL LINE SUMMARY SLIGHT FEVER, OTHERWISE VSS. TYLENOL ADMIN. WILL MONITOR. ALERT AND ORINETED TO QUESTIONS ASKED. MED TELE - SR IN THE 80'S. PUPILS EQUAL. ACCU CHECK AT HS WAS 186, GLARGINE INSULIN ADMIN. VOICED HAD BM, (AM RN REPORTED SOME S/S CONSTIPATION). HAS BEEN RESTING QUIETLY WITH FEW INTERRUPTIONS. PAIN MEDS ADMIN PT REQUESTED - SEE MAR FOR DETAILS. CALL LIGHT IN REACH, RAILS UP X 2 AND BED IN LOW POSITION FOR SAFEATY. ABLE TO REPOSITION SELF IN BED WITHOUT ASSIST FOR COMFORT. WILL CONT TO MONITOR
[2024-09-11 04:47] VITALS: BP 130/66
[2024-09-11 05:13] LABS: BASOPHILS ABSOLUTE AUTO 0.05 K/mm3 (0.00-0.23); BASOPHILS PERCENT AUTO 1 % (0-2); EOSINOPHILS ABSOLUTE AUTO 0.27 K/mm3 (0.00-0.68); EOSINOPHILS PERCENT AUTO 3 % (0-6); Hematocrit 24.7 % (37.0-53.0); Hemoglobin 7.7 g/dL (13.5-17.5); IMMATURE GRAN ABSOLUTE AUTO 0.06 K/mm3 (0.00-0.10); IMMATURE GRAN PERCENT AUTO 1 % (0-1); LYMPHOCYTES PERCENT AUTO 29 % (21-46); MONOCYTES ABSOLUTE AUTO 0.87 K/mm3 (0.16-1.47); MONOCYTES PERCENT AUTO 9 % (4-13); Mean Corpuscular HGB Conc 31.2 g/dL (31.5-36.5); Mean Corpuscular Volume 96 fL (80-100); Mean Platelet Volume 9.9 fL (9.1-12.4); NEUTROPHILS ABSOLUTE AUTO 5.46 K/mm3 (1.96-9.15); NEUTROPHILS PERCENT AUTO 58 % (41-73); Platelet Count 191 K/mm3 (150-400); RDW Coefficient Variation 19.3 % (11.7-14.2); RDW Standard Deviation 67.2 fL (35.1-46.3); Red Blood Cell Count 2.57 M/mm3 (4.30-5.90); White Blood Cell Count 9.51 K/mm3 (4.00-11.30)
[2024-09-11 05:30] LABS: Albumin, Blood 2.6 g/dL (3.4-5.0); Anion Gap 12 mmol/L (3-11); Blood Urea Nitrogen 109 mg/dL (8-24); Bun/Creatinine Ratio 35.2 (12.0-20.0); CO2, Blood 22 mmol/L (21-32); Calcium, Blood 9.4 mg/dL (8.5-10.1); Chloride, Blood 103 mmol/L (98-108); Glomerular Filtration Rate 22 (60-); Glucose, Blood 79 mg/dL (70-99); Phosphorus, Blood 6.6 mg/dL (2.5-4.9); Potassium, Blood 4.2 mmol/L (3.5-5.5); Sodium, Blood 133 mmol/L (136-145)
[2024-09-11 07:35] VITALS: BP 124/61
[2024-09-11 14:16] VITALS: BP 132/72
[2024-09-11 15:45] VITALS: BP 128/67
--- NOTE | 2024-09-11 16:53 | NUR ---
SHIFT SUMMARY PT IS A/OX4. NO ACUTE EVENTS THROUGHOUT THIS SHIFT. ON RA. ON TELE RUNNING NORMAL SINUS RYTHYM W/BBB IN THE 60'S. PT VISITED BY PALLIATIVE CARE THIS AFTERNOON. PT RESTING IN BED THROUGHOUT MUCH OF THE DAY. PT PLEASANT AND COOPERATIVE WITH CARE AND CALLS APPROPRIATELY USING THE CALL LIGHT.
[2024-09-11 19:54] VITALS: BP 129/58
[2024-09-12 00:50] VITALS: BP 126/54
--- NOTE | 2024-09-12 03:15 | NUR ---
HAND SUTURE WINDER SUMMARY VSS. VISITED EARLIER. PT AFFECT AND GENERAL BEHAVIOR WAS CHEERFUL AND SMILED WHEN SPEAKING TO STAFF. DENIED DISCOMFORT. UP OOB, TOOK A WALK WITH , USING WALKER. MED [employer] SR IN THE 70'S WITH 1ST DEGREE AND BBB. ASYMPTOMATIC. HAS BEEN RESTING QUIETLY WITH FEW INTERRUPTIONS SINCE LEFT. ABLE TO REPOSITION SELF IN BED WITHOUT ASSIST. CALL LIGHT IN REACH, RAILS UP X 2 AND BED IN LOW POSITION FOR SAFETY. WILL CONTINUE TO MONITOR.
[2024-09-12 04:55] VITALS: BP 129/59
[2024-09-12 05:14] LABS: BASOPHILS ABSOLUTE AUTO 0.05 K/mm3 (0.00-0.23); BASOPHILS PERCENT AUTO 1 % (0-2); EOSINOPHILS ABSOLUTE AUTO 0.35 K/mm3 (0.00-0.68); EOSINOPHILS PERCENT AUTO 4 % (0-6); Hematocrit 24.1 % (37.0-53.0); Hemoglobin 7.4 g/dL (13.5-17.5); IMMATURE GRAN ABSOLUTE AUTO 0.05 K/mm3 (0.00-0.10); IMMATURE GRAN PERCENT AUTO 1 % (0-1); LYMPHOCYTES ABSOLUTE AUTO 2.92 K/mm3 (0.84-5.20); LYMPHOCYTES PERCENT AUTO 33 % (21-46); MONOCYTES ABSOLUTE AUTO 0.74 K/mm3 (0.16-1.47); MONOCYTES PERCENT AUTO 8 % (4-13); Mean Corpuscular HGB 29.8 pg (26.0-34.0); Mean Corpuscular HGB Conc 30.7 g/dL (31.5-36.5); Mean Corpuscular Volume 97 fL (80-100); Mean Platelet Volume 9.9 fL (9.1-12.4); NEUTROPHILS PERCENT AUTO 53 % (41-73); Platelet Count 221 K/mm3 (150-400); RDW Coefficient Variation 18.8 % (11.7-14.2); RDW Standard Deviation 66.9 fL (35.1-46.3); Red Blood Cell Count 2.48 M/mm3 (4.30-5.90); White Blood Cell Count 8.81 K/mm3 (4.00-11.30)
[2024-09-12 05:51] LABS: Alanine Aminotransfer (ALT/SGP 151 U/L (12-78); Albumin, Blood 2.6 g/dL (3.4-5.0); Albumin/Globulin Ratio 0.6 (0.8-1.8); Alk Phos 114 U/L (50-136); Anion Gap 11 mmol/L (3-11); Aspartate Aminotrans (AST/SGOT 25 U/L (12-37); Bilirubin, Total 0.5 mg/dL (0.1-1.0); Blood Urea Nitrogen 104 mg/dL (8-24); Bun/Creatinine Ratio 33.8 (12.0-20.0); CO2, Blood 23 mmol/L (21-32); Chloride, Blood 103 mmol/L (98-108); Creatinine, Blood 3.08 mg/dL (0.60-1.20); Globulin, Blood 4.4 g/dL (2.2-4.0); Glomerular Filtration Rate 22 (60-); Glucose, Blood 161 mg/dL (70-99); Phosphorus, Blood 5.9 mg/dL (2.5-4.9); Potassium, Blood 4.2 mmol/L (3.5-5.5); Sodium, Blood 133 mmol/L (136-145)
[2024-09-12 07:21] VITALS: BP 134/69
[2024-09-12] MEDS ORDERED: Torsemide 20 MG TAB PO SCH (11:00)
[2024-09-12] MEDS ORDERED: ISODIN20 PO (12:30)
[2024-09-12] MEDS ORDERED: Acetaminophen325 M1 PO (12:30)
[2024-09-12] MEDS ORDERED: SEVEC800 PO (12:31)
[2024-09-12] MEDS ORDERED: HYDRA25 PO (12:31)
[2024-09-12] MEDS ORDERED: CARV6.25 PO (12:31)
[2024-09-12] MEDS ORDERED: SOAANZ40 M1 PO (12:32)
--- NOTE | 2024-09-12 13:30 | NUR ---
PT DISCHARGED TO HOME WITH . DISCHARGE INSTRUCTIONS PROVIDED AND EDUCATED ON AT TIME OF DISCHARGE. ALL VALUABLES RETURNED AND SENT HOME WITH THE PT.
== END 2024-09-12 13:29 | disposition home or self-care (01) | DRG 871 ==
LOC: ER 09:28 → ERHOLD 14:05 → ICUE 14:05 → PCU 14:05 → ICUE 09-01 15:47 → MEDS 09-10 02:11 → ENPENDDIS 09-12 11:26 → MEDS 09-12 13:29
PROVIDERS: Emergency Medicine; Family Medicine; Hospitalist; Internal Medicine; Nurse Practitioner Acute Care; Student in an Organized Health Care Education/Training Program; ADMIT Family Medicine
PROC: 3E03329 Introduction of Other Anti-infective into Peripheral Vein, Percutaneous Approach (ICD-10-PCS; principal; 2024-09-01)
PROC: 03HY32Z Insertion of Monitoring Device into Upper Artery, Percutaneous Approach (ICD-10-PCS; 2024-09-01)
PROC: 4A133B1 Monitoring of Arterial Pressure, Peripheral, Percutaneous Approach (ICD-10-PCS; 2024-09-01)
PROC: 4A133J1 Monitoring of Arterial Pulse, Peripheral, Percutaneous Approach (ICD-10-PCS; 2024-09-01)
PROC: 4A023N6 Measurement of Cardiac Sampling and Pressure, Right Heart, Percutaneous Approach (ICD-10-PCS; 2024-09-01)
PROC: 3E033XZ Introduction of Vasopressor into Peripheral Vein, Percutaneous Approach (ICD-10-PCS; 2024-09-01)
PROC: 30233N1 Transfusion of Nonautologous Red Blood Cells into Peripheral Vein, Percutaneous Approach (ICD-10-PCS; 2024-09-02)
PROC: 02HQ32Z Insertion of Monitoring Device into Right Pulmonary Artery, Percutaneous Approach (ICD-10-PCS; 2024-09-02)
PROC: 4A133B3 Monitoring of Arterial Pressure, Pulmonary, Percutaneous Approach (ICD-10-PCS; 2024-09-02)
PROC: 4A1239Z Monitoring of Cardiac Output, Percutaneous Approach (ICD-10-PCS; 2024-09-02)
DX: A41.9 Sepsis, unspecified organism (principal); J18.9 Pneumonia, unspecified organism; R57.0 Cardiogenic shock; K72.00 Acute and subacute hepatic failure without coma; N18.4 Chronic kidney disease, stage 4 (severe); N17.9 Acute kidney failure, unspecified; E87.20 Acidosis, unspecified; I50.22 Chronic systolic (congestive) heart failure; E87.1 Hypo-osmolality and hyponatremia; S36.119A Unspecified injury of liver, initial encounter; I13.0 Hypertensive heart and chronic kidney disease with heart failure and stage 1 through stage 4 chronic kidney disease, or unspecified chronic kidney disease; J44.0 Chronic obstructive pulmonary disease with (acute) lower respiratory infection; R64 Cachexia; I42.0 Dilated cardiomyopathy; Z66 Do not resuscitate; R65.20 Severe sepsis without septic shock; I25.10 Atherosclerotic heart disease of native coronary artery without angina pectoris; I48.0 Paroxysmal atrial fibrillation; I12.9 Hypertensive chronic kidney disease with stage 1 through stage 4 chronic kidney disease, or unspecified chronic kidney disease; E78.00 Pure hypercholesterolemia, unspecified; E11.22 Type 2 diabetes mellitus with diabetic chronic kidney disease; K75.81 Nonalcoholic steatohepatitis (NASH); I25.5 Ischemic cardiomyopathy; I27.20 Pulmonary hypertension, unspecified; I34.0 Nonrheumatic mitral (valve) insufficiency; Z95.1 Presence of aortocoronary bypass graft; D63.1 Anemia in chronic kidney disease; E87.5 Hyperkalemia; T73.0XXA Starvation, initial encounter; Z86.73 Personal history of transient ischemic attack (TIA), and cerebral infarction without residual deficits; Z88.1 Allergy status to other antibiotic agents; Z88.2 Allergy status to sulfonamides; Z88.8 Allergy status to other drugs, medicaments and biological substances; Z79.4 Long term (current) use of insulin; Z79.899 Other long term (current) drug therapy; Z79.01 Long term (current) use of anticoagulants; I25.2 Old myocardial infarction; Z87.891 Personal history of nicotine dependence; Z68.21 Body mass index [BMI] 21.0-21.9, adult
CPT/HCPCS: 0241U; 36415; 36430; 36600; 70450; 71045; 74176; 76705; 76770; 76937; 80048; 80053; 80069; 80074; 80076; 81001; 82010; 82140; 82570; 82728; 82803; 82947; 83540; 83550; 83605; 83690; 83735; 83880; 84100; 84145; 84156; 84484; 85025; 85520; 85610; 85730; 86850; 86870; 86900; 86901; 86922; 87040; 87086; 87428-QW; 93005; 93010; 93306; 93451; 94760; 96374; 96375; 96376; 97110; 97116; 97161; 97165; 99152; 99153; 99285-25; A9270; C1751; C1769; C1894; G0480; J0171; J0456; J0696; J1250; J1430; J1644; J1815; J2270; J2405; J2916; J3010; J3411; J3475; J7030; J7040; J7050; J7060; J7120; P9016; Q5106

== ENCOUNTER → 2024-10-11 | Outpatient (CLI) | payer OTHER ==
[~2024-10-11] MED LIST changes: +Acetaminophen325 M1 PO; +CARV6.25 PO; +HYDRA25 PO; +ISODIN20 PO; +ISOSORBIDE MONO60 MG PO; +NITR.4SL SL; +OMEGA-3 + VITA1 EAC2; +SEVEC800 PO; +SOAANZ40 M1 PO; +Triamcinolone A15 G3; +[UNRECOGNIZED DRUG - OTHER] SC
[2024-10-11 14:37] LABS: Stool Occult Bld Immuno 1 Positive (NEGATIVE); Stool Occult Bld Immuno 2 Positive (NEGATIVE); Stool Occult Bld Immuno 3 Negative (NEGATIVE)
== END ==
LOC: LAB 13:26 → LAB SHORT 13:26 → LAB FUT 09-29 17:05
PROVIDERS: Registered Nurse Oncology
DX: N18.4 Chronic kidney disease, stage 4 (severe) (principal); D50.9 Iron deficiency anemia, unspecified
CPT/HCPCS: 82274

== ENCOUNTER 2024-10-27 16:22 | Emergency (ER) | payer OTHER ==
[~2024-10-27] VITALS: Ht 172.7 cm; Wt 64.9 kg
[2024-10-27 17:27] LABS: BASOPHILS ABSOLUTE AUTO 0.08 K/mm3 (0.00-0.23); BASOPHILS PERCENT AUTO 1 % (0-2); EOSINOPHILS ABSOLUTE AUTO 0.39 K/mm3 (0.00-0.68); EOSINOPHILS PERCENT AUTO 4 % (0-6); Hematocrit 33.4 % (37.0-53.0); IMMATURE GRAN ABSOLUTE AUTO 0.09 K/mm3 (0.00-0.10); IMMATURE GRAN PERCENT AUTO 1 % (0-1); LYMPHOCYTES ABSOLUTE AUTO 3.93 K/mm3 (0.84-5.20); LYMPHOCYTES PERCENT AUTO 35 % (21-46); MONOCYTES ABSOLUTE AUTO 0.87 K/mm3 (0.16-1.47); MONOCYTES PERCENT AUTO 8 % (4-13); Mean Corpuscular HGB 31.2 pg (26.0-34.0); Mean Corpuscular HGB Conc 32.9 g/dL (31.5-36.5); Mean Corpuscular Volume 95 fL (80-100); Mean Platelet Volume 9.4 fL (9.1-12.4); NEUTROPHILS ABSOLUTE AUTO 5.89 K/mm3 (1.96-9.15); NEUTROPHILS PERCENT AUTO 52 % (41-73); Platelet Count 262 K/mm3 (150-400); RDW Coefficient Variation 15.7 % (11.7-14.2); RDW Standard Deviation 54.6 fL (35.1-46.3); Red Blood Cell Count 3.53 M/mm3 (4.30-5.90); White Blood Cell Count 11.25 K/mm3 (4.00-11.30)
[2024-10-27] MEDS ORDERED: Acetaminophen 500 MG Tab PO ONE (17:45)
[2024-10-27 18:03] LABS: Albumin, Blood 3.4 g/dL (3.4-5.0); Albumin/Globulin Ratio 0.8 (0.8-1.8); Bilirubin, Total 0.3 mg/dL (0.1-1.0); Bun/Creatinine Ratio 34.6 (12.0-20.0); Creatinine, Blood 2.43 mg/dL (0.60-1.20); Potassium, Blood 5.2 mmol/L (3.5-5.5); Total Protein, Blood 7.4 g/dL (6.4-8.2)
[2024-10-27] MEDS ORDERED: FentaNYL Citrate 50 MCG/ML 2 ML Injection IV ONE (19:10)
[2024-10-27] MEDS ORDERED: Clindamycin 600mg in D5W 50 ML IV ONE (19:25)
[2024-10-27] MEDS ORDERED: Clindamycin HC150 MG PO (20:11)
[2024-10-27] MEDS ORDERED: RX Prepack 6 Tabs Oxycodone 5mg UD ONE (20:15)
[2024-10-27 20:20] VITALS: BP 138/74
== END 2024-10-27 20:24 | disposition home or self-care (01) ==
LOC: ER 16:22
PROVIDERS: Student in an Organized Health Care Education/Training Program
DX: L03.116 Cellulitis of left lower limb (principal); I70.202 Unspecified atherosclerosis of native arteries of extremities, left leg; E11.9 Type 2 diabetes mellitus without complications; Z87.891 Personal history of nicotine dependence
CPT/HCPCS: 80053; 85025; 93005; 93010; 93926; 93971; 96365; 96375; 99284-25; A9270; J3010

== ENCOUNTER 2024-11-10 10:29 | Day surgery (SDC) | payer OTHER ==
[2024-11-10] VITALS (12 sets, daily range): BP systolic 137–168; BP diastolic 70–92
[~2024-11-10] VITALS: Ht 172.7 cm; Wt 62.6 kg
[~2024-11-10 10:29] MED LIST changes: +Clindamycin HC150 MG PO; +FARXIGA5 MG PO; +GABA300 PO; +HYDACE10B PO
[2024-11-10] MEDS ORDERED: Heparin Sodium 1000 Units/ML 10ML MDV ONE ×2 (11:46→13:32)
[2024-11-10] MEDS ORDERED: NS 250 ML IV ONE ×2 (11:46→11:47)
[2024-11-10] MEDS ORDERED: NS 1,000 ML IV ONE ×2 (11:47→11:57)
[2024-11-10] MEDS ORDERED: Nitroglycerin 2 MG/20 ML BTL ONE (11:47)
[2024-11-10] MEDS ORDERED: FentaNYL Citrate 50 MCG/ML 2 ML Injection ONE (11:57)
[2024-11-10] MEDS ORDERED: Midazolam HCl 1MG / ML 2ML Vial ONE (11:57)
--- NOTE | 2024-11-10 14:04 | NUR ---
pt to recovery from lab. pt a&o. groin site soft and non-tender per pt. no bleeding/hematoma noted. bilat pt and dp pulses present. pt given soda per request.
--- NOTE | 2024-11-10 14:25 | NUR ---
GROIN SITE SOFT AND NON-TENDER PER PT. NO BLEEDING/HEMATOMA NOTED.
--- NOTE | 2024-11-10 15:02 | NUR ---
groin site soft and non-tender per pt. no bleeding/hematoma noted.
--- NOTE | 2024-11-10 15:03 | NUR ---
pt sat to 30 degrees
--- NOTE | 2024-11-10 15:42 | NUR ---
groin site soft and non-tender per pt. no bleeding/hematoma noted. bilat pt and dp pulses present.
[2024-11-10] MEDS ORDERED: HYDROcodone 10-APAP 325 TAB PO ONE (15:55)
--- NOTE | 2024-11-10 16:08 | NUR ---
PT AMBULATED TO RESTROOM W/ USE OF WALKER. PT NOW BACK IN BED.
--- NOTE | 2024-11-10 16:41 | NUR ---
pt and given dc instructions and verbalized understanding. iv out. pt chnaged. groin site soft and non-tender per pt. no bleeding/hematoma noted. pt taken to [facility] via wc. to drive pt home.
== END 2024-11-10 16:54 | disposition home or self-care (01) ==
LOC: MHTC 10:29
DX: I70.222 Atherosclerosis of native arteries of extremities with rest pain, left leg (principal); I25.10 Atherosclerotic heart disease of native coronary artery without angina pectoris; I12.9 Hypertensive chronic kidney disease with stage 1 through stage 4 chronic kidney disease, or unspecified chronic kidney disease; E11.22 Type 2 diabetes mellitus with diabetic chronic kidney disease; N18.4 Chronic kidney disease, stage 4 (severe); I48.0 Paroxysmal atrial fibrillation; E78.5 Hyperlipidemia, unspecified; F17.210 Nicotine dependence, cigarettes, uncomplicated; Z95.1 Presence of aortocoronary bypass graft; Z79.01 Long term (current) use of anticoagulants; Z79.4 Long term (current) use of insulin; Z88.0 Allergy status to penicillin; Z88.2 Allergy status to sulfonamides; Z88.8 Allergy status to other drugs, medicaments and biological substances; Z79.899 Other long term (current) drug therapy
CPT/HCPCS: 75625; 75716; 75774; 76937; 85347; 99152; 99153; A9270; C1725; C1760; C1769; C1887; C1894; C2623; C9764; C9772; J1644; J2250; J3010; J7030; J7050; Q9967

== ENCOUNTER 2025-05-09 13:39 | Emergency (ER) | payer OTHER ==
[~2025-05-09] VITALS: Ht 172.7 cm; Wt 64.4 kg
[2025-05-09] MEDS ORDERED: Dexamethasone Sod Phos 10 MG/ML 1ML VIAL IV ONE (15:20)
[2025-05-09] MEDS ORDERED: Ampicillin Sod/Sulbactam Sod 3 GM in NS 100 ML IV ONE (15:20)
[2025-05-09] MEDS ORDERED: Norco 5-325 Ta1 EACH PO (15:44)
[2025-05-09] MEDS ORDERED: AMOCLA875 PO (15:44)
[2025-05-09] MEDS ORDERED: Prednisone20 MG PO (15:44)
[2025-05-09] MEDS ORDERED: HYDROcodone 5-APAP 325 TAB PO ONE (15:45)
[2025-05-09 16:04] VITALS: BP 150/73
== END 2025-05-09 16:06 | disposition home or self-care (01) ==
LOC: ER 13:39
DX: H61.009 Unspecified perichondritis of external ear, unspecified ear (principal); E11.22 Type 2 diabetes mellitus with diabetic chronic kidney disease; I50.9 Heart failure, unspecified; N18.6 End stage renal disease; Z99.2 Dependence on renal dialysis; Z86.73 Personal history of transient ischemic attack (TIA), and cerebral infarction without residual deficits; Z87.891 Personal history of nicotine dependence; Z95.1 Presence of aortocoronary bypass graft; Z88.2 Allergy status to sulfonamides; Z88.0 Allergy status to penicillin; Z88.1 Allergy status to other antibiotic agents; Z88.6 Allergy status to analgesic agent; Z88.8 Allergy status to other drugs, medicaments and biological substances; Z79.01 Long term (current) use of anticoagulants; Z79.4 Long term (current) use of insulin; Z79.899 Other long term (current) drug therapy
CPT/HCPCS: 96365; 96375; 99282-25; A9270; J0295; J1100

== ENCOUNTER 2025-06-09 13:27 | Inpatient (IN) | payer OTHER ==
[~2025-06-09] VITALS: Ht 172.7 cm; Wt 65.7 kg
[~2025-06-09 13:27] MED LIST changes: +AMOCLA875 PO; +Prednisone20 MG PO
[2025-06-09 14:32] LABS: pH Blood Venous 7.30 (7.34-7.37)
[2025-06-09 14:36] LABS: BASOPHILS ABSOLUTE AUTO 0.05 K/mm3 (0.00-0.23); BASOPHILS PERCENT AUTO 1 % (0-2); EOSINOPHILS ABSOLUTE AUTO 0.10 K/mm3 (0.00-0.68); EOSINOPHILS PERCENT AUTO 1 % (0-6); Hematocrit 22.7 % (37.0-53.0); Hemoglobin 7.4 g/dL (13.5-17.5); IMMATURE GRAN ABSOLUTE AUTO 0.17 K/mm3 (0.00-0.10); IMMATURE GRAN PERCENT AUTO 2 % (0-1); LYMPHOCYTES ABSOLUTE AUTO 2.95 K/mm3 (0.84-5.20); LYMPHOCYTES PERCENT AUTO 28 % (21-46); MONOCYTES ABSOLUTE AUTO 1.01 K/mm3 (0.16-1.47); MONOCYTES PERCENT AUTO 10 % (4-13); Mean Corpuscular HGB Conc 32.6 g/dL (31.5-36.5); Mean Corpuscular Volume 97 fL (80-100); NEUTROPHILS ABSOLUTE AUTO 6.30 K/mm3 (1.96-9.15); NEUTROPHILS PERCENT AUTO 60 % (41-73); NRBC ABSOLUTE 0.02 K/mm3 (0.00-0.02); NRBC Auto 0.2 /100 WBC (0.0-0.2); Platelet Count 401 K/mm3 (150-400); RDW Coefficient Variation 14.3 % (11.7-14.2); RDW Standard Deviation 49.8 fL (35.1-46.3)
[2025-06-09 15:07] LABS: Alanine Aminotransfer (ALT/SGP 22 U/L (12-78); Albumin, Blood 3.0 g/dL (3.4-5.0); Albumin/Globulin Ratio 0.7 (0.8-1.8); Anion Gap 14 mmol/L (3-11); Aspartate Aminotrans (AST/SGOT 14 U/L (12-37); Bilirubin, Total 0.5 mg/dL (0.1-1.0); Blood Urea Nitrogen 70 mg/dL (8-24); CO2, Blood 16 mmol/L (21-32); Calcium, Blood 8.6 mg/dL (8.5-10.1); Chloride, Blood 111 mmol/L (98-108); Creatinine, Blood 4.15 mg/dL (0.60-1.20); Globulin, Blood 4.3 g/dL (2.2-4.0); Glucose, Blood 139 mg/dL (70-99); Potassium, Blood 4.8 mmol/L (3.5-5.5); Sodium, Blood 136 mmol/L (136-145); Total Protein, Blood 7.3 g/dL (6.4-8.2)
[2025-06-09 15:17] LABS: Prothrombin Time Results 12.1 Sec (9.7-11.5)
[2025-06-09] MEDS ORDERED: Doxycycline Hyclate 100 MG in Dextrose 5% 250 ML IV ONE (15:50)
[2025-06-09] MEDS ORDERED: CefTRIAXone Sodium 1,000 MG in NS 100 ML IV ONE (15:50)
[2025-06-09 16:18] LABS: Influenza A, PCR NEGATIVE (NEGATIVE); Influenza B, PCR NEGATIVE (NEGATIVE); Resp Syncytial Virus, PCR NEGATIVE (NEGATIVE); SARS-Cov-2 (COVID-19) PCR, MMC NEGATIVE (NEGATIVE)
[2025-06-09] MEDS ORDERED: FLU VACC TS2025-26(6MOS UP)/PF 45 MCG/0.5 ML SYRINGE IM SCH (18:45)
[2025-06-09] MEDS ORDERED: NS 1,000 ML IV ONE (19:25)
[2025-06-09 20:26] LABS: Magnesium, Blood 2.3 mg/dL (1.6-2.4)
[2025-06-09] MEDS ORDERED: Insulin Glargine-Yfgn 100 Unit/mL 3 ML SYR SC SCH (21:00)
[2025-06-09 21:05] VITALS: BP 147/95
[2025-06-10] VITALS (15 sets, daily range): BP systolic 136–160; BP diastolic 67–99
--- NOTE | 2025-06-10 02:24 | NUR ---
LATE ENTRY ASSUMPTION OF CARE PT ARRIVED TO PCU AROUND 2119. THIS RN WENT TO ROOM AND PER ER NURSE PT STOOD AND TRANSFERED TO PCU BED. PT A&O X4, CALM, COOPERATIVE TO CARE. PT IN SR, HR IN THE 70'S. HE DENIED ANY CP/PRESSURE, HX OF NEUROPATHY, SBPS TABLE. HE DENIED ANY SOB, SpO2 >92% ON RA. PT HAS BROWN IN PLACE, PLACED IN ER FOR ACUTE RETENTION. PT HAD LABS DRAWN AROUND 2300. PT HAD CRITICAL POTASSIUM OF 6.7. DR TABOR CALLED AND NOTIFED. ORDER FOR 50 MEQ AMP OF SODIUM BICARB AND SODIUM BICARD GTT AT RATE OF 150 ML/HR. BILL TABOR CALL HIM WITH MORNING LABS. PT RESTING IN BED AT THIS TIME. CALL SHABNAM SALCEDO.
[2025-06-10 03:38] LABS: BASOPHILS ABSOLUTE AUTO 0.05 K/mm3 (0.00-0.23); BASOPHILS PERCENT AUTO 1 % (0-2); EOSINOPHILS ABSOLUTE AUTO 0.22 K/mm3 (0.00-0.68); EOSINOPHILS PERCENT AUTO 3 % (0-6); Hematocrit 23.5 % (37.0-53.0); Hemoglobin 7.7 g/dL (13.5-17.5); IMMATURE GRAN ABSOLUTE AUTO 0.12 K/mm3 (0.00-0.10); IMMATURE GRAN PERCENT AUTO 1 % (0-1); LYMPHOCYTES ABSOLUTE AUTO 3.01 K/mm3 (0.84-5.20); LYMPHOCYTES PERCENT AUTO 34 % (21-46); MONOCYTES ABSOLUTE AUTO 0.94 K/mm3 (0.16-1.47); MONOCYTES PERCENT AUTO 11 % (4-13); Mean Corpuscular HGB Conc 32.8 g/dL (31.5-36.5); Mean Corpuscular Volume 95 fL (80-100); NEUTROPHILS ABSOLUTE AUTO 4.54 K/mm3 (1.96-9.15); NEUTROPHILS PERCENT AUTO 51 % (41-73); NRBC ABSOLUTE 0.03 K/mm3 (0.00-0.02); NRBC Auto 0.3 /100 WBC (0.0-0.2); Platelet Count 321 K/mm3 (150-400); RDW Coefficient Variation 14.7 % (11.7-14.2); RDW Standard Deviation 50.5 fL (35.1-46.3)
[2025-06-10 03:57] LABS: Albumin, Blood 2.5 g/dL (3.4-5.0); Anion Gap 14 mmol/L (3-11); Blood Urea Nitrogen 75 mg/dL (8-24); CO2, Blood 16 mmol/L (21-32); Calcium, Blood 8.3 mg/dL (8.5-10.1); Chloride, Blood 112 mmol/L (98-108); Creatinine, Blood 4.29 mg/dL (0.60-1.20); Glucose, Blood 127 mg/dL (70-99); Phosphorus, Blood 6.1 mg/dL (2.5-4.9); Potassium, Blood 4.3 mmol/L (3.5-5.5); Sodium, Blood 138 mmol/L (136-145)
--- NOTE | 2025-06-10 06:21 | NUR ---
SHIFT SUMMARY PT A&O X4, CALM, COOPERATIVE TO CARE. HR IN THE 80'S-90'S, SR. HE DENIES ANY CP/PRESSURE, NUMB/TINGLING, SBP STABLE. PT ON RA, SpO2 >92%, RR IN THE 20'S, EVEN AND UNLABORED. HE DENIES ANY SOB AT THIS TIME. PT RECEIVED 1 UNIT OF PRB'S. PT HAS URINAL AT BEDSIDE WITH APPROX 1100MLS OUT. PT HAS INTERMITTENT HEADACHE T/O NIGHT, MEDICATED PER EMAR. PT RESTING IN BED AT THIS TIME. CALL LIGHT IN REACH. WILL MONITOR PT AND REPORT TO ONCOMING RN.
[2025-06-10] MEDS ORDERED: Insulin Human Lispro 100 Units/ML 3ML Syringe SC SCH (07:30)
[2025-06-10] MEDS ORDERED: Cholecalciferol 1000 Unit Tablet (=25MCG) PO SCH (09:00)
[2025-06-10] MEDS ORDERED: Albuterol 2.5 MG/3 ML VIAL INH PRN (10:55)
[2025-06-10] MEDS ORDERED: Formoterol/Mometasone MDI 5/200 mcg 13 GM INH SCH (11:05)
--- NOTE | 2025-06-10 11:08 | NUR ---
Spiritual Care Visit | Pt. request Pt. is awake in bed and welcomes my visit. Pt. is known to this rehabilitation attendant from several previous hospital visits. Facilitated an update. Considered matters of family, nelly and belief. Pt. verbalizes that "he is ready to go" and that he is tired, but otherwise does not display evidence of a serious condition. Hospitalist visits and gives an update. Afterward this rehabilitation attendant prayed with the Pt. Pt. verbalized gratitude for the spiritual care visit. Will remain available to the Pt.
[2025-06-10 13:53] LABS: Influenza A/2009-H1 Not Detected (NOT DETECT); SARS-Cov-2 (COVID-19), BioFire Not Detected (NOT DETECT)
[2025-06-10] MEDS ORDERED: NS 500 ML IV ONE (14:15)
[2025-06-10] MEDS ORDERED: NS 500 ML IV SCH (14:15)
[2025-06-10] MEDS ORDERED: Ketorolac Tromethamine 15mg Vial IV ONE (17:10)
--- NOTE | 2025-06-10 18:34 | NUR ---
SHIFT SUMMARY- PT HAD A C/O SOB EARLIER IN THE DAY, LUNG SOUNDS COARSE AND WHEEZY, WITH CRACKLES IN THE BASES. PT HAD A NAGGING COUGH. SPOKE TO DR MCKEON, RESP PANEL NEGATIVE, PT PLACED ON 3L VIA NC D/T ACCESSORY MUSCLE USE AND C/O SOB. IV STEROIDS STARTED. PT MEDICATED FOR JOYNER WITH TYLENOL WITH NO EFFECT, FIORICET ORDERED AND GIVEN, STILL NO EFFECT. SPOKE TO AGAIN AND TORADOL WAS ORDERED OT IV 15MG, WELL HEAD CT, PT IS CONCERNED, HIS LAST SEVERE HEADACHE RESULTED IN A STROKE. (PER PT STATEMENT) PT RECIEVED ONE UNIT PRBC'S WITH NO ADVERSE EFFECTS NOTED. DID NOT EXCEED 100ML/HR RATE. PT HAS NOT HAD A STOOL, NEW ORDER FOR LACTULOSE STARTED TODAY 4 TIMES A DAY SCHEDULED. DR MARROQUIN STOOL SAMPLE SENT FOR GUIACC. WILL PASS ON TO NIGHT RN IN BEDSIDE REPORT. PT SITTING AT THE EOB, CALL LIGHT IN REACH NO S&S OF DISTRESS NOTED ON 3L O2 VIA NC, Q4 PRN Tx AVAILABLE FROM RT IF NEEDED.
[2025-06-11] VITALS (9 sets, daily range): BP systolic 113–173; BP diastolic 67–96
[2025-06-11 05:00] LABS: BASOPHILS ABSOLUTE AUTO 0.01 K/mm3 (0.00-0.23); BASOPHILS PERCENT AUTO 0 % (0-2); EOSINOPHILS ABSOLUTE AUTO 0.00 K/mm3 (0.00-0.68); EOSINOPHILS PERCENT AUTO 0 % (0-6); Hematocrit 27.5 % (37.0-53.0); Hemoglobin 9.2 g/dL (13.5-17.5); IMMATURE GRAN ABSOLUTE AUTO 0.17 K/mm3 (0.00-0.10); IMMATURE GRAN PERCENT AUTO 3 % (0-1); LYMPHOCYTES ABSOLUTE AUTO 1.00 K/mm3 (0.84-5.20); LYMPHOCYTES PERCENT AUTO 16 % (21-46); MONOCYTES ABSOLUTE AUTO 0.10 K/mm3 (0.16-1.47); MONOCYTES PERCENT AUTO 2 % (4-13); Mean Corpuscular HGB Conc 33.5 g/dL (31.5-36.5); Mean Corpuscular Volume 93 fL (80-100); NEUTROPHILS ABSOLUTE AUTO 4.83 K/mm3 (1.96-9.15); NEUTROPHILS PERCENT AUTO 79 % (41-73); NRBC ABSOLUTE 0.05 K/mm3 (0.00-0.02); NRBC Auto 0.8 /100 WBC (0.0-0.2); Platelet Count 311 K/mm3 (150-400); RDW Coefficient Variation 14.6 % (11.7-14.2); RDW Standard Deviation 48.9 fL (35.1-46.3)
[2025-06-11 05:11] LABS: Prothrombin Time Results 12.4 Sec (9.7-11.5)
[2025-06-11 05:32] LABS: Albumin, Blood 2.6 g/dL (3.4-5.0); Anion Gap 15 mmol/L (3-11); Blood Urea Nitrogen 82 mg/dL (8-24); CO2, Blood 15 mmol/L (21-32); Calcium, Blood 8.4 mg/dL (8.5-10.1); Chloride, Blood 107 mmol/L (98-108); Creatinine, Blood 4.04 mg/dL (0.60-1.20); Glucose, Blood 331 mg/dL (70-99); Phosphorus, Blood 5.6 mg/dL (2.5-4.9); Potassium, Blood 4.4 mmol/L (3.5-5.5); Sodium, Blood 133 mmol/L (136-145); Total Iron Binding Capacity 220 ug/dL (250-450)
--- NOTE | 2025-06-11 06:01 | NUR ---
SHIFT SUMMARY PATIENT IS A/O X 4, COOPERATIVE WITH CARE AND IS ABLE TO MAKE NEEDS KNOWN. SINUS RHYTHM/SINUS TACH BBB 90-110s. SBP 140-150s. PATIENT ON 3L NC WITH SPO2 >98% AT START OF SHIFT. TITRATED DOWN UNTIL PATIENT WAS ON ROOM AIR AND MAINTAINING >92%. DESATS TO MID 80s WHILE SLEEPING. PATIENT IS CURRENTLY >95% ON 2L NC. HE BECOMES SOB AND TACHY WHEN TRANSFERRING TO [facility] [place], RESOLVES AT REST. PATIENT ENDORSES HEADACHE HAS BEEN IMPROVING SINCE CT SCAN WAS DONE, CURRENT RATING 4/10. STOOL SAMPLE SENT TO LAB, RESULTS PENDING. PATIENT ABDOMEN IS MILDLY DISTENDED, REPORTS ITS HIS BASELINE. PATIENT RESTING COMFORTABLY IN ROOM. BED LOCKED IN LOWEST POSITION, CALL LIGHT WITHIN REACH.
[2025-06-11 07:12] LABS: Stool Occult Blood Guaiac 1 Pos (Neg)
[2025-06-11] MEDS ORDERED: Epoetin Alfa-EPBX 10,000 Unit/ML 1ML Vial SC SCH (09:00)
--- NOTE | 2025-06-11 10:44 | NUR ---
CALLED DR WALKER TWICE RE CBG. TC. NO RETURN. TEXTED TO CALL ME. AWAITING.
[2025-06-11] MEDS ORDERED: Insulin Human Lispro 100 Units/ML 3ML Syringe SC SCH (11:30)
--- NOTE | 2025-06-11 11:47 | NUR ---
PCU GLUER MACHINE SETUP OPERATOR ABLE TO CONTACT ORDERS GIVEN AND DR WINTER 10 UNITS FOR THIS DOSE. AWARE OF CB 392. PT STATES IS APPROP.
--- NOTE | 2025-06-11 12:58 | NUR ---
PT C/O CBG TOO HIGH. DID GIVE 10 U ALREADY BEFORE LUNCH. HIS UNIT SHOWS >400. WE WILL CHECK AND DISCUSS WITH DR WALKER. PT AWARE WAS TAKIBNG STEROIDS AND THIS HAS EFFECT. DISCUSSED LACTULOSE. 3 STOOLS SO FAR TODAY. STATES VERY SOFT PUDDING. FEELS LIKELY TO GO TO [facility] IF TAKES LACTULOSE THIS DOSE. HELD.
[2025-06-11] MEDS ORDERED: Insulin Human Lispro 100 Units/ML 3ML Syringe SC ONE (13:10)
--- NOTE | 2025-06-11 13:11 | NUR ---
SPOKE TO DR WALKER. CBG 468 AFTER EATING SOME LUNCH. ALREADY GAVE 10 U PRIOR TO LUNCH. ORDERS FOR 10 U HUMALOG X1 NOW.
--- NOTE | 2025-06-11 14:39 | NUR ---
1420 NEW CBG 491 AN HOUR AFTER [address] WALKER, NO ANS. TEXTED TO CALL ME RE CBG
[2025-06-11] MEDS ORDERED: Insulin Glargine-Yfgn 100 Unit/mL 3 ML SYR SC ONE (14:50)
--- NOTE | 2025-06-11 15:01 | NUR ---
CHARGE SPOKE TO , ORDERS TO STOP STEROIDS, LABS AT 1700, 20 UNITS LONG ACTING INSULIN GLARGINE NOW.
--- NOTE | 2025-06-11 17:28 | NUR ---
[address] WALKER RE BP AND CBG OF 378. NOW MOVING IN CORRECT DIRECTION ON CBG, MISSING B/P MEDS. HE TO ORDER. ALSO NO CHANGE ON INSULIN FOR THIS DINNER DOSE. 10 UNITS.
--- NOTE | 2025-06-11 17:30 | NUR ---
PT SOME AGITATED T/O DAY REGARDING THE CBG INCREASES. NOT SEEMING TO COME DOWN. THIS SETH, FINALLY GETTING BETTER. PT COUNTENANCE IMPROVED ALSO. BP UP THIS AFT. MED RESTARTED, PT OFF O2 THIS AFTERNOON. R/A. LUNGS CLEAR. STEROIDS STOPPED. NO OTHER NEW CONCERNS NOTED. BED IN LOW POSITION, CALL LITE IN REACH, CALLS APPROP
[2025-06-11 17:33] LABS: Anion Gap 18.0 mmol/L (3-11); Blood Urea Nitrogen 85.0 mg/dL (8-24); CO2, Blood 17.0 mmol/L (21-32); Calcium, Blood 8.5 mg/dL (8.5-10.1); Chloride, Blood 100.0 mmol/L (98-108); Creatinine, Blood 4.02 mg/dL (0.60-1.20); Glucose, Blood 295.0 mg/dL (70-99); Potassium, Blood 4.4 mmol/L (3.5-5.5); Sodium, Blood 131.0 mmol/L (136-145)
[2025-06-12 04:00] LABS: BASOPHILS ABSOLUTE AUTO 0.02 K/mm3 (0.00-0.23); BASOPHILS PERCENT AUTO 0 % (0-2); EOSINOPHILS ABSOLUTE AUTO 0.00 K/mm3 (0.00-0.68); EOSINOPHILS PERCENT AUTO 0 % (0-6); Hematocrit 28.6 % (37.0-53.0); Hemoglobin 9.4 g/dL (13.5-17.5); IMMATURE GRAN ABSOLUTE AUTO 0.27 K/mm3 (0.00-0.10); IMMATURE GRAN PERCENT AUTO 2 % (0-1); LYMPHOCYTES ABSOLUTE AUTO 1.80 K/mm3 (0.84-5.20); LYMPHOCYTES PERCENT AUTO 13 % (21-46); MONOCYTES ABSOLUTE AUTO 0.89 K/mm3 (0.16-1.47); MONOCYTES PERCENT AUTO 7 % (4-13); Mean Corpuscular HGB Conc 32.9 g/dL (31.5-36.5); Mean Corpuscular Volume 96 fL (80-100); NEUTROPHILS ABSOLUTE AUTO 10.62 K/mm3 (1.96-9.15); NEUTROPHILS PERCENT AUTO 78 % (41-73); NRBC ABSOLUTE 0.16 K/mm3 (0.00-0.02); NRBC Auto 1.2 /100 WBC (0.0-0.2); Platelet Count 324 K/mm3 (150-400); RDW Coefficient Variation 14.7 % (11.7-14.2); RDW Standard Deviation 50.6 fL (35.1-46.3)
[2025-06-12 04:19] VITALS: BP 153/85
[2025-06-12 04:27] LABS: Albumin, Blood 2.6 g/dL (3.4-5.0); Anion Gap 15 mmol/L (3-11); Blood Urea Nitrogen 94 mg/dL (8-24); CO2, Blood 15 mmol/L (21-32); Calcium, Blood 8.6 mg/dL (8.5-10.1); Chloride, Blood 108 mmol/L (98-108); Creatinine, Blood 3.98 mg/dL (0.60-1.20); Glucose, Blood 160 mg/dL (70-99); Phosphorus, Blood 5.0 mg/dL (2.5-4.9); Potassium, Blood 4.3 mmol/L (3.5-5.5); Sodium, Blood 134 mmol/L (136-145)
--- NOTE | 2025-06-12 05:47 | NUR ---
SHIFT SUMMARY PATIENT A/O X 4, USES CALL LIGHT APPROPRIATELY AND IS COOPERATIVE WITH CARE. SR BBB PVC 80-90s, BP STABLE. LUNG SOUNDS CLEAR T/O, SATS >92% ON ROOM AIR. PATIENT SBA TO BATHROOM, TOLERATES WELL. NO ACUTE EVENTS THIS SHIFT. MD WALKER TO ROOM AT 0535, DISCUSSED POSSIBILITY OF DISCHARGE TODAY WITH PATIENT. PATIENT WAS AGREEABLE TO PLAN. PATIENT RESTING COMFORTABLY IN ROOM. BED LOCKED IN LOWEST POSITION, CALL LIGHT WITHIN REACH.
[2025-06-12 07:25] VITALS: BP 148/85
[2025-06-12] MEDS ORDERED: Insulin Human Lispro 100 Units/ML 3ML Syringe SC ONE (07:25)
[2025-06-12] MEDS ORDERED: BUME2 PO (08:04)
[2025-06-12] MEDS ORDERED: ZEBUTAL 50-3251 EAC1 PO (08:05)
[2025-06-12] MEDS ORDERED: Enulose10 GM/15 M PO (08:07)
[2025-06-12] MEDS ORDERED: SODBIC650 PO (08:08)
[2025-06-12] MEDS ORDERED: DULERA 100 MCG/13 GM INH (08:08)
[2025-06-12] MEDS ORDERED: TRAZ50 PO (08:09)
--- NOTE | 2025-06-12 08:52 | NUR ---
AM NOTE: PATIENT ALERT AND ORIENTED X4. DENIES PAIN THIS MORNING. PERRLA, WEARING GLASSES. MOVING ALL EXTREMITIES. SBA WITH CANE TO BATHROOM. TELE SHOWING SR WITH PVC'S. HR 80-90'S. DENIES CHEST PAIN/PRESSURE/PALPITATIONS. NO EDEMA NOTED. IV'S SALINE LOCKED. ON ROOM AIR SATING ABOVE 95%. SOB WITH EXCERTION. LUNG SOUNDS CLEAR. DENIES COUGH. BOWEL TONES PRESENT. TOLERATING PO DIET WITHOUT ISSUES. BLOOD GLUCOSE CHECKS. BLOOD SUGAR 138 THIS MORNING AND PATIENT REQUESTING 10 UNITS OF HUMALOG WITH BREAKFAST. DR. WALKER ON UNIT AND ORDERS FOR 10 UNITS OF HUMALOG SC X1 DOSE WITH BREAKFAST. ORDERS IN PLACE AND INSULIN GIVEN. DENIES ABDOMINAL PAIN/NAUSEA. UP TO BATHROOM TO VOID. SKIN WITH SCATTERED BRUISING AND SCABS. CALL LIGHT IN REACH. DENIES NEEDS AT THIS TIME.
--- NOTE | 2025-06-12 11:08 | NUR ---
DISCHARGE: NO ACUTE CHANGES. PATIENT REMAINS ALERT AND ORIENTED ON ROOM AIR. TELE SHOWING SINUS RHYTHM. DENIES PAIN. UP WITH SBA TO BATHROOM. AT BEDSIDE FOR DISCHARGE INSTRUCTIONS. THIS RN EDUCATED ON NEW MEDICATIONS, FOLLOW UP APPOINTMENTS, SIGNS AND SYMPTOMS OF WHEN TO RETURN AND TO CHARGE AIDE MEIDCATIONS FROM [facility]. PATIENT LEFT VIA WHEELCHAIR WITH ALL PERSONAL BELONGINGS.
== END 2025-06-12 11:50 | disposition home or self-care (01) | DRG 280 ==
LOC: ER 13:27 → PCU 18:40
PROVIDERS: Emergency Medicine; Hospitalist; Internal Medicine; Student in an Organized Health Care Education/Training Program; ADMIT Family Medicine
PROC: 30233N1 Transfusion of Nonautologous Red Blood Cells into Peripheral Vein, Percutaneous Approach (ICD-10-PCS; principal; 2025-06-09)
PROC: 3E03329 Introduction of Other Anti-infective into Peripheral Vein, Percutaneous Approach (ICD-10-PCS; 2025-06-09)
PROC: 3E02340 Introduction of Influenza Vaccine into Muscle, Percutaneous Approach (ICD-10-PCS; 2025-06-09)
DX: I13.2 Hypertensive heart and chronic kidney disease with heart failure and with stage 5 chronic kidney disease, or end stage renal disease (principal); I50.23 Acute on chronic systolic (congestive) heart failure; I21.A1 Myocardial infarction type 2; J18.9 Pneumonia, unspecified organism; N17.9 Acute kidney failure, unspecified; E87.20 Acidosis, unspecified; J44.1 Chronic obstructive pulmonary disease with (acute) exacerbation; J44.0 Chronic obstructive pulmonary disease with (acute) lower respiratory infection; N18.5 Chronic kidney disease, stage 5; I42.0 Dilated cardiomyopathy; Z66 Do not resuscitate; F41.9 Anxiety disorder, unspecified; E11.42 Type 2 diabetes mellitus with diabetic polyneuropathy; G47.00 Insomnia, unspecified; R51.9 Headache, unspecified; E78.5 Hyperlipidemia, unspecified; D50.9 Iron deficiency anemia, unspecified; D63.1 Anemia in chronic kidney disease; E83.39 Other disorders of phosphorus metabolism; E11.22 Type 2 diabetes mellitus with diabetic chronic kidney disease; T38.0X5A Adverse effect of glucocorticoids and synthetic analogues, initial encounter; E11.65 Type 2 diabetes mellitus with hyperglycemia; Z23 Encounter for immunization; Z86.73 Personal history of transient ischemic attack (TIA), and cerebral infarction without residual deficits; Z95.1 Presence of aortocoronary bypass graft; Z88.8 Allergy status to other drugs, medicaments and biological substances; Z88.2 Allergy status to sulfonamides; Z88.1 Allergy status to other antibiotic agents; Z79.01 Long term (current) use of anticoagulants; Z79.4 Long term (current) use of insulin; Z79.85 Long-term (current) use of injectable non-insulin antidiabetic drugs; Z79.899 Other long term (current) drug therapy; Z79.891 Long term (current) use of opiate analgesic; Z79.52 Long term (current) use of systemic steroids; Z87.19 Personal history of other diseases of the digestive system; Z87.891 Personal history of nicotine dependence
CPT/HCPCS: 0202U; 36415; 36430; 70450; 71045; 74176; 80048; 80053; 80069; 82272; 82803; 82947; 83540; 83550; 83605; 83690; 83735; 83880; 84484; 85025; 85610; 85730; 86850; 86870; 86900; 86901; 86902; 86922; 87637; 93005; 93010; 94640; 94664; 94762; 96365; 96375; 99285-25; A9270; J0696; J1815; J1885; J2919; J7030; J7040; J7060; P9016; Q5106

== ENCOUNTER → 2025-06-16 | Outpatient (CLI) | payer OTHER ==
[~2025-06-16] MED LIST changes: +BUME2 PO; +DULERA 100 MCG/13 GM INH; +Enulose10 GM/15 M PO; +SODBIC650 PO; +TRAZ50 PO; +ZEBUTAL 50-3251 EAC1 PO
[2025-06-16 16:47] LABS: BASOPHILS ABSOLUTE AUTO 0.05 K/mm3 (0.00-0.23); BASOPHILS PERCENT AUTO 0 % (0-2); EOSINOPHILS ABSOLUTE AUTO 0.09 K/mm3 (0.00-0.68); EOSINOPHILS PERCENT AUTO 1 % (0-6); Hematocrit 27.9 % (37.0-53.0); Hemoglobin 9.1 g/dL (13.5-17.5); IMMATURE GRAN ABSOLUTE AUTO 0.28 K/mm3 (0.00-0.10); IMMATURE GRAN PERCENT AUTO 2 % (0-1); LYMPHOCYTES ABSOLUTE AUTO 2.72 K/mm3 (0.84-5.20); LYMPHOCYTES PERCENT AUTO 21 % (21-46); MONOCYTES ABSOLUTE AUTO 1.18 K/mm3 (0.16-1.47); MONOCYTES PERCENT AUTO 9 % (4-13); Mean Corpuscular HGB Conc 32.6 g/dL (31.5-36.5); Mean Corpuscular Volume 94 fL (80-100); NEUTROPHILS ABSOLUTE AUTO 8.48 K/mm3 (1.96-9.15); NEUTROPHILS PERCENT AUTO 66 % (41-73); NRBC ABSOLUTE 0.02 K/mm3 (0.00-0.02); NRBC Auto 0.2 /100 WBC (0.0-0.2); Platelet Count 311 K/mm3 (150-400); RDW Coefficient Variation 15.4 % (11.7-14.2); RDW Standard Deviation 51.6 fL (35.1-46.3)
[2025-06-16 17:00] LABS: Albumin, Blood 2.7 g/dL (3.4-5.0); Anion Gap 17 mmol/L (6-16); Blood Urea Nitrogen 67 mg/dL (8-24); CO2, Blood 22 mmol/L (21-32); Calcium, Blood 8.8 mg/dL (8.5-10.1); Chloride, Blood 103 mmol/L (98-108); Creatinine, Blood 3.75 mg/dL (0.60-1.20); Glucose, Blood 151 mg/dL (70-99); Phosphorus, Blood 4.7 mg/dL (2.5-4.9); Potassium, Blood 4.2 mmol/L (3.5-5.5); Sodium, Blood 138 mmol/L (136-145)
[2025-06-16 19:20] LABS: Ferritin, Serum 119.0 ng/mL (26-388)
[2025-06-16 19:21] LABS: Total Iron Binding Capacity 238.0 ug/dL (250-450)
[2025-06-16 19:43] LABS: Creatinine, Urine Random 59.3 mg/dL (27.00-270.00); Protein, Urine Random 163.6 mg/dL (0.0-11.9); Protein/Creat Ratio, Ur Random 2.8
== END ==
LOC: LAB 16:31 → LAB SHORT 16:31
PROVIDERS: Internal Medicine Nephrology
DX: E11.22 Type 2 diabetes mellitus with diabetic chronic kidney disease (principal); I12.9 Hypertensive chronic kidney disease with stage 1 through stage 4 chronic kidney disease, or unspecified chronic kidney disease; D63.1 Anemia in chronic kidney disease; E55.9 Vitamin D deficiency, unspecified; N18.4 Chronic kidney disease, stage 4 (severe)
CPT/HCPCS: 80069; 82306; 82570; 82728; 83540; 83550; 83970; 84156; 85025

== ENCOUNTER 2025-06-18 23:17 | Emergency (ER) | payer OTHER ==
[~2025-06-18] VITALS: Ht 170.2 cm; Wt 63.5 kg
[2025-06-18 23:44] LABS: BASOPHILS ABSOLUTE AUTO 0.05 K/mm3 (0.00-0.23); BASOPHILS PERCENT AUTO 0 % (0-2); EOSINOPHILS ABSOLUTE AUTO 0.10 K/mm3 (0.00-0.68); EOSINOPHILS PERCENT AUTO 1 % (0-6); IMMATURE GRAN ABSOLUTE AUTO 0.31 K/mm3 (0.00-0.10); IMMATURE GRAN PERCENT AUTO 2 % (0-1); LYMPHOCYTES ABSOLUTE AUTO 3.44 K/mm3 (0.84-5.20); LYMPHOCYTES PERCENT AUTO 21 % (21-46); MONOCYTES ABSOLUTE AUTO 1.27 K/mm3 (0.16-1.47); MONOCYTES PERCENT AUTO 8 % (4-13); Mean Corpuscular HGB Conc 30.5 g/dL (31.5-36.5); Mean Corpuscular Volume 100 fL (80-100); NEUTROPHILS ABSOLUTE AUTO 10.88 K/mm3 (1.96-9.15); NEUTROPHILS PERCENT AUTO 68 % (41-73); NRBC ABSOLUTE 0.00 K/mm3 (0.00-0.02); NRBC Auto 0.0 /100 WBC (0.0-0.2); Platelet Count 262 K/mm3 (150-400); RDW Coefficient Variation 15.1 % (11.7-14.2); RDW Standard Deviation 53.8 fL (35.1-46.3)
[2025-06-19 00:04] LABS: Hematocrit 17.4 % (37.0-53.0); Hemoglobin 5.3 g/dL (13.5-17.5)
[2025-06-19 00:06] LABS: Prothrombin Time Results 13.1 Sec (9.7-11.5)
[2025-06-19 00:10] LABS: Magnesium, Blood 2.2 mg/dL (1.6-2.4)
[2025-06-19 00:11] LABS: Alanine Aminotransfer (ALT/SGP 15.0 U/L (12-78); Albumin, Blood 2.0 g/dL (3.4-5.0); Albumin/Globulin Ratio 0.6 (0.8-1.8); Anion Gap 15.0 mmol/L (3-11); Aspartate Aminotrans (AST/SGOT 12.0 U/L (12-37); Bilirubin, Total 0.4 mg/dL (0.1-1.0); Blood Urea Nitrogen 103.0 mg/dL (8-24); CO2, Blood 15.0 mmol/L (21-32); Calcium, Blood 7.9 mg/dL (8.5-10.1); Chloride, Blood 110.0 mmol/L (98-108); Creatinine, Blood 4.33 mg/dL (0.60-1.20); Globulin, Blood 3.3 g/dL (2.2-4.0); Glucose, Blood 205.0 mg/dL (70-99); Potassium, Blood 4.9 mmol/L (3.5-5.5); Sodium, Blood 135.0 mmol/L (136-145); Total Protein, Blood 5.3 g/dL (6.4-8.2)
[2025-06-19] MEDS ORDERED: Morphine Sulfate 4 MG/1 ML Injection IV ONE ×3 (01:10→05:45)
[2025-06-19] MEDS ORDERED: Ondansetron HCl 2 MG / ML 2ML Vial IV ONE (01:10)
[2025-06-19] MEDS ORDERED: NS 500 ML IV SCH (02:20)
[2025-06-19 06:00] VITALS: BP 126/68
== END 2025-06-19 06:05 | disposition home or self-care (01) ==
LOC: ER 23:17
PROVIDERS: Student in an Organized Health Care Education/Training Program
DX: K92.2 Gastrointestinal hemorrhage, unspecified (principal); D64.9 Anemia, unspecified; R53.1 Weakness; Z79.01 Long term (current) use of anticoagulants; Z87.891 Personal history of nicotine dependence; Z86.73 Personal history of transient ischemic attack (TIA), and cerebral infarction without residual deficits; Z79.899 Other long term (current) drug therapy; Z79.4 Long term (current) use of insulin; Z88.2 Allergy status to sulfonamides; Z88.0 Allergy status to penicillin; Z88.6 Allergy status to analgesic agent; Z88.8 Allergy status to other drugs, medicaments and biological substances; Z88.1 Allergy status to other antibiotic agents
CPT/HCPCS: 36430; 80053; 83690; 83735; 85025; 85610; 85730; 86850; 86870; 86900; 86901; 86902; 86922; 93005; 93010; 96374; 96375; 96376; 99284-25; J1938; J2270; J2405; J7030; P9016

== ENCOUNTER 2025-06-29 07:44 | Inpatient (IN) | payer OTHER ==
[~2025-06-29] VITALS: Ht 167.6 cm; Wt 64.7 kg
[2025-06-29 08:25] LABS: BASOPHILS ABSOLUTE AUTO 0.05 K/mm3 (0.00-0.23); BASOPHILS PERCENT AUTO 0 % (0-2); EOSINOPHILS ABSOLUTE AUTO 0.24 K/mm3 (0.00-0.68); EOSINOPHILS PERCENT AUTO 2 % (0-6); Hematocrit 28.2 % (37.0-53.0); Hemoglobin 9.0 g/dL (13.5-17.5); IMMATURE GRAN ABSOLUTE AUTO 0.07 K/mm3 (0.00-0.10); IMMATURE GRAN PERCENT AUTO 1 % (0-1); LYMPHOCYTES ABSOLUTE AUTO 1.37 K/mm3 (0.84-5.20); LYMPHOCYTES PERCENT AUTO 11 % (21-46); MONOCYTES ABSOLUTE AUTO 0.95 K/mm3 (0.16-1.47); MONOCYTES PERCENT AUTO 7 % (4-13); Mean Corpuscular HGB Conc 31.9 g/dL (31.5-36.5); Mean Corpuscular Volume 89 fL (80-100); NEUTROPHILS ABSOLUTE AUTO 10.23 K/mm3 (1.96-9.15); NEUTROPHILS PERCENT AUTO 79 % (41-73); NRBC ABSOLUTE 0.00 K/mm3 (0.00-0.02); NRBC Auto 0.0 /100 WBC (0.0-0.2); Platelet Count 400 K/mm3 (150-400); RDW Coefficient Variation 17.0 % (11.7-14.2); RDW Standard Deviation 54.9 fL (35.1-46.3)
[2025-06-29 08:36] LABS: Alanine Aminotransfer (ALT/SGP 22.0 U/L (12-78); Albumin, Blood 2.5 g/dL (3.4-5.0); Albumin/Globulin Ratio 0.5 (0.8-1.8); Anion Gap 14.0 mmol/L (3-11); Aspartate Aminotrans (AST/SGOT 16.0 U/L (12-37); Bilirubin, Total 0.6 mg/dL (0.1-1.0); Blood Urea Nitrogen 81.0 mg/dL (8-24); CO2, Blood 22.0 mmol/L (21-32); Calcium, Blood 8.9 mg/dL (8.5-10.1); Chloride, Blood 101.0 mmol/L (98-108); Creatinine, Blood 4.82 mg/dL (0.60-1.20); Globulin, Blood 5.0 g/dL (2.2-4.0); Glucose, Blood 183.0 mg/dL (70-99); Potassium, Blood 4.8 mmol/L (3.5-5.5); Sodium, Blood 132.0 mmol/L (136-145); Total Protein, Blood 7.5 g/dL (6.4-8.2)
[2025-06-29] MEDS ORDERED: NS 1,000 ML IV SCH (08:55)
[2025-06-29] MEDS ORDERED: Vancomycin (Pharmacy Consult) IV ONE (09:45)
[2025-06-29] MEDS ORDERED: Cefepime HCl 1,000 MG in NS 100 ML IV ONE (09:50)
[2025-06-29] MEDS ORDERED: FLU VACC TS2025-26(6MOS UP)/PF 45 MCG/0.5 ML SYRINGE IM SCH (11:35)
[2025-06-29] MEDS ORDERED: Ondansetron HCl 2 MG / ML 2ML Vial IV PRN (11:35)
[2025-06-29] MEDS ORDERED: ELIQUIS5 M2 PO (12:01)
[2025-06-29] MEDS ORDERED: CARVEDILOL3.125 MG PO (12:02)
[2025-06-29] MEDS ORDERED: COREG6.25 MG PO (12:03)
[2025-06-29] MEDS ORDERED: JARDIANCE10 MG PO (12:04)
[2025-06-29] MEDS ORDERED: EZET10 PO (12:05)
[2025-06-29] MEDS ORDERED: TOUJEO MAX SC (12:06)
[2025-06-29] MEDS ORDERED: Humalog KwikPen 100 SC (12:07)
[2025-06-29] MEDS ORDERED: ISODIN20 PO (12:08)
[2025-06-29] MEDS ORDERED: LOVAZA 1 GM PO (12:09)
[2025-06-29] MEDS ORDERED: RENVELA800 MG PO (12:10)
[2025-06-29] MEDS ORDERED: Insulin Human Lispro 100 Units/ML 3ML Syringe SC SCH ×2 (12:30→16:30)
--- NOTE | 2025-06-29 13:53 | NUR ---
REPORT FROM ED.
[2025-06-29 14:26] VITALS: BP 125/69
[2025-06-29] MEDS ORDERED: CefTRIAXone Sodium 2,000 MG in NS 100 ML IV SCH (14:30)
[2025-06-29] MEDS ORDERED: Albuterol 2.5 MG/3 ML VIAL INH PRN (15:55)
--- NOTE | 2025-06-29 17:34 | NUR ---
SHIFT SUMMARY PATIENT ADMITTED TO MEDICAL FROM ED. A/O 3-4. SKIN INTACT PER 2 RN CHECK. ABLE TO AMBULATE TO BATHROOM SBA. ON 2 LITERS O2 NC, BASELINE RA.
[2025-06-29 19:21] VITALS: BP 151/70
[2025-06-29] MEDS ORDERED: HYDROcodone 5-APAP 325 TAB PO PRN (20:45)
[2025-06-29] MEDS ORDERED: Omega-3 Acid Ethyl Esters 1,000 MG CAP PO SCH (21:00)
[2025-06-29] MEDS ORDERED: Cefepime HCl 2,000 MG in NS 100 ML IV SCH (21:00)
[2025-06-29 23:18] LABS: Influenza A/2009-H1 Not Detected (NOT DETECT); SARS-Cov-2 (COVID-19), BioFire Not Detected (NOT DETECT)
[2025-06-30] VITALS (7 sets, daily range): BP systolic 111–137; BP diastolic 65–82
--- NOTE | 2025-06-30 06:36 | NUR ---
SHIFT SUMMARY ALERT, ORIENTED TO PLACE AND PERSON; DECLINED TO ANSWER SITUATION AND TIME QUESTIONS. SINUS RHYTHM, VSS ON RA. PT REMOVED NASAL CANNULA FREQUENTLY, SPOT CHECKS FOUND SPO2 > 92% AT ALL TIMES. PT DENIES SOB. REPORTS "ENTIRE MOUTH" "ALL TEETH" 8-9/10 PAIN; NO OBVIOUS INFLAMMATION OR LESION IN MOUTH. PRN NORCO EFFECTIVE. PT DOES NOT KNOW ALL OF HIS MEDICATIONS; RECONCILIATION STILL NEEDED; PT REPORTS WILL BRING MED LIST. RESPIRATORY SWAB SENT TO LAB. SAFETY PRECAUTIONS IN PLACE, CALL LIGHT IN REACH.
[2025-06-30] MEDS ORDERED: Vancomycin (Pharmacy Consult) IV SCH (07:30)
[2025-06-30] MEDS ORDERED: Insulin Glargine-Yfgn 100 Unit/mL 3 ML SYR SC SCH (09:00)
[2025-06-30 10:24] LABS: BASOPHILS ABSOLUTE AUTO 0.04 K/mm3 (0.00-0.23); BASOPHILS PERCENT AUTO 0 % (0-2); EOSINOPHILS ABSOLUTE AUTO 0.06 K/mm3 (0.00-0.68); EOSINOPHILS PERCENT AUTO 1 % (0-6); Hematocrit 24.6 % (37.0-53.0); Hemoglobin 8.0 g/dL (13.5-17.5); IMMATURE GRAN ABSOLUTE AUTO 0.04 K/mm3 (0.00-0.10); IMMATURE GRAN PERCENT AUTO 0 % (0-1); LYMPHOCYTES ABSOLUTE AUTO 1.65 K/mm3 (0.84-5.20); LYMPHOCYTES PERCENT AUTO 16 % (21-46); MONOCYTES ABSOLUTE AUTO 0.66 K/mm3 (0.16-1.47); MONOCYTES PERCENT AUTO 7 % (4-13); Mean Corpuscular HGB Conc 32.5 g/dL (31.5-36.5); Mean Corpuscular Volume 89 fL (80-100); NEUTROPHILS ABSOLUTE AUTO 7.69 K/mm3 (1.96-9.15); NEUTROPHILS PERCENT AUTO 76 % (41-73); NRBC ABSOLUTE 0.00 K/mm3 (0.00-0.02); NRBC Auto 0.0 /100 WBC (0.0-0.2); Platelet Count 342 K/mm3 (150-400); RDW Coefficient Variation 17.1 % (11.7-14.2); RDW Standard Deviation 54.4 fL (35.1-46.3)
[2025-06-30 11:50] LABS: Ferritin, Serum 320.0 ng/mL (26-388); Magnesium, Blood 2.7 mg/dL (1.6-2.4); Total Iron Binding Capacity 165.0 ug/dL (250-450)
[2025-06-30 11:56] LABS: Alanine Aminotransfer (ALT/SGP 17.0 U/L (12-78); Albumin, Blood 2.2 g/dL (3.4-5.0); Albumin/Globulin Ratio 0.5 (0.8-1.8); Anion Gap 14.0 mmol/L (3-11); Aspartate Aminotrans (AST/SGOT 13.0 U/L (12-37); Bilirubin, Total 0.4 mg/dL (0.1-1.0); Blood Urea Nitrogen 108.0 mg/dL (8-24); CO2, Blood 21.0 mmol/L (21-32); Calcium, Blood 8.4 mg/dL (8.5-10.1); Chloride, Blood 103.0 mmol/L (98-108); Creatinine, Blood 4.8 mg/dL (0.60-1.20); Globulin, Blood 4.6 g/dL (2.2-4.0); Glucose, Blood 417.0 mg/dL (70-99); Phosphorus, Blood 5.5 mg/dL (2.5-4.9); Potassium, Blood 4.6 mmol/L (3.5-5.5); Sodium, Blood 133.0 mmol/L (136-145); Total Protein, Blood 6.8 g/dL (6.4-8.2)
--- NOTE | 2025-06-30 20:33 | NUR ---
SUMMARY- PT A/O X4, ABLE TO AMBULATE INDEPENDANT TODAY IN THE HALLWAY WITH WALKER, STEADY, KNOWS HIS LIMITS. PT DENIES ANY HALLULCINATIONS TODAY, IMPROVED MENTATION TODAY. SEEMS IN GOOD SPIRITS, GETS EMOTIONAL AND TALKS OPENLY ABOUT HIS ILLNESS AND FEELING HE IS CLOSE TO SEEING . TALKED OPENLY ABOUT HIS FEARS AND OFFERED FREQ REASSURANCE. REJI SEAMAN IN TO EVAL PT EARLY AFTERNOON. AGREED PT WOULD BENEFIT FROM DIURESING. DC'D SOME OF THE ABX FOR POSS NEPH TOX. PT'S MAIN COMPLAINT TODAY IS FROM DENTAL PAIN, STATES IT RUNS INTO HIS JAW AND NECK AND GIVES HIM A HEADACHE. STAETS HE HAS A DENTAL APT SCHEDULED. DENTAL HYGENE CONSULT PLACED. NO NOTABLE ABCESS OR VISIBLE ANOMALIES NOTED IN MOUTH FROM INSPECTION. MEDICATED WITH NORCO 1, X1 TODAY AND MED DC'D. CALLED TO OBTAIN ORDER FOR CONT C/O PAIN. OXY ADMIN WITH PARTIAL RELIEF. PT HAS TELE SR BBB RATE 70-80'S. AFIBRILE TODAY. ROOM AIR, FINE CRACKLES IN BASES. CBG AC/HS WITH 8UNITS EACH MEAL PLUS SSI, HIGH 200'S THIS AM AND LUNCH, CAME DOWN AT DINNER TIME TO 192, COVERED WITH RX INSULIN. REORTED ALL TO NOC TAZ BAUTISTA TO RESUME CARE
--- NOTE | 2025-07-01 05:53 | NUR ---
SHIFT SUMMARY PT IS A&OX4, PLEASANT AND COOPERATIVE WITH CARE. PT IS ANXIOUS ABOUT OUTCOME OF CARE AND EMOTIONAL T/O SHIFT. PT REPORTED PAIN TO TEETH AND JAW THIS SHIFT. PT AMBULATED HALLS c FWW. NO ACUTE CHANGES THIS SHIFT. PT RESTED T/O SHIFT WITH EVEN AND UNLABORED RESPIRATIONS, BED IN THE LOWEST POSITION, AND CALL LIGHT WITHIN REACH.
[2025-07-01 06:18] LABS: BASOPHILS ABSOLUTE AUTO 0.06 K/mm3 (0.00-0.23); BASOPHILS PERCENT AUTO 1 % (0-2); EOSINOPHILS ABSOLUTE AUTO 0.38 K/mm3 (0.00-0.68); EOSINOPHILS PERCENT AUTO 4 % (0-6); Hematocrit 25.5 % (37.0-53.0); Hemoglobin 8.1 g/dL (13.5-17.5); IMMATURE GRAN ABSOLUTE AUTO 0.07 K/mm3 (0.00-0.10); IMMATURE GRAN PERCENT AUTO 1 % (0-1); LYMPHOCYTES ABSOLUTE AUTO 1.46 K/mm3 (0.84-5.20); LYMPHOCYTES PERCENT AUTO 14 % (21-46); MONOCYTES ABSOLUTE AUTO 0.72 K/mm3 (0.16-1.47); MONOCYTES PERCENT AUTO 7 % (4-13); Mean Corpuscular HGB Conc 31.8 g/dL (31.5-36.5); Mean Corpuscular Volume 90 fL (80-100); NEUTROPHILS ABSOLUTE AUTO 7.47 K/mm3 (1.96-9.15); NEUTROPHILS PERCENT AUTO 74 % (41-73); NRBC ABSOLUTE 0.00 K/mm3 (0.00-0.02); NRBC Auto 0.0 /100 WBC (0.0-0.2); Platelet Count 392 K/mm3 (150-400); RDW Coefficient Variation 17.0 % (11.7-14.2); RDW Standard Deviation 55.9 fL (35.1-46.3)
[2025-07-01 06:38] LABS: Albumin, Blood 2.3 g/dL (3.4-5.0); Anion Gap 13 mmol/L (3-11); Blood Urea Nitrogen 86 mg/dL (8-24); CO2, Blood 20 mmol/L (21-32); Calcium, Blood 8.6 mg/dL (8.5-10.1); Chloride, Blood 104 mmol/L (98-108); Creatinine, Blood 4.89 mg/dL (0.60-1.20); Glucose, Blood 125 mg/dL (70-99); Phosphorus, Blood 4.7 mg/dL (2.5-4.9); Potassium, Blood 3.9 mmol/L (3.5-5.5); Sodium, Blood 133 mmol/L (136-145); Total Iron Binding Capacity 186 ug/dL (250-450)
[2025-07-01 07:39] VITALS: BP 142/66
[2025-07-01 08:55] VITALS: BP 132/55
[2025-07-01] MEDS ORDERED: Epoetin Alfa-EPBX 10,000 Unit/ML 1ML Vial SC SCH (09:00)
[2025-07-01] MEDS ORDERED: Vitamin B Cmplx/Vit C/Folic Ac 1 Tab PO SCH (09:00)
[2025-07-01] MEDS ORDERED: Insulin Human Lispro 100 Units/ML 3ML Syringe SC SCH (10:00)
[2025-07-01 11:39] VITALS: BP 126/68
[2025-07-01] MEDS ORDERED: Sod Ferric Gluc Complx/Sucrose 125 MG in NS 100 ML IV SCH (12:00)
--- NOTE | 2025-07-01 16:04 | NUR ---
PALLIATIVE CONSULT RECEIVED AND PROCESSED. PT HAS HX OF CVA, ESRD AND CHF WITH EF OF 20-25%. POLST ON FILE WITH [facility] POLST.
[2025-07-01 17:04] VITALS: BP 150/84
--- NOTE | 2025-07-01 18:41 | NUR ---
Patient able to answer question this morning had trouble with the date. very forgetful. easily redirectable. c/o of jaw pain 04/15, increased pain medication per dr order. His pain isnt related to "teeth" states "it all of my whole jaw and teeth" Cognition deterioration throughout day. is very concerned with current altered mental status. Wants to talk to Dr directly is worried that "something has happened" . Message is on white board with phone number. Patient is emotional offen crying or crying out. Vitals remain wnl. Patient ambulates with walker independently. Patient has decreased appetite.
[2025-07-01 19:19] VITALS: BP 128/65
[2025-07-01] MEDS ORDERED: Lidocaine 2% Viscous Soln 15 ML UDC MT PRN (19:25)
[2025-07-01] MEDS ORDERED: Nystatin 100,000 Unit/ML Susp 5 ML UDC SS SCH (21:00)
[2025-07-02] VITALS (7 sets, daily range): BP systolic 113–141; BP diastolic 56–81
[2025-07-02 04:53] LABS: BASOPHILS ABSOLUTE AUTO 0.07 K/mm3 (0.00-0.23); BASOPHILS PERCENT AUTO 1 % (0-2); EOSINOPHILS ABSOLUTE AUTO 0.55 K/mm3 (0.00-0.68); EOSINOPHILS PERCENT AUTO 6 % (0-6); Hematocrit 26.8 % (37.0-53.0); Hemoglobin 8.5 g/dL (13.5-17.5); IMMATURE GRAN ABSOLUTE AUTO 0.11 K/mm3 (0.00-0.10); IMMATURE GRAN PERCENT AUTO 1 % (0-1); LYMPHOCYTES ABSOLUTE AUTO 1.51 K/mm3 (0.84-5.20); LYMPHOCYTES PERCENT AUTO 15 % (21-46); MONOCYTES ABSOLUTE AUTO 0.79 K/mm3 (0.16-1.47); MONOCYTES PERCENT AUTO 8 % (4-13); Mean Corpuscular HGB Conc 31.7 g/dL (31.5-36.5); Mean Corpuscular Volume 89 fL (80-100); NEUTROPHILS ABSOLUTE AUTO 7.01 K/mm3 (1.96-9.15); NEUTROPHILS PERCENT AUTO 70 % (41-73); NRBC ABSOLUTE 0.00 K/mm3 (0.00-0.02); NRBC Auto 0.0 /100 WBC (0.0-0.2); Platelet Count 400 K/mm3 (150-400); RDW Coefficient Variation 16.9 % (11.7-14.2); RDW Standard Deviation 54.7 fL (35.1-46.3)
[2025-07-02 05:46] LABS: Albumin, Blood 2.2 g/dL (3.4-5.0); Anion Gap 13 mmol/L (3-11); Blood Urea Nitrogen 74 mg/dL (8-24); C-Reactive Protein, High Sens. 117.000 mg/L (0.000-3.000); CO2, Blood 20 mmol/L (21-32); Calcium, Blood 8.8 mg/dL (8.5-10.1); Chloride, Blood 105 mmol/L (98-108); Creatinine, Blood 5.23 mg/dL (0.60-1.20); Glucose, Blood 166 mg/dL (70-99); Phosphorus, Blood 5.4 mg/dL (2.5-4.9); Potassium, Blood 3.8 mmol/L (3.5-5.5); Sodium, Blood 134 mmol/L (136-145)
--- NOTE | 2025-07-02 07:25 | NUR ---
SHIFT SUMMARY: Pt is admitted for hypoxic respiratory failure and is a DNR. is alert and able to make needs known. Is alert 2-3. ADLs have been mostly IND. at times due to the varying levels of confusion he has needed help with things like untangling phone line, O2 line and teley cables. This LN has helped a couple of times and spent several minuets at this each attempt. When waking up it has taken several moments for him to reorient to current situation. And was noted wondering the us and attempting to enter a different room to find a rest room. Or to find his friend matheus.he has been redirectable before entering the other rooms. He did state that he was in pain near the start of shift. When xylocane swish was received from pharmacy LN attempted to wake PT up for admin. PT stated he just wanted to sleep at that time . medication was placed in studio operations engineer in charge wait for next statement of pain. On follow up assessments of pain he would state that he was doing ok. Tele noted sinus in the 80s with a bundle branch and no events.
[2025-07-02] MEDS ORDERED: Iron Dextran 50 MG / ML 2ML Vial IV ONE (11:00)
[2025-07-02] MEDS ORDERED: Iron Dextran 975 MG in NS 250 ML IV ONE (12:00)
--- NOTE | 2025-07-02 15:12 | NUR ---
SHIFT SUMMARY PATIENT A/O X 1-2, FORGETFUL. NOT ABLE TO RECALL SIMPLE CONVERSATIONS FROM MINUTES PRIOR. ASSISTED WITH CALLING HIS PER REQUEST, MULTIPLE TIMES THROUGHOUT SHIFT. ABLE TO NAP INTERMITTENTLY. NEW IV SITE. NO BM. UP IN ROOM WITH SHUFFLING GAIT. BED ALARMED. CALL LIGHT IN REACH, PATIENT NOT USING IT THIS SHIFT, BED EXITING.
--- NOTE | 2025-07-02 18:51 | NUR ---
RECEIVED CALL FROM , VOICING CONCERNS REGARDING PATIENT'S MENTAL STATUS. PATIENT NOT ORIENTED FOR MOST OF THE DAY. UNABLE TO COMPREHEND HOW TO WRITE PHONE NUMBER WHEN VERBALLY TOLD NUMBERS. NOT ORIENTED TO ANYTHING BUT SELF.
[2025-07-03 00:45] VITALS: BP 142/64
--- NOTE | 2025-07-03 01:39 | NUR ---
DOCTOR AWARE DOCTOR MADE AWARE OF INCREASED CONFUSION AND SYMPTOMS ESPECIALLY WITH 110 HR, ALTHOUGH VITALS WERE STABLE. . THIS RN STATED THE ISSUES AND THAT HE DOES HAVE NEUROPATHY BUT DID MAKE THE COMMENT TO THE SPECIAL DELIVERY MESSENGER OF THE STING[facility]. DOCTOR TOLD RN TO CONTINUE TO MONITOR. BED ALARM IS ON, INCREASED MONITORING ON THE PATIENT
--- NOTE | 2025-07-03 02:50 | NUR ---
SHIFT SUMMARY PATIENT HAS DECLINING MENTAL STATUS BUT STILL TALKS, BUT NONE OF HIS SENTECES ARE RELATED. VITALS WNL, DID HAVE TACHYCARDIA OF 110 WHEN GETTING UP. HOWEVER NO SYMTOMS WERE OBSERVED. DR MADE AWARE OF LABS, AND DECLING MENTAL STATUS, AND THE SYMPTOMS OF HR AND NUBNESS/TINGLING IN LEGS (THAT PATIENT STATED WAS FROM THE NEUROPATHY). BED ALARM IS ON, CALL LIGHT WITHIN REACH ALTHOUGH PATIENT DOES NOT USE, BED AT LOWEST LEVEL.
[2025-07-03 03:57] VITALS: BP 118/73
[2025-07-03 05:44] LABS: Albumin, Blood 2.1 g/dL (3.4-5.0); Anion Gap 12 mmol/L (3-11); Blood Urea Nitrogen 69 mg/dL (8-24); CO2, Blood 22 mmol/L (21-32); Calcium, Blood 9.6 mg/dL (8.5-10.1); Chloride, Blood 106 mmol/L (98-108); Creatinine, Blood 4.86 mg/dL (0.60-1.20); Glucose, Blood 125 mg/dL (70-99); Phosphorus, Blood 5.5 mg/dL (2.5-4.9); Potassium, Blood 3.7 mmol/L (3.5-5.5); Sodium, Blood 136 mmol/L (136-145)
[2025-07-03 07:45] VITALS: BP 126/72
--- NOTE | 2025-07-03 10:02 | NUR ---
CONTACTED DR AARON PRICE WIFES CONCERNS, COGNITION CHANGES. PATIENT PRESENTING WITH SIMILAR CHANGES PREVIOUS DAY SHIFT. AT THIS TIME IS MORE OREIENTED THAN YESTERDAY. CONTINUES TO BE AT BEDSIDE.
[2025-07-03 10:23] VITALS: BP 94/83
--- NOTE | 2025-07-03 12:08 | NUR ---
DR WALKER IN ROOM ROUNDING. AND DAUGHTERS AT BEDSIDE. DISCUSSED COMFORT CARE AND ANXIETY CONTROL. ORDERS RECEIVED. PATIENT TEARFUL AND EXPRESSING FEAR OVER HIS CURRENT MENTAL STATE. STATES THAT FAMILY IS AGREEABLE TO COMFORT MEASURES WHENEVER HE QUAILIFIES.
[2025-07-03 12:29] VITALS: BP 126/75
--- NOTE | 2025-07-03 15:54 | NUR ---
SHIFT SUMMARY PATIENT SBA IN ROOM THIS SHIFT. ORIENTED X1-3 THIS SHIFT. SEVERAL EPISODES OF CRYING, VISUAL HALLUCINATIONS, POOR MOTOR FUNCTION INTERMITTENTLY. FAMILY IN TO SEE PATIENT THIS SHIFT. VOIDING ADEQUATELY. REPORTS PAIN IN LOWER RIGHT FOREARM, PATIENT WAS WITNESSED BY RN TO BE PINCHING HIMSELF IN THIS AREA, ONLY REDNESS NOTED AT THIS TIME. ABLE AT TIMES TO MAKE NEEDS KNOWN. CALL LIGHT IN REACH.
--- NOTE | 2025-07-03 16:45 | NUR ---
CONTACTED DR WALKER REGARDING REPORTED PAIN TO RIGHT ARM. NEW PRESENTING A ROUND RAISED AREA MEASURING 6 CM DIAMETER, PIC IN CHART. NO ORDERS RECEIVED.
[2025-07-03 20:00] VITALS: BP 152/70
[2025-07-04 00:13] VITALS: BP 115/100
[2025-07-04 04:10] VITALS: BP 153/80
[2025-07-04 05:03] LABS: BASOPHILS ABSOLUTE AUTO 0.10 K/mm3 (0.00-0.23); BASOPHILS PERCENT AUTO 1 % (0-2); EOSINOPHILS ABSOLUTE AUTO 0.44 K/mm3 (0.00-0.68); EOSINOPHILS PERCENT AUTO 3 % (0-6); Hematocrit 34.9 % (37.0-53.0); Hemoglobin 10.9 g/dL (13.5-17.5); IMMATURE GRAN ABSOLUTE AUTO 0.29 K/mm3 (0.00-0.10); IMMATURE GRAN PERCENT AUTO 2 % (0-1); LYMPHOCYTES ABSOLUTE AUTO 3.68 K/mm3 (0.84-5.20); LYMPHOCYTES PERCENT AUTO 27 % (21-46); MONOCYTES ABSOLUTE AUTO 1.02 K/mm3 (0.16-1.47); MONOCYTES PERCENT AUTO 8 % (4-13); Mean Corpuscular HGB Conc 31.2 g/dL (31.5-36.5); Mean Corpuscular Volume 90 fL (80-100); NEUTROPHILS ABSOLUTE AUTO 7.99 K/mm3 (1.96-9.15); NEUTROPHILS PERCENT AUTO 59 % (41-73); NRBC ABSOLUTE 0.02 K/mm3 (0.00-0.02); NRBC Auto 0.1 /100 WBC (0.0-0.2); Platelet Count 505 K/mm3 (150-400); RDW Coefficient Variation 17.4 % (11.7-14.2); RDW Standard Deviation 55.0 fL (35.1-46.3)
[2025-07-04 05:25] LABS: Albumin, Blood 2.6 g/dL (3.4-5.0); Anion Gap 13 mmol/L (3-11); Blood Urea Nitrogen 66 mg/dL (8-24); CO2, Blood 23 mmol/L (21-32); Calcium, Blood 9.6 mg/dL (8.5-10.1); Chloride, Blood 102 mmol/L (98-108); Creatinine, Blood 4.75 mg/dL (0.60-1.20); Glucose, Blood 132 mg/dL (70-99); Phosphorus, Blood 4.7 mg/dL (2.5-4.9); Potassium, Blood 4.1 mmol/L (3.5-5.5); Sodium, Blood 134 mmol/L (136-145)
--- NOTE | 2025-07-04 05:30 | NUR ---
SHIFT SUMMARY: PT AOX2-3 WAXES AND WANES IN MENTATION. SOMETIMES COMPLETELY WITH IT, OTHER TIMES CONFUSED, ANXIOUS, AND WORD SALAD. CONTINUES TO ENDORSE 10/10 PAIN ON HIS R ARM WITH ANY TOUCH OR STIMULUS AND WAS VERY WORKED UP ABOUT IT. MEDICATED PER EMR, GOT SEROQUEL ON BOARD WHICH HAS HELPED THE PT BE MORE CALM AND GET SOME SLEEP. IS GETTING UP AND USING THE RESTROOM, SEVERAL UNMEASURED VOIDS INTO THE TOILET. TOLERATING MEDICAIONS WELL, NO ACUTE OVERNIGHT EVENTS. PT IN BED RESTING, BED IN LOWEST POSITION, CALL LIGHT IN REACH. CONTINUING CARE.
[2025-07-04 07:32] VITALS: BP 143/77
[2025-07-04] MEDS ORDERED: Insulin Glargine-Yfgn 100 Unit/mL 3 ML SYR SC SCH (09:00)
[2025-07-04 11:38] VITALS: BP 116/62
[2025-07-04] MEDS ORDERED: BUME2 PO (16:00)
[2025-07-04] MEDS ORDERED: BUSPIRONE HCL10 M3 PO (16:01)
[2025-07-04] MEDS ORDERED: LIDO5TO TOP (16:12)
[2025-07-04] MEDS ORDERED: QUET25 PO (16:13)
[2025-07-04] MEDS ORDERED: OXYC5 PO (16:13)
--- NOTE | 2025-07-04 16:40 | NUR ---
A long visit with both daphneyte patient and his Brandi. Many tears, tension, frustration and love. I provided therapeutic listening, theological insight, gentle pet adoption counselor, prayer and encouragement. All interventions were received well with good result.
--- NOTE | 2025-07-04 17:04 | NUR ---
SHIFT SUMMARY/DISCHARGE 1645 PT AOX2-3, SEMI COOPERATIVE WITH CARE, ABLE TO MAKE NEEDS KNOWN. PT C/O OF PAIN IN RIGHT ARM THIS SHIFT, MD AWARE, ORDERS SHANICE. TOLERATING MEDICAITONS. IV DC'D BY SUPERVISOR VAT HOUSE. THIS RN WENT OVER DC PAPEROWKR WITH PT AND FAMILY MEMBER. FAMILY MEMBER REQUESTED TO TALK TO MD, THIS RN FOLLOWED UP APPROPRIATELY. FAMILY MEMBER TRANSPORTED PT VIA WHEELCHAIR DOWN TO PT ENTRANCE. ALL BELONGINGS WENT WITH PT. ROOM STRIPPED.
== END 2025-07-04 16:50 | disposition home or self-care (01) | DRG 871 ==
LOC: ER 07:44 → MEDS 11:30 → ENPENDDIS 07-04 14:58 → MEDS 07-04 16:50
PROVIDERS: Hospitalist; Internal Medicine; Student in an Organized Health Care Education/Training Program; ADMIT Family Medicine
DX: A41.9 Sepsis, unspecified organism (principal); G92.8 Other toxic encephalopathy; N18.6 End stage renal disease; J96.01 Acute respiratory failure with hypoxia; I50.23 Acute on chronic systolic (congestive) heart failure; N17.9 Acute kidney failure, unspecified; I42.0 Dilated cardiomyopathy; Z99.2 Dependence on renal dialysis; E11.22 Type 2 diabetes mellitus with diabetic chronic kidney disease; D50.9 Iron deficiency anemia, unspecified; D63.1 Anemia in chronic kidney disease; Z95.1 Presence of aortocoronary bypass graft; Z23 Encounter for immunization; Z88.2 Allergy status to sulfonamides; Z88.1 Allergy status to other antibiotic agents; Z88.8 Allergy status to other drugs, medicaments and biological substances; Z79.899 Other long term (current) drug therapy; Z79.4 Long term (current) use of insulin; Z79.01 Long term (current) use of anticoagulants; Z86.73 Personal history of transient ischemic attack (TIA), and cerebral infarction without residual deficits; Z98.890 Other specified postprocedural states; Z87.891 Personal history of nicotine dependence; Z86.19 Personal history of other infectious and parasitic diseases; Z87.01 Personal history of pneumonia (recurrent)
CPT/HCPCS: 0202U; 36415; 36430; 70450; 71046; 80053; 80069; 82607; 82728; 82746; 82947; 83540; 83550; 83605; 83735; 83880; 83970; 84075; 84100; 84145; 84484; 85025; 86141; 87040; 93005; 93010; 93306; 94760; 96361; 96365; 96367; 97110; 97116; 97161; 97165; 97530; 99285-25; A9270; J0456; J0692; J1750; J1815; J2470; J2916; J3373; J7030; J7050; Q5106